=== PATIENT | male | born 1975 | race African-American/Black ===

== ENCOUNTER 2020-07-30 13:07 | Day surgery (SDC) | payer BC ==
--- NOTE | 2020-07-29 14:04 | RAD REPORT ---
EXAM DESCRIPTION: RAD - Chest Pa And Lat (2 Views) - 07/29/2020 1:58 pm CLINICAL HISTORY: pre op, pending prostate surgery COMPARISON: None TECHNIQUE: Frontal and lateral views of the chest were obtained. FINDINGS: The lungs are clear. Heart size is normal and central vasculature is within normal limit s. No pleural effusion or pneumothorax seen. No acute bony finding noted. No aortic abnormality. External cardiac monitoring device in place. IMPRESSION: No acute cardiopulmonary process.
[2020-07-29 14:34] LABS: Absolute Lymphocytes (CBC) 1.4 K/uL (0.7-4.9); Basophils % 0.5 % (0-1.3); Hematocrit 46.7 % (39.6-49.0); Lymphocytes % 17.6 % (15.3-44.8); RBC Red Blood Cell Count 5.68 M/uL (4.33-5.43)
[2020-07-29 14:42] LABS: Protime INR 0.9
[2020-07-29 15:36] LABS: BUN Blood Urea Nitrogen 23 mg/dL (7-18); Bicarbonate 30 mmol/L (21-32); Glucose Level 392 mg/dL (74-106); Potassium 4.6 mmol/L (3.5-5.1); Sodium Level 136 mmol/L (136-145)
--- NOTE | 2020-07-30 08:17 | EKG ---
Test Date: 2020-07-29 Test Time: 13:32:09 [employer]: TG MEASUREMENT RESULTS: Intervals: Rate: 86 RI: 124 QRSD: 84 QT: 346 QTc: 414 [place]: P: 34 RI: 124 QRS: -44 T: 137 INTERPRETIVE STATEMENTS: Normal sinus rhythm Possible Left atrial enlargement Left axis deviation Left ventricular hypertrophy Nonspecific T wave abnormality Abnormal ECG No previous ECG available for comparison Electronically Signed On 07-30-20 08:16:32 CDT by Parth Harvey
--- OUTSIDE RECORDS SUMMARY | 2020-07-30 13:12 | XMS REPORT | Continuity of Care Document ---
:1975 Author Organization [facility] t Address [address] [place] [address] Care Team Providers Name Role Phone Nadir Garcia MD Attending Clinician Payers Payer Name Policy Type Policy Number Effective Date Expiration Date S lj BCBS / HMO NA 2017 [facility] 00:00:00 [facility] Problems Condition Condition Condition Status Onset Resolution Last Treating Co mments Source Name Details Category Date Date Treatment Clinician Date Weakness Problem [facility] Hyp[facility] Problem [facility] Viral Problem [facility] Hy[facility]ens[facility] Type 2 Problem Active [facility] Allergies, Adverse Reactions, Alerts Allergy Allergy Status Severity Reaction(s) Onset Inactive Treating Comm ents Source Name Type Date Date Clinician No Known DA Active U 2018-11 [facility]13 [facility] 00:[facility]: [facility] 00 [facility] Social History Social Habit Start Date Stop Date Quantity Comments Source Sex Assigned At [birth year] [facility] Medications Ordered Filled Start Stop Current Ordering Indication Dosage Frequency Signature Comments Components Source Medication Medication Date Date Medication? Clinician (SIG) Name Name Amlodipine Amlodipine Yes 10 EVERY DAY Belle Besylate Besylate @ 0900 lle (NORVASC 10 (NORVASC 10 M emoria MG TAB) 10 MG TAB) 10 l MG TAB MG TAB Hospita l Insulin Insulin Yes 40 EVERY DAY [facility] Glargine Glargine @ 0900 lle (Toujeo ([facility] Solostar) Solostar) l 300 UNIT/ML 300 UNIT/ML H ospita INJ INJ l Insulin Insulin Yes 10 TWICE Belle Lispro Lispro DAILY, lle (HUMALOG (HUMALOG BEFORE Memor ia 100 UNIT/ML 100 UNIT/ML MEALS l INJ) 100 INJ) 100 Hospita UNITS/ML UNITS/ML l INJ INJ LISINOPRIL LISINOPRIL Yes 40 EVERY DAY Belle (LISINOPRIL (LISINOPRIL @ 0900 lle 40 MG TAB) 40 MG TAB) Mem oria 40 MG TAB 40 MG TAB l Hospita l METFORMIN METFORMIN Yes 1000 EVERY DAY Belle HYDROCHLORI HYDROCHLORI @ 0900 lle DE DE Memoria (METFORMIN (METFORMIN l 1,000 MG 1,000 MG Hospita TAB) 1,000 TAB) 1,000 l MG TAB MG TAB Vital Signs Vital Name Observation Time Observation Value Comments Source BP Systolic 2020-03-23 16:55:00 147 mm[Hg] [facility] BP Diastolic 2020-03-23 16:55:00 100 mm[facility]Hg[facility] Temperature 2020-03-23 16:55:00 97.7 [degF] [facility] Res[facility] rate 2020-03-23 16:55:00 16 /min [facility] Heart Rate 2020-03-23 16:55:00 89 /min [facility] Oxygen saturation by 2020-03-23 16:55:00 96 /min [place] Pulse oximetry [facility] Height 2020-03-18 05:16:00 66 [in_i] [facility] Weight 2020-03-18 05:16:00 79.917 kg [facility] BMI (Body Mass 2020-03-18 05:16:00 28.4 kg/m2 [facility] Index) [facility] BP Systolic 2019-09-08 20:13:00 114 mm[Hg] [facility]kianna jamil [facility] BP Diastolic 2019-09-08 20:13:00 78 mm[Hg] [facility] Body Temperature 2019-09-08 20:13:00 98.6 [degF] [facility] Respiratory rate 2019-09-08 20:13:00 16 /min [facility] Heart Rate 2019-09-08 20:13:00 74 /min [facility] Oxygen saturation by 2019-09-08 20:13:00 93 /min [place] Pulse oximetry [facility] Height 2019-09-08 06:00:00 68 [in_i] [facility]kianna [facility] Weight 2019-09-08 06:00:00 77.196 kg [facility] BMI (Body Mass 2019-09-08 06:00:00 25.9 kg/m2 [facility]tsv ille Index) [facility] Procedures Procedure Date / Time Performing Clinician Source Performed CBCP W/PLT-Without Diff 2020-03-21 00:00:00 [facility] CRP (C-Reactive Protein) 2020-03-21 00:00:00 [facility] FERRITIN 2020-03-21 00:00:00 [facility] FIBRINOGEN 2020-03-21 00:00:00 [facility] LDH 2020-03-21 00:00:00 [facility] CHEST 1 VIEW (AP) 2020-03-21 00:00:00 [facility] CHEST 1 VIEW (AP) 2020-03-19 00:00:00 [facility] BASIC METABOLIC PANEL 2020-03-18 00:00:00 [facility] CRP (C-Reactive Protein) 2020-03-17 00:00:00 [facility] FERRITIN 2020-03-17 00:00:00 [facility] LDH 2020-03-17 00:00:00 [facility] CBCA W/PLT & AUTO 2020-03-17 00:00:00 [facility] COMPREHENSIVE METABOLIC 2020-03-17 00:00:00 [facility] CHEST 1 VIEW (PA) 2020-03-17 00:00:00 [facility] BASIC METABOLIC PANEL 2020-03-16 00:00:00 [facility] CBCA W/PLT & AUTO 2020-03-16 00:00:00 [facility] MAGNESIUM 2020-03-16 00:00:00 [facility] FERRITIN 2020-03-16 00:00:00 [facility] LDH 2020-03-16 00:00:00 [facility] D- DIMER 2020-03-16 00:00:00 [facility] CHEST 1 VIEW (AP) 2020-03-16 00:00:00 [facility] BASIC METABOLIC PANEL 2020-03-15 00:00:00 [facility] CBCA W/PLT & AUTO 2020-03-15 00:00:00 [facility] ARTERIAL BLOOD GASES 2020-03-15 00:00:[address] [facility] CHEST 1 VIEW (AP) 2020-03-15 00:00:00 [facility] CBCA W/PLT & AUTO 2020-03-14 00:00:00 [facility] COMPREHENSIVE METABOLIC 2020-03-14 00:00:00 [facility] MAGNESIUM 2020-03-14 00:00:00 [facility] STREP PNEUMONIAE URINARY 2020-03-14 00:00:00 [facility] GROUP A STREP SCREEN 2020-03-14 00:00:00 [facility] ARTERIAL BLOOD GASES 2020-03-14 00:00:[address] [facility] CHEST 1 VIEW (AP) 2020-03-14 00:00:00 [facility] CRP (C-Reactive Protein) 2020-03-13 00:00:00 [facility] FERRITIN 2020-03-13 00:00:00 [facility] LDH 2020-03-13 00:00:00 [facility] PROCALCITONIN 2020-03-13 00:00:00 [facility] COVID-19 2020-03-13 00:00:00 [facility] BNP RAPID 2020-03-13 00:00:00 [facility] CBCD W/PLT& MANUAL DIFF 2020-03-13 00:00:00 [facility] ARTERIAL BLOOD GASES 2020-03-13 00:00:[address] [facility] INFLUENZA A & B 2020-03-13 00:00:00 [facility] BLOOD CULTURE 2020-03-13 00:00:00 [facility] COMPREHENSIVE METABOLIC 2020-03-13 00:00:00 [facility] A1C 2020-03-13 00:00:00 [facility] MAGNESIUM 2020-03-13 00:00:00 [facility] D- DIMER 2020-03-13 00:00:00 [facility] LEGIONELLA URINARY 2020-03-13 00:00:00 [facility] GROUP A STREP SCREEN 2020-03-13 00:00:[address] [facility] RESP VIRUS PANEL (RVP) 2020-03-13 00:00:00 [facility] CHEST 1 VIEW (AP) 2020-03-13 00:00:00 [facility] CBCA W/PLT & AUTO 2019-09-08 00:00:00 [facility] METABOLIC 2019-09-08 00:00:00 [facility] HEPATITIS PANEL 2019-09-08 00:00:00 [facility] A1C 2019-09-08 00:00:00 [facility] LIPID PANEL 2019-09-08 00:00:00 [facility] LACTIC ACID 2019-09-08 00:00:00 [facility] CBCA W/PLT & AUTO 2019-09-07 00:00:00 [facility] COMPREHENSIVE METABOLIC 2019-09-07 00:00:00 [facility] UA COMPLETE W/CULTURE 2019-09-07 00:00:[address] [facility] [place] PROTIME 2019-09-07 00:00:00 [facility] PTT 2019-09-07 00:00:00 [facility] CARDIAC MARKERS PANEL 2019-09-07 00:00:00 [facility] BLO[facility] 2019-09-07 00:00:00 [facility] INFLUENZA A & B 2019-09-07 00:00:00 [facility] AMMONIA 2019-09-07 00:00:00 [facility] MALARIA 2019-09-07 00:00:00 [facility] MAGNESIUM 2019-09-07 00:00:00 [facility] CHEST 1 VIEW (AP) 2019-09-07 00:00:00 [facility] COMPREHENSIVE METABOLIC 2018-12-08 00:00:00 [facility] CBCA W/PLT & AUTO 2018-12-08 00:00:00 [facility] US LEFT EXTR VENOUS 2018-12-08 00:00:00 [facility] Plan of Care Planned Activity Planned Date Details Comments Source Instructions DI for COVID-19 [facility] (Suspected or Confirmed Hosp ital ) Instructions Coronavirus Disease 2018 [facility] Encounters Start End Encounter Admission Attending Care Care Encounter Source Date/Time Date/Time Type Type Clinicians Facility Department ID 2020-03-13 2020-03-23 Discharged [facility] [id number] [facility] 09:36:00 19:30:00 Inpatient [facility] 76 [facility] 2019-09-07 2019-09-08 Discharged [facility] hospital [id number] [place] 21:42:00 22:00:00 Inpatient [facility] 42 [facility] 2018-12-08 2018-12-08 Departed Jose, [facility] [id number] [place] 19:05:00 21:54:00 Emergency [facility] Results Test Description Test Time Test Comments Results Result Comments Source Glucose (Fingerstick) 2020-03-23 17:26:00 Test Item Value Reference Range Interpretation Comme nts Glucose (Fingerstick) (test code = 19275-0) 275 65-99 [facility] Blood [id number] 04:45:00 Test Item Value Reference Range Interpretation Comments White Blood Count (test code = 6690-2) 10.8 3.9-11.8 [facility] HospitalRed Blood [id number] 04:45:00 Test Item Value Reference Range Interpretation Comments Red Blood Count (test code = 789-8) 4.51 4.18-5.86 [facility] HospitalHemoglobin2020-04-25 04:45:00 Test Item Value Reference Range Interpretation Comments Hemoglobin (test code = 718-7) 12.3 13.1-17.5 [facility] HospitalHematocrit2020-04-25 04:45:00 Test Item Value Reference Range Interpretation Comments Hematocrit (test code = 16440-7) 35.6 38.7-51.4 [facility] Corpuscular [id number] 04:45:00 Test Item Value Reference Range Interpretation Comments Mean Corpuscular Volume (test code = 78.8 79.8-99.1 52178-5) [facility] Corpuscular [id number] 04:45:00 Test Item Value Reference Range Interpretation Comments Mean Corpuscular Hemoglobin (test code 27.2 26.3-34.0 = 91282-8) [facility] Corpuscular Hgb Concent [id number] 04:45:00 Test Item Value Reference Range Interpretation Comments Mean Corpuscular Hgb Concent Diff (test 34.5 32.0-36.0 code = 38900-6) [facility] HospitalRed Cell Distribution [id number] 04:45:00 Test Item Value Reference Range Interpretation Comments Red Cell Distribution Width (test code 15.9 11.4-14.5 = 47931-5) [facility] HospitalPlatelet [id number] 04:45:00 Test Item Value Reference Range Interpretation Comments Platelet Count (test code = 777-3) 312 152-386 [facility] Platelet [id number] 04:45:00 Test Item Value Reference Range Interpretation Comments Mean Platelet Volume (test code = 8.1 6.8-10.1 88790-7) [facility] HospitalFibrinogen2020-04-25 04:45:00 Test Item Value Reference Range Interpretation Comments Fibrinogen (test code = 3255-7) 483 200-395 [facility] HospitalLactate [id number] 04:45:00 Test Item Value Reference Range Interpretation Comments Lactate Dehydrogenase (test code = 226 98-192 5153-7) [facility] HospitalC-Reactive [id number] 04:45:00 Test Item Value Reference Range Interpretation Comments C-Reactive Protein (test code = 1988-5) 5.4 0.0-1.0 [facility] HospitalFerritin2020-04-25 04:45:00 Test Item Value Reference Range Interpretation Comments Ferritin (test code = 2276-4) 511.9 11-306.8 [facility] Center[facility] [id number] 12:50:00 Test Item Value Reference Range Interpretation Comments Sodium Level (test code = 2951-2) 138 135-144 [facility] HospitalPotassium [id number] 12:50:00 Test Item Value Reference Range Interpretation Comments Potassium Level (test code = 2823-3) 2.6 3.5-5.1 Critical Result S_K:2.6 Called to and read back by: JENA GROVE RN at: 03/18/2020 15:21:35 by:ENRIQUETA CARRANZABellville Medical CenterChloride [id number] 12:50:00 Test Item Value Reference Range Interpretation Comments Chloride Level (test code = 2075-0) 96 101-111 [facility] HospitalCarbon Dioxide [id number] 12:50:00 Test Item Value Reference Range Interpretation Comments Carbon Dioxide Level (test code = 32 22-32 8-9) [facility] HospitalAnion [id number] 12:50:00 Test Item Value Reference Range Interpretation Comments Anion Gap (test code = 63445-3) 12.6 10-20 [facility] HospitalGlucose [id number] 12:50:00 Test Item Value Reference Range Interpretation Comments Glucose Level (test code = 2345-7) 160 65-99 Prediabetes 100 to 125 mg/dlDiabetes 126 mg/dl or higher Prediabetes refers to individuals with plasma glucose levelsintermediate between those considered normal and thoseconsidered diabetic and is also referred to as impairedglucose tolerance (IGT) or impaired fasting glucose (IFG). [facility] HospitalBlood Urea [id number] 12:50:00 Test Item Value Reference Range Interpretation Comments Blood Urea Nitrogen (test code = 15 07-22 3094-0) [facility] HospitalCreatinine2020-04-22 12:50:00 Test Item Value Reference Range Interpretation Comments Creatinine (test code = 2160-0) 0.7 0.61-1.24 [facility] HospitalEGFR [id number] 12:50:00 Test Item Value Reference Range Interpretation Comments EGFR Note (test code = 22618-2) 130.0 59.3-175.8 eGFR (Estimated Glomerular Filtration Rate) eGFR calculation value obtained using the [facility] Children'S HospitalQuadratic (Q) equation. The reportable reference range isrecommended to be greater than 60 ml/min/1.73m. This is anestimation of the patient's GFR and clinical correlation isrecommended. This eGFR calculation does not account for race. This resultmay differ from other equations available. [facility] HospitalCalcium [id number] 12:50:00 Test Item Value Reference Range Interpretation Comments Calcium Level (test code = 76433-6) 8.0 8.9-10.3 [facility] HospitalGranulocytes (%)2020-03-17 05:25:00 Test Item Value Reference Range Interpretation Comments Granulocytes (%) (test code = 02494-8) 83.4 37.8-74.6 [facility] HospitalLymphocytes %2020-03-17 05:25:00 Test Item Value Reference Range Interpretation Comments Lymphocytes % (test code = 736-9) 9.9 16.1-47.9 [facility] HospitalMonocytes %2020-03-17 05:25:00 Test Item Value Reference Range Interpretation Comments Monocytes % (test code = 5905-5) 6.4 4.4-13.5 [facility] HospitalEosinophils %2020-03-17 05:25:00 Test Item Value Reference Range Interpretation Comments Eosinophils % (test code = 713-8) 0.1 0.7-8.5 [facility] HospitalBasophils %2020-03-17 05:25:00 Test Item Value Reference Range Interpretation Comments Basophils % (test code = 40754-3) 0.2 0.0-2.0 [facility] HospitalGranulocytes #2020-03-17 05:25:00 Test Item Value Reference Range Interpretation Comments Granulocytes # (test code = 70868-8) 9.5 1.5-8.8 [facility] HospitalLymphocytes #2020-03-17 05:25:00 Test Item Value Reference Range Interpretation Comments Lymphocytes # (test code = 17665-1) 1.1 0.6-5.7 [facility] HospitalMonocytes #2020-03-17 05:25:00 Test Item Value Reference Range Interpretation Comments Monocytes # (test code = 742-7) 0.7 0.2-1.6 [facility] HospitalEosinophils #2020-03-17 05:25:00 Test Item Value Reference Range Interpretation Comments Eosinophils # (test code = 711-2) 0.0 0.0-1.0 [facility] HospitalBasophils #2020-03-17 05:25:00 Test Item Value Reference Range Interpretation Comments Basophils # (test code = 31551-4) 0.0 0.0-0.2 [facility] HospitalManual [id number] 05:25:00 Test Item Value Reference Range Interpretation Comments Manual Differential (test code = Manual NO Differential) [facility] HospitalAlbumin2020-04-21 05:25:00 Test Item Value Reference Range Interpretation Comments Albumin (test code = 1751-7) 2.6 3.5-5.0 [facility] HospitalTotal [id number] 05:25:00 Test Item Value Reference Range Interpretation Comments Total Bilirubin (test code = 1975-2) 0.6 0.2-1.2 [facility] HospitalAlkaline [id number] 05:25:00 Test Item Value Reference Range Interpretation Comments Alkaline Phosphatase (test code = 69 32-91 6768-6) [facility] HospitalTotal [id number] 05:25:00 Test Item Value Reference Range Interpretation Comments Total Protein (test code = 2885-2) 6.2 6.5-8.1 [facility] HospitalAlanine Aminotransferase (ALT/SGPT)2020-03-17 05:25:00 Test Item Value Reference Range Interpretation Comments Alanine Aminotransferase (ALT/SGPT) 14 7-55 (test code = 1742-6) [facility] HospitalAspartate Amino Transf (AST/SGOT)2020-03-17 05:25:00 Test Item Value Reference Range Interpretation Comments Aspartate Amino Transf (AST/SGOT) (test 16 15-41 code = 1920-8) [facility] HospitalGlobulin2020-04-21 05:25:00 Test Item Value Reference Range Interpretation Comments Globulin (test code = 76880-0) 3.6 2.3-3.5 [facility] HospitalAlbumin/Globulin [id number] 05:25:00 Test Item Value Reference Range Interpretation Comments Albumin/Globulin Ratio (test code = 0.7 1.2-2.2 1759-0) [facility] HospitalD-[id number] 12:14:00 Test Item Value Reference Range Interpretation Comments D-Dimer (test code = 71589-4) 388 0-499 The 100% NPV (Negative Predictive Value)for DVT/PEexclusion is <500 ng/mL FEU as suggested by the manufacturerand as approved by the FDA.Clinical correlation is needed. [facility] HospitalMagnesium [id number] 06:15:00 Test Item Value Reference Range Interpretation Comments Magnesium Level (test code = 79500-2) 2.1 1.8-2.5 [facility] HospitalArterial Blood [id number] 10:05:00 Test Item Value Reference Range Interpretation Comments Arterial Blood pH (test code = 2744-1) 7.470 7.350-7.450 [facility] HospitalArterial Blood pCO2 at Patient [id number] 10:05:00 Test Item Value Reference Range Interpretation Comments Arterial Blood pCO2 at Patient Temp 43.8 32.0-48.0 (test code = 2019-8) [facility] [id number] 10:05:00 Test Item Value Reference Range Interpretation Comments Blood Gas HCO3 (test code = 1960-4) 31.5 21.0-28.0 [facility] HospitalArterial Blood Total [id number] 10:05:00 Test Item Value Reference Range Interpretation Comments Arterial Blood Total CO2 (test code = 26.9 23.0-30.0 29116-8) [facility] Base [id number] 10:05:00 Test Item Value Reference Range Interpretation Comments Blood Gas Base Excess (test code = 7.5 -3.0-3.0 1924-7) [facility] Gas [id number] 10:05:00 Test Item Value Reference Range Interpretation Comments Blood Gas PO2 (test code = 2703-7) 55.0 83.0-108.0 [facility] Hospitalial Bld O2 Saturation (Measur)2020-03-15 10:05:00 Test Item Value Reference Range Interpretation Comments Arterial Bld O2 Saturation (Measur) 86.5 95.0-99.0 (test code = 2708-6) [facility] HospitalAllen [id number] 10:05:00 Test Item Value Reference Range Interpretation Comments Chintan Test (test code = Chintan Test) YES [facility] Gas Puncture [id number] 10:05:00 Test Item Value Reference Range Interpretation Comments Blood Gas Puncture Site (test RIGHT RADIAL code = Blood Gas Puncture Site) [facility] HospitalLegionella Antigen (LAB)2020-03-14 18:00:00 Test Item Value Reference Range Interpretation Comments Legionella Antigen (LAB) (test code NEGATIVE NEGATIVE = Legionella Antigen (LAB)) Presumptive negative for L. pneumophilia serogroup 1 antigenin urine, suggesting no recent infectionor currentinfection. However, infection due to Legionella cannot beruled out since other serogroups and species may causedisease, antigen may not be presnt in urine in earlyinfection, and the level of antigen present in the urine maybe below the detection limit of the test.[facility] Centertreptococcus pneumoniae [id number] 18:00:00 Test Item Value Reference Range Interpretation Comments Streptococcus pneumoniae Antigen NEGATIVE NEGATIVE (test code = Streptococcus pneumoniae Antigen) Presumptive negative for pneumococcal pneumonia, suggestingno current or recent pneumococcal infection. However,infection due to S. pneumoniae cannot be ruled out since theantigen presnt in the specimen may be below the detectionlimit of the test.[facility] HospitalGroup A Streptococcus [id number] 00:00:00 Test Item Value Reference Range Interpretation Comments Group A Streptococcus Screen (test NEGATIVE NEGATIVE code = 88181-5) Negative screens will be confirmed by culture. Please seeseparate microbiology report for these results.[facility] HospitalIS SPECIMEN BLOODY OR MUCOID?2020-03-14 00:00:00 Test Item Value Reference Range Interpretation Comments IS SPECIMEN BLOODY OR MUCOID? (test NO NO code = IS SPECIMEN BLOODY OR MUCOID?) *This test will only indicate the presence of Strep Aantigen in the throat swab specimen from both viable andnon-viable Group A Streptococcus bacteria. It does notdetermine the qualitative concentration of Strep A antigen. *Respiratory infections can be caused by Streptococci ofserogroups other than Aas well as other pathogens. Thistest does not differentiate betweeen carriers and infectedindividuals. *As with all diagnostic tests, all results must beinterpreted together with other clinical informationavailable to the physician.[facility] HospitalInfluenza Virus Type A (PCR)2020-03-14 00:00:00 Test Item Value Reference Range Interpretation Comments Influenza Virus Type A (PCR) (test Negative Negative code = Influenza Virus Type A (PCR)) [facility] HospitalInfluenza Virus Type B (PCR)2020-03-14 00:00:00 Test Item Value Reference Range Interpretation Comments Influenza Virus Type B (PCR) (test Negative Negative code = Influenza Virus Type B (PCR)) [facility] HospitalResp Syncytial Virus Type A (PCR)2020-03-14 00:00:00 Test Item Value Reference Range Interpretation Comments Resp Syncytial Virus Type A (PCR) Negative Negative (test code = Resp Syncytial Virus Type A (PCR)) [facility] HospitalResp Syncytial Virus Type B (PCR)2020-03-14 00:00:00 Test Item Value Reference Range Interpretation Comments Resp Syncytial Virus Type B (PCR) Negative Negative (test code = Resp Syncytial Virus Type B (PCR)) [facility] HospitalParainfluenza Type 1 (PCR)2020-03-14 00:00:00 Test Item Value Reference Range Interpretation Comments Parainfluenza Type 1 (PCR) (test Negative Negative code = Parainfluenza Type 1 (PCR)) [facility]2020-03-14 00:00:00 Test Item Value Reference Range Interpretation Comments Parainfluenza Type 2 (PCR) (test Negative Negative code = Parainfluenza Type 2 (PCR)) [facility] (PCR)2020-03-14 00:00:00 Test Item Value Reference Range Interpretation Comments Parainfluenza Type 3 (PCR) (test Negative Negative code = Parainfluenza Type 3 (PCR)) [facility]Rhinovirus (PCR)2020-03-14 00:00:00 Test Item Value Reference Range Interpretation Comments Rhinovirus (PCR) (test code = Negative Negative [facility]inovirus (PCR)) [facility] ([facility])2020-03-14 00:00:00 Test Item Value Reference Range Interpretation Comments Human Metapneumovirus (PCR) (test Negative Negative code = Human Metapneumovirus (PCR)) [facility]denovirus ([facility])2020-03-14 00:00:00 Test Item Value Reference Range Interpretation Comments Adenovirus (PCR) (test code = Negative Negative Adenovirus (PCR)) Performed at: [address] [id number] Director: Timothy SALDANA, Phone: [phone] [facility]ann [facility] HospitalBlood [id number] 14:23:00 Test Item Value Reference Range Interpretation Comments Blood Culture (test code NO GROWTH AT 5 DAYS. = Blood Culture) [facility] HospitalInfluenza Type A [id number] 10:15:00 Test Item Value Reference Range Interpretation Comments Influenza Type A Antigen (test code NEGATIVE NEGATIVE = 57254-7) [facility]Influenza Type B [id number] 10:15:00 Test Item Value Reference Range Interpretation Comments Influenza Type B Antigen (test code NEGATIVE NEGATIVE = 66003-3) *This test method is capable of detecting both viable andnon-viable influenza particles. Performancedepends on theantigen load and may not correlate with other diagnosticmethods performed on the same specimen. *Results of the FLUA+B test should be correlated with theclinical history, epidemiological data and other dataavailable to the clinician evaluating the patient.[facility] HospitalCoronavirus (PCR)2020-03-13 10:15:00 Test Item Value Reference Range Interpretation Comments Coronavirus (PCR) (test code = See Comment Coronavirus (PCR)) TEST RESULTS SARS-CoV-2 DETECTED SARS-CoV-2 RNA DETECTEDPositive results are indicative of the presence zaYZMJ-EeT-3 RNA; clinical correlation with patient historyand other diagnostic information is necessary to determinepatient infection status. Positive results do not rule outbacterial infections or co-infection with other viruses.Positive and negative predictive values of testing arehighly dependent onprevalence. False positive test resultsare more likley when prevalence is moderate to low. The expected result is Negative (Not Detected). The SARS-CoV-2 test is intended for the qualitativedetection of nucleic acid from SARS-CoV-2 in nasopharyngealand oropharyngeal swab samples from patients who meetCOVID-19 clinical and/or epidemiological criteria. For lowerrespiratory tract specimens, the assay is submitted forauthorization by FDA under an Emergency Use Authorization(EUA). Testing methodology selvin-time RT-PCR. If receivedas seperate collection devices, nasopharyngeal and batool-pharyngeal specimens are combined for analysis. Additionalspecimens may be split to a seperate accession for analysisand reporting as this test includes a single unit ofservice. Test results must be correlated with clinical presentationand evaluated in the context of other laboratory andepidemiological data. Test performance can be affectedbecause the epidemiology and clinical spectrum of infectioncaused by SARS-CoV-2 is not fully known. For example, theoptimum types of specimen to collect and when during thecourse of infection these specimens are most likely tocontain detectable viral RNA may not be known. This test has not been Food and Drug Administration (FDA)cleared or approved and has been authorized by FDA u nderEmergency Use Authorization (EUA). This test is onlyauthorized for the duration of the declaration thatcircumstances exist justifying the authorization ofemergency use of the vitro diagnostic test for detectionand/or diagnosis of SARS-CoV-2 under section 564(b)(1) ofthe Act, 21 U.S.C. section 360bbb-3(b)(1), unless theauthorization is terminated or revoked sooner. [facility] are certified under the ClinicalLaboratory Improvement Amendments of 1988 (CLIA), 42 U.S.C.section 263a, to perform high complexity test. Fact Sheet for HealthCare Providers:https://[employer]/h9mggcs(or :https://www.cdc.gov/coronavirus/2019-ncov/downloads/Vwtkscanh-usc-Czbsrwstcy-Pr xsavnfu-5246-vVoF.pdf) Fact Sheet for Patients:https://[employer]/tkws48q(or:https://www.cdc.gov/coronavirus/2019-nco v/downloads/Ddsqzkpaf-prk-Fjvikgsl-2019-nCoV.pdf) Performed at: MAINPerforming Lab: [facility] [place] [address]. [id number] Director: Dax Marquis M.D.[phone] [facility] #[id number] CLIA #[id number] CALLED TO VISHNU ON 03/16/20 AT 15:00 [facility] [id number] 10:02:00 Test Item Value Reference Range Interpretation Comments Segmented Neutrophils (test code = 81 42-75 19229-2) [facility] [id number] 10:02:00 Test Item Value Reference Range Interpretation Comments Band Neutrophils (test code = 32238-7) 6 2-10 [facility] Hospital[id number] 10:02:00 Test Item Value Reference Range Interpretation Comments Lymphocytes (test code = 53236-1) 8 20-51 [facility] HospitalMonocytes2020-04-17 10:02:00 Test Item Value Reference Range Interpretation Comments Monocytes (test code = 53973-3) 5 2-9 [facility] HospitalPlatelet [id number] 10:02:00 Test Item Value Reference Range Interpretation Comments Platelet Estimate (test code = ADEQUATE ADEQUATE 88464-7) [facility] HospitalPlatelet [id number] 10:02:00 Test Item Value Reference Range Interpretation Comments Platelet Morphology (test code = NORMAL NORMAL 78044-6) [facility] HospitalNormal RBC [id number] 10:02:00 Test Item Value Reference Range Interpretation Comments Normal RBC Morphology (test SEE MORPHOLOGY NORMAL code = 69484-7) [facility] HospitalPczuplkvOijihekeoeaaf5581-97-82 10:02:00 Test Item Value Reference Range Interpretation Comments Procalcitonin (test code = 42643-4) 0.15 0-0.49 PROCALCITONIN <0.50 ng/mL Systemic infection is not likely. Local bacterial infection is possible. PROCALCITONIN >0.50-2.00 ng/mL Systemic infection is possible. PROCALCITONIN >2.00 ng/mL Systemic infection is likely, unless other causes are known PROCALCITONIN >10.00 ng/mL Critical systemic inflammatory response, most likely due to bacterial sepsis.[facility] HospitalB-Type Natriuretic [id number] 10:02:00 Test Item Value Reference Range Interpretation Comments B-Type Natriuretic Peptide (test code = 68 0-100 72702-7) [facility] HospitalHemoglobin A1c [id number] 10:02:00 Test Item Value Reference Range Interpretation Comments Hemoglobin A1c Percent (test code = 10.20 4.0-5.6 4548-4) Prediabetes 5.7% to 6.4%Diabetes 6.5% or higher Elevated levels of HbA1c suggest the need for moreaggressive treatmentof glycemia. The [place] Diabetes[employer] recommends that a primary goal of therapy shouldbe a HbA1c of <7% and that physicians should reevaluate thetreatment regimen in patients with HbA1c values consistently>8%. [facility] HospitalN/[id number] 10:02:00 Test Item Value Reference Range Interpretation Comments N/A (test code = 29175-0) 245 A1C Result% Estimated Avg.Glucose (EAG) 6.0% 126 mg/dL 6.5% 140 mg/dL 7.0% 154 mg/dL 7.5% 169 mg/dL 8.0% 183 mg/dL 8.5% 197 mg/dL 9.0% 212 mg/dL 9.5% 226 mg/dL 10.0% 240 mg/dL Reference: kenneth Brown, Diabetes Care 31: 1437, 2008.[facility] HospitalRETICULOCYTE [id number] 07:14:00 Test Item Value Reference Range Interpretation Comments RED BLOOD CELL (test code = RBC) 2.80 M/mm3 3.8-5.5 L RETIC COUNT (AUTOMATED) (test 3.59 % auto 0.63-2.24 H code = RETICA) RETICULOCYTE NUMBER (test code = 0.101 M/mm3 0.0324-0.1072 N RETN) IMMATURE RETICULOCYTE FRACTION 40.0 % 2.3-13.4 H (test code = IRF) [id number] 07:14:00 Test Item Value Reference Range Interpretation Comments HAPTOGLOBIN (test code <10 mg/dL 34-200 A Perfo rmed At: BN = HAPT) [facility] [address] [place], [place] [id number] ra Renetta SALDANA Ph:[phone] GLUCOSE BEDSIDE [id number] 15:39:00 Test Item Value Reference Range Interpretation Comments GLUCOSE BEDSIDE TESTING (test code 345 MG/DL 70-119 H = GLUBED) G6PD [id number] 11:09:00 Test Item Value Reference Range Interpretation Comments RBC MASS 2.82 x10E6/uL 4.14-5.80 A (test code = RBCMASS) ARYGMGJ-7-ZAX 295 146-376 INFCE Result U nits: U/10E12 YDRO QN (test RBCWhen decrea sed, G-6-PD, code = Quant. values a re G6PDQN) associated with acute hemolytic anemi a when deficient indiv iduals areexposed to o xidative stress, such as with certainmedicati ons (e.g., primaquine), in fection, or ingestion offav a beans. Caution: In pat ients with acute hemolysis (e.g., abnormally low RBC values), testing for G-6 -PD maybe falsely normal because older erythrocy jaiden with a higherenzyme de ficiency have been hemol yzed. Young erythrocytesand reticulocytes h ave normal or near-normal enzymeactivity. Normal values of G-6-P D may be measured forsev eral weeks following a hem olytic event.Performed At: [facility] [address] [id number] Kyle L MD Ph:[phone] rformed At: [facility] [id number] ra Renetta SALDANA Ph:[phone] GLUCOSE BEDSIDE [id number] 10:53:00 Test Item Value Reference Range Interpretation Comments GLUCOSE BEDSIDE TESTING (test code 299 MG/DL 70-119 H = GLUBED) GLUCOSE BEDSIDE [id number] 10:49:00 Test Item Value Reference Range Interpretation Comments GLUCOSE BEDSIDE TESTING (test code 165 MG/DL 70-119 H = GLUBED) CBC W/MANUAL [id number] 06:15:00 Test Item Value Reference Range Interpretation Comments WHITE BLOOD CELL (test 9.5 K/mm3 4.1-12.1 N code = WBC) RED BLOOD CELL (test 2.79 M/mm3 3.8-5.5 L code = RBC) HEMOGLOBIN (test code = 7.5 G/DL 10.6-15.8 L HGB) HEMATOCRIT (test code = 24.4 % 31.8-47.4 L HCT) MEAN CELL VOLUME (test 87.5 fL 80.1-101.1 N code = MCV) MEAN CELL HGB (test code 26.9 pg 25.3-35.3 N = MCH) MEAN CELL HGB 30.7 G/DL 32.7-35.1 L CONCETRATION (test code = MCHC) RED CELL DISTRIBUTION 15.4 % 12.2-16.4 N WIDTH (test code = RDW) RED CELL DISTRIBUTION 48.2 fL 35.1-43.9 H WIDTH (test code = RDW-SD) PLATELET COUNT (test 154 K/mm3 155-337 L code = PLT) MEAN PLATELET VOLUME 11.7 fL 7.6-10.4 H (test code = MPV) GRANULOCYTE % (test code 63.3 % 37.8-82.6 N = GR%) IMMATURE GRANULOCYTE % 10.9 % 0.0-2.0 H (test code = IG%) LYMPHOCYTE % (test code 18.3 % 14.1-45.4 N = LY%) MONOCYTE % (test code = 7.2 % 2.5-11.7 N MO%) EOSINOPHIL % (test code 0.1 % 0.0-6.2 N = EO%) BASOPHIL % (test code = 0.2 % 0.0-2.6 N BA%) NUCLEATED RBC % (test 2.5 /100WBC% 0.0-1.0 H code = NRBC%) GRANULOCYTE # (test code 6.02 k/mm3 2.0-13.7 N = GR#) IMMATURE GRANULOCYTE # 1.04 K/mm3 0.00-0.03 H (test code = IG#) LYMPHOCYTE # (test code 1.74 K/mm3 0.6-3.8 N = LY#) MONOCYTE # (test code = 0.68 K/mm3 0.11-0.59 H MO#) EOSINOPHIL # (test code 0.01 K/mm3 0.0-0.4 N = EO#) BASOPHIL # (test code = 0.02 K/mm3 0.0-0.1 N BA#) NUCLEATED RBC # (test 0.24 K/mm3 0.00-0.05 H code = NRBC#) MANUAL DIFF REQUIRED MAN DIFF INDICATED CRITERIA (test code = MDIFF) DIFF/SCN WBC [id number] 06:15:00 Test Item Value Reference Range Interpretation Comments TOTAL CELLS COUNTED (test 100 #CELLS >100 code = TCC) SEGMENTED NEUTROPHILS 70 % 40-75 N (test code = SEG) LYMPHOCYTE (test code = 12 % 12.6-43.5 L LYMPH) ATYPICAL LYMPH (test code 1 % 0-0 H = ALYMPH) MONOCYTE (test code = MON) 11 % 4.2-12.7 N METAMYELOCYTE (test code = 1 % 0-2 N META) MYELOCYTE (test code = 5 % 0-1 H MYELO) NUCLEATED RED BLOOD CELL 5.00 #/100WBC 0-0.5 H (test code = NRBC) POLYCHROMASIA (test code = SLIGHT ON SCAN NONE POLC) HYPOCHROMIA (test code = SLIGHT ON SCAN NONE HYPO) BASOPHILIC STIPPLING (test FEW ON SCAN NONE code = STP) STOMATOCYTES (test code = MOD ON SCAN NONE A STO) PLATELET ESTIMATE (test ADEQ ON SCAN ADEQUATE code = PLTEST) PLATELET MORPHOLOGY (test LARGE FEW ON SCAN NORMAL PLTS code = PLTMORPH) PLATELET MORPHOLOGY (test GIANT RARE ON SCAN NORMAL PLTS code = [id number]) BASIC METABOLIC [id number] 04:23:00 Test Item Value Reference Range Interpretation Comments SODIUM (test code = 137.0 mmol/L 133-144 N NA) POTASSIUM (test code 3.4 mmol/L 3.5-5.1 L = K) CHLORIDE (test code 102 mmol/L 95-105 N = CL) CARBON DIOXIDE (test 32 mmol/L 21-32 N code = CO2) ANION GAP (test code 3.0 GAP calc 4.0-15.0 L = GAP) GLUCOSE (test code = 194 MG/DL 70-110 H GLU) BLOOD UREA NITROGEN 16 MG/DL 7-18 N (test code = BUN) CREATININE (test 0.91 MG/DL 0.55-1.30 N Results may be code = CREAT) depressed if patient is takingN-Acetylc yste ine (NAC) and Metamizole (Dipyrone). CALCIUM (test code = 7.2 MG/DL 8.5-10.1 L CA) INDEX HEMOLYSIS 1 NORMAL <10 MG 1 NORMAL (test code = Index/DL HEMINDEX) INDEX ICTERIC (test 1 NORMAL <2 MG 1 NORMAL code = ICTINDEX) Index/DL INDEX LIPEMIA (test 1 NORMAL <50 MG 1 NORMAL code = LIPINDEX) Index/DL [id number] 04:23:00 Test Item Value Reference Range Interpretation Comments PHOSPHOROUS (test code = PHOS) 2.6 MG/DL 2.5-4.9 [id number] 04:23:00 Test Item Value Reference Range Interpretation Comments MAGNESIUM (test code = MAG) 2.0 MG/DL 1.6-2.6 N BASIC METABOLIC [id number] 04:16:00 Test Item Value Reference Range Interpretation Comments SODIUM (test code = NA) 137.0 mmol/L 133-144 N POTASSIUM (test code = K) 3.4 mmol/L 3.5-5.1 L CHLORIDE (test code = CL) 102 mmol/L 95-105 N CARBON DIOXIDE (test code 32 mmol/L 21-32 N = CO2) ANION GAP (test code = 3.0 GAP calc 4.0-15.0 L GAP) GLUCOSE (test code = GLU) 194 MG/DL 70-110 H BLOOD UREA NITROGEN (test 16 MG/DL 7-18 N code = BUN) CREATININE (test code = MG/DL 0.55-1.30 CREAT) CALCIUM (test code = CA) 7.2 MG/DL 8.5-10.1 L INDEX HEMOLYSIS (test 1 NORMAL <10 MG 1 NORMAL code = HEMINDEX) Index/DL INDEX ICTERIC (test code 1 NORMAL <2 MG 1 NORMAL = ICTINDEX) Index/DL INDEX LIPEMIA (test code 1 NORMAL <50 MG 1 NORMAL = LIPINDEX) Index/DL [id number] 04:16:00 Test Item Value Reference Range Interpretation Comments PHOSPHOROUS (test code = PHOS) MG/DL 2.5-4.9 [id number] 04:16:00 Test Item Value Reference Range Interpretation Comments MAGNESIUM (test code = MAG) 2.0 MG/DL 1.6-2.6 N CBC W/MANUAL [id number] 03:57:00 Test Item Value Reference Range Interpretation Comments WHITE BLOOD CELL (test 9.5 K/mm3 4.1-12.1 N code = WBC) RED BLOOD CELL (test 2.79 M/mm3 3.8-5.5 L code = RBC) HEMOGLOBIN (test code = 7.5 G/DL 10.6-15.8 L HGB) HEMATOCRIT (test code = 24.4 % 31.8-47.4 L HCT) MEAN CELL VOLUME (test 87.5 fL 80.1-101.1 N code = MCV) MEAN CELL HGB (test code 26.9 pg 25.3-35.3 N = MCH) MEAN CELL HGB 30.7 G/DL 32.7-35.1 L CONCETRATION (test code = MCHC) RED CELL DISTRIBUTION 15.4 % 12.2-16.4 N WIDTH (test code = RDW) RED CELL DISTRIBUTION 48.2 fL 35.1-43.9 H WIDTH (test code = RDW-SD) PLATELET COUNT (test 154 K/mm3 155-337 L code = PLT) MEAN PLATELET VOLUME 11.7 fL 7.6-10.4 H (test code = MPV) GRANULOCYTE % (test code 63.3 % 37.8-82.6 N = GR%) IMMATURE GRANULOCYTE % 10.9 % 0.0-2.0 H (test code = IG%) LYMPHOCYTE % (test code 18.3 % 14.1-45.4 N = LY%) MONOCYTE % (test code = 7.2 % 2.5-11.7 N MO%) EOSINOPHIL % (test code 0.1 % 0.0-6.2 N = EO%) BASOPHIL % (test code = 0.2 % 0.0-2.6 N BA%) NUCLEATED RBC % (test 2.5 /100WBC% 0.0-1.0 H code = NRBC%) GRANULOCYTE # (test code 6.02 k/mm3 2.0-13.7 N = GR#) IMMATURE GRANULOCYTE # 1.04 K/mm3 0.00-0.03 H (test code = IG#) LYMPHOCYTE # (test code 1.74 K/mm3 0.6-3.8 N = LY#) MONOCYTE # (test code = 0.68 K/mm3 0.11-0.59 H MO#) EOSINOPHIL # (test code 0.01 K/mm3 0.0-0.4 N = EO#) BASOPHIL # (test code = 0.02 K/mm3 0.0-0.1 N BA#) NUCLEATED RBC # (test 0.24 K/mm3 0.00-0.05 H code = NRBC#) MANUAL DIFF REQUIRED MAN DIFF INDICATED CRITERIA (test code = MDIFF) DIFF/SCN WBC [id number] 03:57:00 Test Item Value Reference Range Interpretation Comments TOTAL CELLS COUNTED (test code = #CELLS >100 TCC) SEGMENTED NEUTROPHILS (test code = % 40-75 SEG) LYMPHOCYTE (test code = LYMPH) % 12.6-43.5 MORPHOLOGY COMMENT (test code = MOC) ON SCAN NORMAL RBCS PLATELET ESTIMATE (test code = ON SCAN ADEQUATE PLTEST) CBC W/MANUAL [id number] 03:57:00 Test Item Value Reference Range Interpretation Comments WHITE BLOOD CELL (test 9.5 K/mm3 4.1-12.1 N code = WBC) RED BLOOD CELL (test 2.79 M/mm3 3.8-5.5 L code = RBC) HEMOGLOBIN (test code = 7.5 G/DL 10.6-15.8 L HGB) HEMATOCRIT (test code = 24.4 % 31.8-47.4 L HCT) MEAN CELL VOLUME (test 87.5 fL 80.1-101.1 N code = MCV) MEAN CELL HGB (test code 26.9 pg 25.3-35.3 N = MCH) MEAN CELL HGB 30.7 G/DL 32.7-35.1 L CONCETRATION (test code = MCHC) RED CELL DISTRIBUTION 15.4 % 12.2-16.4 N WIDTH (test code = RDW) RED CELL DISTRIBUTION 48.2 fL 35.1-43.9 H WIDTH (test code = RDW-SD) PLATELET COUNT (test 154 K/mm3 155-337 L code = PLT) MEAN PLATELET VOLUME 11.7 fL 7.6-10.4 H (test code = MPV) GRANULOCYTE % (test code 63.3 % 37.8-82.6 N = GR%) IMMATURE GRANULOCYTE % 10.9 % 0.0-2.0 H (test code = IG%) LYMPHOCYTE % (test code 18.3 % 14.1-45.4 N = LY%) MONOCYTE % (test code = 7.2 % 2.5-11.7 N MO%) EOSINOPHIL % (test code 0.1 % 0.0-6.2 N = EO%) BASOPHIL % (test code = 0.2 % 0.0-2.6 N BA%) NUCLEATED RBC % (test 2.5 /100WBC% 0.0-1.0 H code = NRBC%) GRANULOCYTE # (test code 6.02 k/mm3 2.0-13.7 N = GR#) IMMATURE GRANULOCYTE # 1.04 K/mm3 0.00-0.03 H (test code = IG#) LYMPHOCYTE # (test code 1.74 K/mm3 0.6-3.8 N = LY#) MONOCYTE # (test code = 0.68 K/mm3 0.11-0.59 H MO#) EOSINOPHIL # (test code 0.01 K/mm3 0.0-0.4 N = EO#) BASOPHIL # (test code = 0.02 K/mm3 0.0-0.1 N BA#) NUCLEATED RBC # (test 0.24 K/mm3 0.00-0.05 H code = NRBC#) MANUAL DIFF REQUIRED MAN DIFF INDICATED CRITERIA (test code = MDIFF) DIFF/SCN WBC [id number] 03:57:00 Test Item Value Reference Range Interpretation Comments TOTAL CELLS COUNTED (test code = #CELLS >100 TCC) SEGMENTED NEUTROPHILS (test code = % 40-75 SEG) LYMPHOCYTE (test code = LYMPH) % 12.6-43.5 MORPHOLOGY COMMENT (test code = MOC) ON SCAN NORMAL RBCS PLATELET ESTIMATE (test code = ON SCAN ADEQUATE PLTEST) GLUCOSE BEDSIDE [id number] 20:19:00 Test Item Value Reference Range Interpretation Comments GLUCOSE BEDSIDE TESTING (test code 330 MG/DL 70-119 H = GLUBED) GLUCOSE BEDSIDE [id number] 16:30:00 Test Item Value Reference Range Interpretation Comments GLUCOSE BEDSIDE TESTING (test code 348 MG/DL 70-119 H = GLUBED) CBC W/MANUAL [id number] 16:19:00 Test Item Value Reference Range Interpretation Comments WHITE BLOOD CELL (test 9.5 K/mm3 4.1-12.1 N code = WBC) RED BLOOD CELL (test 3.03 M/mm3 3.8-5.5 L code = RBC) HEMOGLOBIN (test code = 8.2 G/DL 10.6-15.8 L HGB) HEMATOCRIT (test code = 26.4 % 31.8-47.4 L HCT) MEAN CELL VOLUME (test 87.1 fL 80.1-101.1 N code = MCV) MEAN CELL HGB (test code 27.1 pg 25.3-35.3 N = MCH) MEAN CELL HGB 31.1 G/DL 32.7-35.1 L CONCETRATION (test code = MCHC) RED CELL DISTRIBUTION 15.6 % 12.2-16.4 N WIDTH (test code = RDW) RED CELL DISTRIBUTION 49.1 fL 35.1-43.9 H WIDTH (test code = RDW-SD) PLATELET COUNT (test 148 K/mm3 155-337 L code = PLT) MEAN PLATELET VOLUME 11.4 fL 7.6-10.4 H (test code = MPV) GRANULOCYTE % (test code 66.1 % 37.8-82.6 N = GR%) IMMATURE GRANULOCYTE % 10.3 % 0.0-2.0 H (test code = IG%) LYMPHOCYTE % (test code 17.8 % 14.1-45.4 N = LY%) MONOCYTE % (test code = 5.4 % 2.5-11.7 N MO%) EOSINOPHIL % (test code 0.3 % 0.0-6.2 N = EO%) BASOPHIL % (test code = 0.1 % 0.0-2.6 N BA%) NUCLEATED RBC % (test 1.5 /100WBC% 0.0-1.0 H code = NRBC%) GRANULOCYTE # (test code 6.27 k/mm3 2.0-13.7 N = GR#) IMMATURE GRANULOCYTE # 0.98 K/mm3 0.00-0.03 H (test code = IG#) LYMPHOCYTE # (test code 1.69 K/mm3 0.6-3.8 N = LY#) MONOCYTE # (test code = 0.51 K/mm3 0.11-0.59 N MO#) EOSINOPHIL # (test code 0.03 K/mm3 0.0-0.4 N = EO#) BASOPHIL # (test code = 0.01 K/mm3 0.0-0.1 N BA#) NUCLEATED RBC # (test 0.14 K/mm3 0.00-0.05 H code = NRBC#) MANUAL DIFF REQUIRED MAN DIFF INDICATED CRITERIA (test code = MDIFF) DIFF/SCN PENDING RECEIPT OF SPECIMEN PER B.LAB.AK AT 09/10/19 1314WBC DIFFERENTIAL 2019-09-10 16:19:00 Test Item Value Reference Range Interpretation Comments TOTAL CELLS COUNTED (test 100 #CELLS >100 code = TCC) SEGMENTED NEUTROPHILS 80 % 40-75 H (test code = SEG) LYMPHOCYTE (test code = 9 % 12.6-43.5 L LYMPH) MONOCYTE (test code = MON) 4 % 4.2-12.7 L METAMYELOCYTE (test code = 1 % 0-2 N META) MYELOCYTE (test code = 6 % 0-1 H MYELO) POLYCHROMASIA (test code = SLIGHT ON SCAN NONE POLC) BASOPHILIC STIPPLING (test FEW ON SCAN NONE code = STP) STOMATOCYTES (test code = FEW ON SCAN NONE STO) TOXIC GRANULATION (test SLIGHT ON SCAN NONE code = TOX) PLATELET ESTIMATE (test SL DECR ON SCAN ADEQUATE code = PLTEST) PLATELET MORPHOLOGY (test AGG.RARE ON SCAN NORMAL PLTS code = PLTMORPH) PLATELET MORPHOLOGY (test GIANT RARE ON SCAN NORMAL PLTS code = [id number]) PENDING RECEIPT OF SPECIMEN PER [facility] AT 09/10/19 1314BASIC METABOLIC PANEL 2019-09-10 15:59:00 Test Item Value Reference Range Interpretation Comments SODIUM (test code = 133.0 mmol/L 133-144 N NA) POTASSIUM (test code 3.6 mmol/L 3.5-5.1 N = K) CHLORIDE (test code 99 mmol/L 95-105 N = CL) CARBON DIOXIDE (test 33 mmol/L 21-32 H code = CO2) ANION GAP (test code 1.0 GAP calc 4.0-15.0 L = GAP) GLUCOSE (test code = 324 MG/DL 70-110 H GLU) BLOOD UREA NITROGEN 16 MG/DL 7-18 N (test code = BUN) CREATININE (test 1.10 MG/DL 0.55-1.30 N Results may be code = CREAT) depressed if patient is takingN-Acetylc yste ine (NAC) and Metamizole (Dipyrone). CALCIUM (test code = 7.4 MG/DL 8.5-10.1 L CA) INDEX HEMOLYSIS 1 NORMAL <10 MG 1 NORMAL (test code = Index/DL HEMINDEX) INDEX ICTERIC (test 1 NORMAL <2 MG 1 NORMAL code = ICTINDEX) Index/DL INDEX LIPEMIA (test 2 TRACE 50-100 1 NORMAL code = LIPINDEX) MG Index/DL [id number] 15:59:00 Test Item Value Reference Range Interpretation Comments PHOSPHOROUS (test code = PHOS) 1.7 MG/DL 2.5-4.9 L [id number] 15:59:00 Test Item Value Reference Range Interpretation Comments MAGNESIUM (test code = MAG) 2.1 MG/DL 1.6-2.6 N CBC W/MANUAL [id number] 15:49:00 Test Item Value Reference Range Interpretation Comments WHITE BLOOD CELL (test 9.5 K/mm3 4.1-12.1 N code = WBC) RED BLOOD CELL (test 3.03 M/mm3 3.8-5.5 L code = RBC) HEMOGLOBIN (test code = 8.2 G/DL 10.6-15.8 L HGB) HEMATOCRIT (test code = 26.4 % 31.8-47.4 L HCT) MEAN CELL VOLUME (test 87.1 fL 80.1-101.1 N code = MCV) MEAN CELL HGB (test code 27.1 pg 25.3-35.3 N = MCH) MEAN CELL HGB 31.1 G/DL 32.7-35.1 L CONCETRATION (test code = MCHC) RED CELL DISTRIBUTION 15.6 % 12.2-16.4 N WIDTH (test code = RDW) RED CELL DISTRIBUTION 49.1 fL 35.1-43.9 H WIDTH (test code = RDW-SD) PLATELET COUNT (test 148 K/mm3 155-337 L code = PLT) MEAN PLATELET VOLUME 11.4 fL 7.6-10.4 H (test code = MPV) GRANULOCYTE % (test code 66.1 % 37.8-82.6 N = GR%) IMMATURE GRANULOCYTE % 10.3 % 0.0-2.0 H (test code = IG%) LYMPHOCYTE % (test code 17.8 % 14.1-45.4 N = LY%) MONOCYTE % (test code = 5.4 % 2.5-11.7 N MO%) EOSINOPHIL % (test code 0.3 % 0.0-6.2 N = EO%) BASOPHIL % (test code = 0.1 % 0.0-2.6 N BA%) NUCLEATED RBC % (test 1.5 /100WBC% 0.0-1.0 H code = NRBC%) GRANULOCYTE # (test code 6.27 k/mm3 2.0-13.7 N = GR#) IMMATURE GRANULOCYTE # 0.98 K/mm3 0.00-0.03 H (test code = IG#) LYMPHOCYTE # (test code 1.69 K/mm3 0.6-3.8 N = LY#) MONOCYTE # (test code = 0.51 K/mm3 0.11-0.59 N MO#) EOSINOPHIL # (test code 0.03 K/mm3 0.0-0.4 N = EO#) BASOPHIL # (test code = 0.01 K/mm3 0.0-0.1 N BA#) NUCLEATED RBC # (test 0.14 K/mm3 0.00-0.05 H code = NRBC#) MANUAL DIFF REQUIRED MAN DIFF INDICATED CRITERIA (test code = MDIFF) DIFF/SCN PENDING RECEIPT OF SPECIMEN PER B.LAB.AK AT 09/10/19 1314WBC DIFFERENTIAL 2019-09-10 15:49:00 Test Item Value Reference Range Interpretation Comments TOTAL CELLS COUNTED (test code = #CELLS >100 TCC) SEGMENTED NEUTROPHILS (test code = % 40-75 SEG) LYMPHOCYTE (test code = LYMPH) % 12.6-43.5 MORPHOLOGY COMMENT (test code = MOC) ON SCAN NORMAL RBCS PLATELET ESTIMATE (test code = ON SCAN ADEQUATE PLTEST) PENDING RECEIPT OF SPECIMEN PER B.LAB.AK AT 09/10/19 1314CBC W/MANUAL DIFF 2019-09-10 15:49:00 Test Item Value Reference Range Interpretation Comments WHITE BLOOD CELL (test 9.5 K/mm3 4.1-12.1 N code = WBC) RED BLOOD CELL (test 3.03 M/mm3 3.8-5.5 L code = RBC) HEMOGLOBIN (test code = 8.2 G/DL 10.6-15.8 L HGB) HEMATOCRIT (test code = 26.4 % 31.8-47.4 L HCT) MEAN CELL VOLUME (test 87.1 fL 80.1-101.1 N code = MCV) MEAN CELL HGB (test code 27.1 pg 25.3-35.3 N = MCH) MEAN CELL HGB 31.1 G/DL 32.7-35.1 L CONCETRATION (test code = MCHC) RED CELL DISTRIBUTION 15.6 % 12.2-16.4 N WIDTH (test code = RDW) RED CELL DISTRIBUTION 49.1 fL 35.1-43.9 H WIDTH (test code = RDW-SD) PLATELET COUNT (test 148 K/mm3 155-337 L code = PLT) MEAN PLATELET VOLUME 11.4 fL 7.6-10.4 H (test code = MPV) GRANULOCYTE % (test code 66.1 % 37.8-82.6 N = GR%) IMMATURE GRANULOCYTE % 10.3 % 0.0-2.0 H (test code = IG%) LYMPHOCYTE % (test code 17.8 % 14.1-45.4 N = LY%) MONOCYTE % (test code = 5.4 % 2.5-11.7 N MO%) EOSINOPHIL % (test code 0.3 % 0.0-6.2 N = EO%) BASOPHIL % (test code = 0.1 % 0.0-2.6 N BA%) NUCLEATED RBC % (test 1.5 /100WBC% 0.0-1.0 H code = NRBC%) GRANULOCYTE # (test code 6.27 k/mm3 2.0-13.7 N = GR#) IMMATURE GRANULOCYTE # 0.98 K/mm3 0.00-0.03 H (test code = IG#) LYMPHOCYTE # (test code 1.69 K/mm3 0.6-3.8 N = LY#) MONOCYTE # (test code = 0.51 K/mm3 0.11-0.59 N MO#) EOSINOPHIL # (test code 0.03 K/mm3 0.0-0.4 N = EO#) BASOPHIL # (test code = 0.01 K/mm3 0.0-0.1 N BA#) NUCLEATED RBC # (test 0.14 K/mm3 0.00-0.05 H code = NRBC#) MANUAL DIFF REQUIRED MAN DIFF INDICATED CRITERIA (test code = MDIFF) DIFF/SCN PENDING RECEIPT OF SPECIMEN PER B.LAB.AK AT 09/10/19 1314WBC DIFFERENTIAL 2019-09-10 15:49:00 Test Item Value Reference Range Interpretation Comments TOTAL CELLS COUNTED (test code = #CELLS >100 TCC) SEGMENTED NEUTROPHILS (test code = % 40-75 SEG) LYMPHOCYTE (test code = LYMPH) % 12.6-43.5 MORPHOLOGY COMMENT (test code = MOC) ON SCAN NORMAL RBCS PLATELET ESTIMATE (test code = ON SCAN ADEQUATE PLTEST) PENDING RECEIPT OF SPECIMEN PER B.LAB.AK AT 09/10/19 1314GLUCOSE BEDSIDE TESTING 2019-09-10 11:29:00 Test Item Value Reference Range Interpretation Comments GLUCOSE BEDSIDE 542 MG/DL 70-119 HH LOW/HIGH NATO RT VALUE - TESTING (test code ACTION RE QUIREDNotified = GLUBED) Nurse~ GLUCOSE BEDSIDE [id number] 07:28:00 Test Item Value Reference Range Interpretation Comments GLUCOSE BEDSIDE TESTING (test code 288 MG/DL 70-119 H = GLUBED) LACTIC DEHYDROGENASE(LDH)2019-09-10 05:20:00 Test Item Value Reference Range Interpretation Comments LACTIC DEHYDROGENASE(LDH) (test 454 Unit/L 84-246 H code = LDH) PT AND [id number] 04:53:00 Test Item Value Reference Interpretation Comments Range PT PATIENT (test 11.7 SECONDS 9.4-12.5 N code = PTP) INTERNATIONAL 1.02 INR 0.88-1.13 N NORMAL RATIO (test Unit --------- code = INR) ---------Therap eutic range for INR i s dependent upon the situation.2.0-3 .0 Prophylaxis / v enous thromboembolism , Treatment of DVT, Acute myocardia l infarction stro ke prevention, Systemic emboli sm prevention in fibrillation3.0 -4.5 AMI recurrence prev ention, Systemic emboli sm prevention in p rosthetic heart 3.0-5.4 A UT mortality reduc tion THROMBOPLASTIN TIME 28.6 SECONDS 24-37.7 N THERAPEU TIC RANGE FOR PARTIAL (test code UNFRACTIO NATED HEPARIN = = PTT) 50.5-83.6 SEC T his test is not recommen ded to monitor low molecularweight heparin or danaparoid. Order LMWH test COLLECTION THROUGH LINES THAT HAVE BEEN PREVIOUSLY FLUS HEDWITH HEPARIN SHOULD BE AVOIDED DUE TO POSSIBLE HEPARINCONTAMIN ATION Is this a LINE draw? NANTICOAGULANT THERAPY [Y,N]: [id number] 04:53:00 Test Item Value Reference Range Interpretation Comments FIBRINOGEN (test code = FIB) 153 mg/dL 192-485 L Is this a LINE draw? NANTICOAGULANT THERAPY [Y,N]: UNKRETICULOCYTE COUNT 2019-09-10 04:49:00 Test Item Value Reference Range Interpretation Comments RED BLOOD CELL (test code = RBC) 2.80 M/mm3 3.8-5.5 L RETIC COUNT (AUTOMATED) (test 3.59 % auto 0.63-2.24 H code = RETICA) RETICULOCYTE NUMBER (test code = 0.101 M/mm3 0.0324-0.1072 N RETN) IMMATURE RETICULOCYTE FRACTION 40.0 % 2.3-13.4 H (test code = IRF) [id number] 04:49:00 Test Item Value Reference Range Interpretation Comments HAPTOGLOBIN (test code = HAPT) GLUCOSE BEDSIDE [id number] 20:26:00 Test Item Value Reference Range Interpretation Comments GLUCOSE BEDSIDE 411 MG/DL 70-119 HH LOW/HIGH NATO RT VALUE - TESTING (test code ACTION RE QUIREDNotified = GLUBED) Nurse~ GLUCOSE BEDSIDE [id number] 16:06:00 Test Item Value Reference Range Interpretation Comments GLUCOSE BEDSIDE TESTING 253 MG/DL 70-119 H Noti fied Nurse~ (test code = GLUBED) ACUTE HEPATITIS [id number] 15:37:00 Test Item Value Reference Range Interpretation Comments AB HEPATITIS A IGM (test NonReactive SCREEN Nonreactive code = HAVMAB) AG HEPATITIS B SURFACE NEG-NONREAC SCREEN Nonreactive (test code = HBSAG) AB HEPATITIS B CORE IGM NonReactive SCREEN Nonreactive (test code = HBCMAB) AB HEPATITIS C (test code NR SCREEN Nonreactive = HCVAB) AB HIV 1 15:03:00 Test Item Value Reference Range Interpretation Comments AB HIV 1 2 NonReactive SREEN NR This i s a screening (test code = test only A [id number]) Non-Reactive te st result does not exclude the possibility of exposure to or infection with HIV. HIV antibodies and/orantigen m ay be undetectable in some stages of infection.Curre ntly available assay s for the detection o f p24 antigenand/or antibodies to H IV-1 and/or HIV-2 ma y not detect allinfec kailyn individuals. HIV-1/HIV-2 differentiation testing will be reflexedautomat ically per pathologist approved reflex protocols onall Reactive test r esults. VITAMIN [id number] 15:02:00 Test Item Value Reference Range Interpretation Comments VITAMIN B12 (test code = VITB12) 1999 PG/ML 183-986 H FOLIC [id number] 15:02:00 Test Item Value Reference Range Interpretation Comments FOLIC ACID (test code = FOL) 14.29 NG/ML 3.10-17.50 N SED [id number] 14:24:00 Test Item Value Reference Range Interpretation Comments SED RATE (test code = SEDW) 83 mm/hr 0-15 H FE W/TOTAL IRON BINDING CAP.2019-09-09 14:03:00 Test Item Value Reference Range Interpretation Comments SERUM IRON (test code = 72 mcG/DL 65-175 N IRON) TOTAL IRON BINDING 152 mcG/DL 250-450 L CAPACITY (test code = TIBC) IRON SATURATION (test 47 % calc 12-57 N code = FESAT) INDEX HEMOLYSIS (test 1 NORMAL <10 MG 1 NORMAL code = HEMINDEX) Index/DL INDEX ICTERIC (test code 1 NORMAL <2 MG 1 NORMAL = ICTINDEX) Index/DL INDEX LIPEMIA (test code 1 NORMAL <50 MG 1 NORMAL = LIPINDEX) Index/DL GLUCOSE BEDSIDE [id number] 11:34:00 Test Item Value Reference Range Interpretation Comments GLUCOSE BEDSIDE TESTING 164 MG/DL 70-119 H Noti fied Nurse~ (test code = GLUBED) GLUCOSE BEDSIDE [id number] 06:17:00 Test Item Value Reference Range Interpretation Comments GLUCOSE BEDSIDE TESTING (test code 144 MG/DL 70-119 H = GLUBED) CBC W/MANUAL [id number] 03:22:00 Test Item Value Reference Range Interpretation Comments WHITE BLOOD CELL (test 5.1 K/mm3 4.1-12.1 N code = WBC) RED BLOOD CELL (test 2.88 M/mm3 3.8-5.5 L code = RBC) HEMOGLOBIN (test code = 7.8 G/DL 10.6-15.8 L HGB) HEMATOCRIT (test code = 25.3 % 31.8-47.4 L HCT) MEAN CELL VOLUME (test 87.8 fL 80.1-101.1 N code = MCV) MEAN CELL HGB (test code 27.1 pg 25.3-35.3 N = MCH) MEAN CELL HGB 30.8 G/DL 32.7-35.1 L CONCETRATION (test code = MCHC) RED CELL DISTRIBUTION 15.5 % 12.2-16.4 N WIDTH (test code = RDW) RED CELL DISTRIBUTION 49.7 fL 35.1-43.9 H WIDTH (test code = RDW-SD) PLATELET COUNT (test 68 K/mm3 155-337 L code = PLT) MEAN PLATELET VOLUME 11.5 fL 7.6-10.4 H (test code = MPV) GRANULOCYTE % (test code 50.8 % 37.8-82.6 N = GR%) IMMATURE GRANULOCYTE % 9.8 % 0.0-2.0 H (test code = IG%) LYMPHOCYTE % (test code 32.3 % 14.1-45.4 N = LY%) MONOCYTE % (test code = 6.7 % 2.5-11.7 N MO%) EOSINOPHIL % (test code 0.2 % 0.0-6.2 N = EO%) BASOPHIL % (test code = 0.2 % 0.0-2.6 N BA%) NUCLEATED RBC % (test 1.4 /100WBC% 0.0-1.0 H code = NRBC%) GRANULOCYTE # (test code 2.60 k/mm3 2.0-13.7 N = GR#) IMMATURE GRANULOCYTE # 0.50 K/mm3 0.00-0.03 H (test code = IG#) LYMPHOCYTE # (test code 1.65 K/mm3 0.6-3.8 N = LY#) MONOCYTE # (test code = 0.34 K/mm3 0.11-0.59 N MO#) EOSINOPHIL # (test code 0.01 K/mm3 0.0-0.4 N = EO#) BASOPHIL # (test code = 0.01 K/mm3 0.0-0.1 N BA#) NUCLEATED RBC # (test 0.07 K/mm3 0.00-0.05 H code = NRBC#) MANUAL DIFF REQUIRED MAN DIFF INDICATED CRITERIA (test code = MDIFF) DIFF/SCN WBC [id number] 03:22:00 Test Item Value Reference Range Interpretation Comments TOTAL CELLS COUNTED (test 100 #CELLS >100 code = TCC) SEGMENTED NEUTROPHILS 88 % 40-75 H (test code = SEG) LYMPHOCYTE (test code = 8 % 12.6-43.5 L LYMPH) MONOCYTE (test code = MON) 1 % 4.2-12.7 L METAMYELOCYTE (test code = 1 % 0-2 N META) MYELOCYTE (test code = 2 % 0-1 H MYELO) NUCLEATED RED BLOOD CELL 3.00 #/100WBC 0-0.5 H (test code = NRBC) POLYCHROMASIA (test code = SLIGHT ON SCAN NONE POLC) HYPOCHROMIA (test code = MOD ON SCAN NONE A HYPO) BASOPHILIC STIPPLING (test RARE ON SCAN NONE code = STP) PLATELET ESTIMATE (test MOD DECR ON SCAN ADEQUATE A code = PLTEST) PLATELET MORPHOLOGY (test LARGE FEW ON SCAN NORMAL PLTS code = PLTMORPH) PLATELET MORPHOLOGY (test GIANT RARE ON SCAN NORMAL PLTS code = [id number]) CALCIUM [id number] 02:21:00 Test Item Value Reference Range Interpretation Comments CALCIUM IONIZED (test code = DEBBI) 1.05 mmol/L 1.13-1.32 L MALARIA ANTIGEN [id number] 02:11:00 Test Item Value Reference Range Interpretation Comments PATHOLOGIST'S REVIEW NOT COMMENTS FINDINGS (test INDICATED code = PATH) EXTERNAL MALARIAL SMEAR NOT 4 SMEARS THICK/THIN SMEAR INDICATED (test code = EXAMINED ANNA) AG FALCIPARUM POSITIVE SCREEN NEGATIVE A IFC NOTIFIE D :ON PLASMODIUM (test 09/09/19 AT 0211, code = PLAEMELYG) B.LAB.MEBPA [facility] NOTIFIED OF INFECTIOUS [id number] by: B.LAB.MEB NOTIFIED: [] AG VIVAX OVALE POSITIVE SCREEN NEGATIVE A IFC NOTIFI ED :ON MALARIA (test 09/09/19 AT 02 04, code = VIVAXMAL) B.LAB.MEBPA [facility] ST[facility] NOTIFIED OF INFECTIOUS [id number] by: STEVEN.ME NOTIFIED: DARNELL PEREZ.A PRESUMPTIVE NEG ATIVE result for an a ntigen test indicatest hat infection with that species cannot be ruled out.The m alaria antigen in the sample may be below th e detectionlimit of the test.A PRESUMPT DEISI NEGATIVE result on both tests shal l beconfirmed by thick/thin smea r microscopy. A POSITIVE result for both Falciparum antigen andVivax/Ovale antigen indicat es the presence of the P.falciparum an tigen or possibly a m ixed infection of Pfalciparum wit h P.vivax or P.ov nato protein antigen . This test is not int ended for use in scre ening asymptomaticpop ulatio ns. Samples wit h positive rheuma toid factor (Rf) tit ersmay produce false positive result s in this test.Rheum atoid factors are auto-antibodies , andpositive Rf titers are associated with acute autoimmunedisor ders, such as rheumat oid arthritis, as w ell as withchronic vir al infectious (suc h as hepatitis C) andparasitic infections. Specimen comments: XXURINALYSIS [id number] 01:44:00 Test Item Value Reference Range Interpretation Comments UA COLOR (test code = YELLOW DESCRIPT YELLOW COLU) UA APPEARANCE (test code CLEAR DESCRIPT CLEAR = APPU) UA GLUCOSE DIPSTICK (test 150 (2+) mg/dL (NEG) 0 A code = DGLUU) UA BILIRUBIN DIPSTICK NEGATIVE (0) mg/dL (NEG) 0 (test code = BILU) UA KETONE DIPSTICK (test 0 (NEG) mg/dL (NEG) 0 code = KETU) UA SPECIFIC GRAVITY (test 1.021 SG 1.001-1.035 code = SGU) UA BLOOD DIPSTICK (test NEGATIVE (0) mg/DL (NEG) 0 code = KACY) UA PH DIPSTICK (test code 6.0 pH UNITS 4.6-8.0 = SIS) UA PROTEIN DIPSTICK (test 30 (1+) mg/dL <30 (1+) A code = PROU) UA UROBILINIOGEN DIPSTICK 4 mg/dL <2.0 (1+) A (test code = URO) UA NITRITE DIPSTICK (test NEGATIVE (0) SCREEN NEG code = SHWETA) UA LEUKOCYTE ESTERASE NEGATIVE (0) (NEG) 0 DIPSTICK (test code = Leuk/mcL LEUU) UA WBC (test code = WBCU) 0-3 #WBC/HPF 0-3 UA RBC (test code = RBCU) 0-3 #RBC/HPF 0-3 COMPREHENSIVE METABOLIC [id number] 01:42:00 Test Item Value Reference Range Interpretation Comments SODIUM (test code = 137.0 mmol/L 133-144 N NA) POTASSIUM (test code 3.3 mmol/L 3.5-5.1 L = K) CHLORIDE (test code 104 mmol/L 95-105 N = CL) CARBON DIOXIDE (test 31 mmol/L 21-32 N code = CO2) ANION GAP (test code 2.0 GAP calc 4.0-15.0 L = GAP) GLUCOSE (test code = 121 MG/DL 70-110 H GLU) BLOOD UREA NITROGEN 24 MG/DL 7-18 H (test code = BUN) GLOMERULAR 132 estGFR >60 The estimated FILTRATION RATE glomerular (test code = GFR) filtration rate is computed usingpatient ra ce, age, sex, and s yoli creatinine. If any of theneeded da ta elements are mi ssing the Laboratory can notcompute an estimation of t he glomerular filtration rate .The GFR value units = ml/min/1.73 met er squared. EstimatedGFR va lues above 60 should be interpreted as >60, not anexact number.--- DRUG DOSAGE ALERT -- - Drug dosage adjustments uti lize different calculationpara meter s. CREATININE (test 0.78 MG/DL 0.55-1.30 N Results may be code = CREAT) depressed if p atient is takingN-Acetylc ystei ne (NAC) and Metamizole (Dipyrone). TOTAL PROTEIN (test 5.8 G/DL 6.4-8.2 L code = PROT) ALBUMIN (test code = 1.6 G/DL 3.4-5.0 L ALB) ALBUMIN/GLOBULIN 0.4 RATIO 1.2-2.2 L RATIO (test code = A/G) CALCIUM (test code = 6.6 MG/DL 8.5-10.1 LL ON 08/27 03/15 AT 0137, [place]) B.LAB.AR CALLED TO GRISELDA BARILLAS . The report was confirmed by re ad back protocols Y,N:Y . BILIRUBIN TOTAL 0.44 MG/DL 0.00-1.00 N (test code = BILT) BILIRUBIN DIRECT 0.19 MG/DL 0.00-0.30 N (test code = BILD) BILIRUBIN INDIRECT 0.25 MG/DL 0.2-1.3 N (test code = BILIND) SGOT/AST (test code 22 Unit/L 15-37 N = AST) SGPT/ALT (test code 24 Unit/L 12-78 N = ALT) ALKALINE PHOSPHATASE 54 Unit/L 45-117 N TOTAL (test code = ALKP) INDEX HEMOLYSIS 1 NORMAL <10 1 NORMAL (test code = MG Index/DL HEMINDEX) INDEX ICTERIC (test 1 NORMAL <2 MG 1 NORMAL code = ICTINDEX) Index/DL INDEX LIPEMIA (test 2 TRACE 1 NORMAL code = LIPINDEX) 50-100 MG Index/DL URINALYSIS [id number] 01:40:00 Test Item Value Reference Range Interpretation Comments UA COLOR (test code = YELLOW DESCRIPT YELLOW COLU) UA APPEARANCE (test code CLEAR DESCRIPT CLEAR = APPU) UA GLUCOSE DIPSTICK (test 150 (2+) mg/dL (NEG) 0 A code = DGLUU) UA BILIRUBIN DIPSTICK NEGATIVE (0) mg/dL (NEG) 0 (test code = BILU) UA KETONE DIPSTICK (test 0 (NEG) mg/dL (NEG) 0 code = KETU) UA SPECIFIC GRAVITY (test 1.021 SG 1.001-1.035 code = SGU) UA BLOOD DIPSTICK (test NEGATIVE (0) mg/DL (NEG) 0 code = KACY) UA PH DIPSTICK (test code 6.0 pH UNITS 4.6-8.0 = SIS) UA PROTEIN DIPSTICK (test 30 (1+) mg/dL <30 (1+) A code = PROU) UA UROBILINIOGEN DIPSTICK 4 mg/dL <2.0 (1+) A (test code = URO) UA NITRITE DIPSTICK (test NEGATIVE (0) SCREEN NEG code = SHWETA) UA LEUKOCYTE ESTERASE NEGATIVE (0) (NEG) 0 DIPSTICK (test code = Leuk/mcL LEUU) UA RBC (test code = RBCU) #RBC/HPF 0-3 PT AND [id number] 01:39:00 Test Item Value Reference Interpretation Comments Range PT PATIENT (test 11.9 SECONDS 9.4-12.5 N code = PTP) INTERNATIONAL 1.03 INR 0.88-1.13 N NORMAL RATIO (test Unit --------- code = INR) ---------Therap eutic range for INR i s dependent upon the situation.2.0-3 .0 Prophylaxis / v enous thromboembolism , Treatment of DVT, Acute myocardia l infarction stro ke prevention, Systemic emboli sm prevention in fibrillation3.0 -4.5 AMI recurrence prev ention, Systemic emboli sm prevention in p rosthetic heart 3.0-5.4 A UT mortality reduc tion THROMBOPLASTIN TIME 28.0 SECONDS 24-37.7 N THERAPEU TIC RANGE FOR PARTIAL (test code UNFRACTIO NATED HEPARIN = = PTT) 50.5-83.6 SEC T his test is not recommen ded to monitor low molecularweight heparin or danaparoid. Order LMWH test COLLECTION THROUGH LINES THAT HAVE BEEN PREVIOUSLY FLUS HEDWITH HEPARIN SHOULD BE AVOIDED DUE TO POSSIBLE HEPARINCONTAMIN ATION CBC W/MANUAL [id number] 01:20:00 Test Item Value Reference Range Interpretation Comments WHITE BLOOD CELL (test 5.1 K/mm3 4.1-12.1 N code = WBC) RED BLOOD CELL (test 2.88 M/mm3 3.8-5.5 L code = RBC) HEMOGLOBIN (test code = 7.8 G/DL 10.6-15.8 L HGB) HEMATOCRIT (test code = 25.3 % 31.8-47.4 L HCT) MEAN CELL VOLUME (test 87.8 fL 80.1-101.1 N code = MCV) MEAN CELL HGB (test code 27.1 pg 25.3-35.3 N = MCH) MEAN CELL HGB 30.8 G/DL 32.7-35.1 L CONCETRATION (test code = MCHC) RED CELL DISTRIBUTION 15.5 % 12.2-16.4 N WIDTH (test code = RDW) RED CELL DISTRIBUTION 49.7 fL 35.1-43.9 H WIDTH (test code = RDW-SD) PLATELET COUNT (test 68 K/mm3 155-337 L code = PLT) MEAN PLATELET VOLUME 11.5 fL 7.6-10.4 H (test code = MPV) GRANULOCYTE % (test code 50.8 % 37.8-82.6 N = GR%) IMMATURE GRANULOCYTE % 9.8 % 0.0-2.0 H (test code = IG%) LYMPHOCYTE % (test code 32.3 % 14.1-45.4 N = LY%) MONOCYTE % (test code = 6.7 % 2.5-11.7 N MO%) EOSINOPHIL % (test code 0.2 % 0.0-6.2 N = EO%) BASOPHIL % (test code = 0.2 % 0.0-2.6 N BA%) NUCLEATED RBC % (test 1.4 /100WBC% 0.0-1.0 H code = NRBC%) GRANULOCYTE # (test code 2.60 k/mm3 2.0-13.7 N = GR#) IMMATURE GRANULOCYTE # 0.50 K/mm3 0.00-0.03 H (test code = IG#) LYMPHOCYTE # (test code 1.65 K/mm3 0.6-3.8 N = LY#) MONOCYTE # (test code = 0.34 K/mm3 0.11-0.59 N MO#) EOSINOPHIL # (test code 0.01 K/mm3 0.0-0.4 N = EO#) BASOPHIL # (test code = 0.01 K/mm3 0.0-0.1 N BA#) NUCLEATED RBC # (test 0.07 K/mm3 0.00-0.05 H code = NRBC#) MANUAL DIFF REQUIRED MAN DIFF INDICATED CRITERIA (test code = MDIFF) DIFF/SCN WBC [id number] 01:20:00 Test Item Value Reference Range Interpretation Comments TOTAL CELLS COUNTED (test code = #CELLS >100 TCC) SEGMENTED NEUTROPHILS (test code = % 40-75 SEG) LYMPHOCYTE (test code = LYMPH) % 12.6-43.5 MORPHOLOGY COMMENT (test code = MOC) ON SCAN NORMAL RBCS PLATELET ESTIMATE (test code = ON SCAN ADEQUATE PLTEST) CBC W/MANUAL [id number] 01:20:00 Test Item Value Reference Range Interpretation Comments WHITE BLOOD CELL (test 5.1 K/mm3 4.1-12.1 N code = WBC) RED BLOOD CELL (test 2.88 M/mm3 3.8-5.5 L code = RBC) HEMOGLOBIN (test code = 7.8 G/DL 10.6-15.8 L HGB) HEMATOCRIT (test code = 25.3 % 31.8-47.4 L HCT) MEAN CELL VOLUME (test 87.8 fL 80.1-101.1 N code = MCV) MEAN CELL HGB (test code 27.1 pg 25.3-35.3 N = MCH) MEAN CELL HGB 30.8 G/DL 32.7-35.1 L CONCETRATION (test code = MCHC) RED CELL DISTRIBUTION 15.5 % 12.2-16.4 N WIDTH (test code = RDW) RED CELL DISTRIBUTION 49.7 fL 35.1-43.9 H WIDTH (test code = RDW-SD) PLATELET COUNT (test 68 K/mm3 155-337 L code = PLT) MEAN PLATELET VOLUME 11.5 fL 7.6-10.4 H (test code = MPV) GRANULOCYTE % (test code 50.8 % 37.8-82.6 N = GR%) IMMATURE GRANULOCYTE % 9.8 % 0.0-2.0 H (test code = IG%) LYMPHOCYTE % (test code 32.3 % 14.1-45.4 N = LY%) MONOCYTE % (test code = 6.7 % 2.5-11.7 N MO%) EOSINOPHIL % (test code 0.2 % 0.0-6.2 N = EO%) BASOPHIL % (test code = 0.2 % 0.0-2.6 N BA%) NUCLEATED RBC % (test 1.4 /100WBC% 0.0-1.0 H code = NRBC%) GRANULOCYTE # (test code 2.60 k/mm3 2.0-13.7 N = GR#) IMMATURE GRANULOCYTE # 0.50 K/mm3 0.00-0.03 H (test code = IG#) LYMPHOCYTE # (test code 1.65 K/mm3 0.6-3.8 N = LY#) MONOCYTE # (test code = 0.34 K/mm3 0.11-0.59 N MO#) EOSINOPHIL # (test code 0.01 K/mm3 0.0-0.4 N = EO#) BASOPHIL # (test code = 0.01 K/mm3 0.0-0.1 N BA#) NUCLEATED RBC # (test 0.07 K/mm3 0.00-0.05 H code = NRBC#) MANUAL DIFF REQUIRED MAN DIFF INDICATED CRITERIA (test code = MDIFF) DIFF/SCN WBC [id number] 01:20:00 Test Item Value Reference Range Interpretation Comments TOTAL CELLS COUNTED (test code = #CELLS >100 TCC) SEGMENTED NEUTROPHILS (test code = % 40-75 SEG) LYMPHOCYTE (test code = LYMPH) % 12.6-43.5 MORPHOLOGY COMMENT (test code = MOC) ON SCAN NORMAL RBCS PLATELET ESTIMATE (test code = ON SCAN ADEQUATE PLTEST) GLUCOSE BEDSIDE [id number] 23:33:00 Test Item Value Reference Range Interpretation Comments GLUCOSE BEDSIDE TESTING (test code 123 MG/DL 70-119 H = GLUBED) Glucose (Fingerstick)2019-09-08 19:42:00 Test Item Value Reference Range Interpretation Comments Glucose (Fingerstick) (test code = 332 65-99 86786-0) [facility] [id number] 17:15:00 Test Item Value Reference Range Interpretation Comments Lactic Acid Level (test code = 2524-7) 2.6 0.5-2.0 Critical Result S_LAC:2.6 Called to and read back by: SEVERIANO MUKHERJEE RN at: 09/08/2019 17:57:17 by:ENRIQUETA CARRANZABellville [facility] CenterWhite Blood [id number] 05:58:00 Test Item Value Reference Range Interpretation Comments White Blood Count (test code = 6690-2) 4.1 3.9-11.8 [facility] [id number] 05:58:00 Test Item Value Reference Range Interpretation Comments Red Blood Count (test code = 789-8) 3.44 4.18-5.86 [facility]Hemoglobin2019-10-13 05:58:00 Test Item Value Reference Range Interpretation Comments Hemoglobin (test code = 718-7) 9.6 13.1-17.5 [facility]Hematocrit2019-10-13 05:58:00 Test Item Value Reference Range Interpretation Comments Hematocrit (test code = 93171-5) 28.8 38.7-51.4 [facility] Corpuscular [id number] 05:58:00 Test Item Value Reference Range Interpretation Comments Mean Corpuscular Volume (test code = 83.7 79.8-99.1 79049-6) [facility] Corpuscular [id number] 05:58:00 Test Item Value Reference Range Interpretation Comments Mean Corpuscular Hemoglobin (test code 27.9 26.3-34.0 = 83716-0) [facility] Corpuscular Hgb Concent [id number] 05:58:00 Test Item Value Reference Range Interpretation Comments Mean Corpuscular Hgb Concent Diff (test 33.3 32.0-36.0 code = 84975-2) [facility]Red Cell Distribution [id number] 05:58:00 Test Item Value Reference Range Interpretation Comments Red Cell Distribution Width (test code 16.7 11.4-14.5 = 52252-9) [facility] HospitalPlatelet [id number] 05:58:00 Test Item Value Reference Range Interpretation Comments Platelet Count (test code = 777-3) 37 152-386 [facility] Platelet [id number] 05:58:00 Test Item Value Reference Range Interpretation Comments Mean Platelet Volume (test code = 10.2 6.8-10.1 85866-4) [facility] HospitalGranulocytes (%)2019-09-08 05:58:00 Test Item Value Reference Range Interpretation Comments Granulocytes (%) (test code = 02979-6) 71.5 37.8-74.6 [facility] HospitalLymphocytes %2019-09-08 05:58:00 Test Item Value Reference Range Interpretation Comments Lymphocytes % (test code = 736-9) 20.0 16.1-47.9 [facility] HospitalMonocytes %2019-09-08 05:58:00 Test Item Value Reference Range Interpretation Comments Monocytes % (test code = 5905-5) 8.1 4.4-13.5 [facility]2019-[facility]-08 05:58:00 Test Item Value Reference Range Interpretation Comments Eosinophils % (test code = 713-8) 0.0 0.7-8.5 [facility]Basophils %2019-09-08 05:58:00 Test Item Value Reference Range Interpretation Comments Basophils % (test code = 15855-0) 0.4 0.0-2.0 [facility] HospitalGranulocytes #2019-09-08 05:58:00 Test Item Value Reference Range Interpretation Comments Granulocytes # (test code = 07702-8) 3.0 1.5-8.8 [facility] HospitalLymphocytes #2019-09-08 05:58:00 Test Item Value Reference Range Interpretation Comments Lymphocytes # (test code = 40668-6) 0.8 0.6-5.7 [facility] HospitalMonocytes #2019-09-08 05:58:00 Test Item Value Reference Range Interpretation Comments Monocytes # (test code = 742-7) 0.3 0.2-1.6 [facility] HospitalEosinophils #2019-09-08 05:58:00 Test Item Value Reference Range Interpretation Comments Eosinophils # (test code = 711-2) 0.0 0.0-1.0 [facility] HospitalBasophils #2019-09-08 05:58:00 Test Item Value Reference Range Interpretation Comments Basophils # (test code = 95765-3) 0.0 0.0-0.2 [facility] HospitalManual Djgiqefwtzty4914-66-28 05:58:00 Test Item Value Reference Range Interpretation Comments Manual Differential (test code = Manual NO Differential) [facility] HospitalN/M1265-10-16 05:58:00 Test Item Value Reference Range Interpretation Comments N/A (test code = N/A) CALCULATE BELOW CORONARY HEART DISEASE (CHD) RISK FACTORS: +1, Age(y): Men, >45 Women, >55 or Premature Menopause Without Estrogen Therapy +1, Family History of Premature CHD +1, CurrentCigarette Smoking +1, Hypertension +1, Low HDL-C: <40 mg/dL -1, High HDL-C: 60 mg/dL or More Total RFs CHD Risk Equivalents (REq): Diabetes Other Forms of Atherosclerotic Disease Lipid testing of hospitalized patients may be inaccurate dueto fluctuations from the patients normal metabolic state. Accurate triglyceride and LDL testing requires a fastingspecimen. If non-fasting cholesterol > or = 200 mg/dL orHDL is < 40 mg/dL, fasting lipid panel is recommended.Repeat testing recommended prior to treatment. Desirable LevelsMemorial [facility]ann [facility] HospitalCholesterol Rsxpp4173-66-56 05:58:00 Test Item Value Reference Range Interpretation Comments Cholesterol Level (test code = 2093-3) 131 0-200 [facility] HospitalTriglycerides Unukx3460-79-35 05:58:00 Test Item Value Reference Range Interpretation Comments Triglycerides Level (test code = 895 10150 2571-8) Normal triglycerides: <150 mg/dLBorderline-high triglycerides: 150-199 mg/dLHigh triglycerides: 200-499 mg/dLVery high triglycerides: > or = 500 mg/dLMemorial Hermann Sugar [facility] HospitalHDL Kllzuxwrdjr5356-63-16 05:58:00 Test Item Value Reference Range Interpretation Comments HDL Cholesterol (test code = 2085-9) < 5.0 40-130 [facility] HospitalN/S7856-13-69 05:58:00 Test Item Value Reference Range Interpretation Comments N/A (test code = 81549-4) 26.0 0.0-5.0 [facility] HospitalLDL Cholesterol (Measured)2019-09-08 05:58:00 Test Item Value Reference Range Interpretation Comments LDL Cholesterol (Measured) (test code = 13 0-130 31068-8) *LDL Cholesterol <130 mg/dL, No CHD or CHD Risk Equivalent <100 mg/dL, With CHD or CHD Risk Equivalent LDL Cholesterol Therapeutic Goal:100 mg/dL or Less if CHD or CHD Risk Equivalent Present<130 mg/dL if No CHD or REq; 2 or more Risk Factors<160 mg/dL if No CHD or REq; 0-1 Risk Factors Reference: ATP III, ROYER, 285:19, 5666-48, 2000.[facility] Centerodium Nsacw3131-97-37 05:58:00 Test Item Value Reference Range Interpretation Comments Sodium Level (test code = 2951-2) 130 135-144 [facility] HospitalPotassium Piiug9556-65-55 05:58:00 Test Item Value Reference Range Interpretation Comments Potassium Level (test code = 2823-3) 4.3 3.5-5.1 [facility] HospitalChloride Umynr2564-94-04 05:58:00 Test Item Value Reference Range Interpretation Comments Chloride Level (test code = 2075-0) 95 101-111 [facility] HospitalCarbon Dioxide Xfkus4536-68-44 05:58:00 Test Item Value Reference Range Interpretation Comments Carbon Dioxide Level (test code = 29 22-32 8-9) [facility] HospitalAnion Adz8619-80-67 05:58:00 Test Item Value Reference Range Interpretation Comments Anion Gap (test code = 45228-2) 10.3 10-20 [facility] HospitalGlucose Zurek0396-13-34 05:58:00 Test Item Value Reference Range Interpretation Comments Glucose Level (test code = 2345-7) 558 65-99 Critical Result [id number] Called to and read back by: LENIN WARD at: 09/08/2019 07:41:44 by:SHARI GREENE Prediabetes 100 to 125 mg/dlDiabetes 126 mg/dl or higher Prediabetes refers to individuals with plasmaglucose levelsintermediate between those considered normal and thoseconsidered diabetic and is also referred to as impairedglucose tolerance (IGT) or impaired fasting glucose (IFG). [facility] HospitalBlood Urea Azsqssrl5518-14-48 05:58:00 Test Item Value Reference Range Interpretation Comments Blood Urea Nitrogen (test code = 46 8-26 3094-0) [facility] HospitalCreatinine2019-10-13 05:58:00 Test Item Value Reference Range Interpretation Comments Creatinine (test code = 2160-0) 1.1 0.61-1.24 [facility] HospitalEGFR Dpwg4099-13-31 05:58:00 Test Item Value Reference Range Interpretation Comments EGFR Note (test code = 67861-0) 103.3 59.3-175.8 eGFR (Estimated Glomerular Filtration Rate) eGFR calculation value obtained using the [facility] Children'S HospitalQuadratic (Q) equation. The reportable reference range isrecommended to be greater than 60 ml/min/1.73m. This is anestimation of the patient's GFR and clinical correlation isrecommended. This eGFR calculation does not account for race. This resultmay differ from other equations available. [facility] HospitalCalcium Ncolj9534-63-59 05:58:00 Test Item Value Reference Range Interpretation Comments Calcium Level (test code = 03880-9) 7.4 8.9-10.3 [facility] HospitalAlbumin2019-10-13 05:58:00 Test Item Value Reference Range Interpretation Comments Albumin (test code = 1751-7) 2.1 3.5-5.0 [facility] HospitalTotal Otdzfghzg4886-63-81 05:58:00 Test Item Value Reference Range Interpretation Comments Total Bilirubin (test code = 1975-2) 1.2 0.2-1.2 [facility] HospitalAlkaline Kmmnvvpdxpt3613-99-15 05:58:00 Test Item Value Reference Range Interpretation Comments Alkaline Phosphatase (test code = 53 32-91 6768-6) [facility] Wdpelxd3602-83-72 05:58:00 Test Item Value Reference Range Interpretation Comments Total Protein (test code = 2885-2) 5.3 6.5-8.1 [facility] HospitalAlanine Aminotransferase (ALT/SGPT)2019-09-08 05:58:00 Test Item Value Reference Range Interpretation Comments Alanine Aminotransferase (ALT/SGPT) 23 7-55 (test code = 1742-6) [facility] HospitalAspartate Amino Transf (AST/SGOT)2019-09-08 05:58:00 Test Item Value Reference Range Interpretation Comments Aspartate Amino Transf (AST/SGOT) (test 18 15-41 code = 1920-8) [facility] HospitalGlobulin2019-10-13 05:58:00 Test Item Value Reference Range Interpretation Comments Globulin (test code = 04223-1) 3.2 2.3-3.5 [facility] HospitalAlbumin/Globulin Yvhtr1261-59-48 05:58:00 Test Item Value Reference Range Interpretation Comments Albumin/Globulin Ratio (test code = 0.7 1.2-2.2 1759-0) [facility] A IgM Tibhmbof5489-85-66 05:58:00 Test Item Value Reference Range Interpretation Comments Hepatitis A IgM Antibody (test NONREACTIVE NONREACTIVE code = 41185-3) [facility] B Surface Boyxjdf1549-62-70 05:58:00 Test Item Value Reference Range Interpretation Comments Hepatitis B Surface Antigen (test NONREACTIVE NONREACTIVE code = 5196-1) [facility] B Core IgM Rhmmizmm7879-81-30 05:58:00 Test Item Value Reference Range Interpretation Comments Hepatitis B Core IgM Antibody NONREACTIVE NONREACTIVE (test code = 5185-4) [facility] C Zvymlsar4105-63-52 05:58:00 Test Item Value Reference Range Interpretation Comments Hepatitis C Antibody (test code = NONREACTIVE NONREACTIVE 60744-9) [facility] HospitalHemoglobin A1c Ffbddsi0789-18-31 00:00:00 Test Item Value Reference Range Interpretation Comments Hemoglobin A1c Percent (test code = 12.30 4.0-5.6 4548-4) Prediabetes 5.7% to 6.4%Diabetes 6.5% or higher Elevated levels of HbA1c suggest the need for moreaggressive treatmentof glycemia. The [place] DiabetesAssociation recommends that a primary goal of therapy shouldbe a HbA1c of <7% and that physicians should reevaluate thetreatment regimen in patients with HbA1c values consistently>8%. [facility]/[id number] 00:00:00 Test Item Value Reference Range Interpretation Comments N/A (test code = 18253-1) 307 A1C Result% Estimated Avg.Glucose (EAG) 6.0% 126 mg/dL 6.5% 140 mg/dL 7.0% 154 mg/dL 7.5% 169 mg/dL 8.0% 183 mg/dL 8.5% 197 mg/dL 9.0% 212 mg/dL 9.5% 226 mg/dL 10.0% 240 mg/dL Reference: kenneth Brown, Diabetes Care 31: 1437, 2008.[facility] Srqly1574-01-91 23:50:00 Test Item Value Reference Range Interpretation Comments Urine Color (test code = 85980-2) Yellow YELLOW [facility] Wiephcf1812-72-66 23:50:00 Test Item Value Reference Range Interpretation Comments Urine Clarity (test code = 39083-7) Clear CLEAR [facility] Piqyswq3202-00-51 23:50:00 Test Item Value Reference Range Interpretation Comments Urine Glucose (test code = 5792-7) >=500 NEGATIVE [facility] Abisdohlt9230-57-53 23:50:00 Test Item Value Reference Range Interpretation Comments Urine Bilirubin (test code = 5770-3) NEGATIVE NEGATIVE [facility] Tovdlnq0037-94-10 23:50:00 Test Item Value Reference Range Interpretation Comments Urine Ketones (test code = 5797-6) 5 NEGATIVE [facility] Specific Pnjksuf3927-96-67 23:50:00 Test Item Value Reference Range Interpretation Comments Urine Specific [place] (test code = 1.017 1.002-1.030 5811-5) [facility] Lzany8644-13-94 23:50:00 Test Item Value Reference Range Interpretation Comments Urine Blood (test code = 02469-6) SMALL NEGATIVE [facility] wL4505-53-69 23:50:00 Test Item Value Reference Range Interpretation Comments Urine pH (test code = 5803-2) 6 5.0-8.0 [facility] Mwnynbo0818-67-36 23:50:00 Test Item Value Reference Range Interpretation Comments Urine Protein (test code = 5804-0) NEGATIVE NEGATIVE [facility] Xwsxhjsuwwbq2445-22-88 23:50:00 Test Item Value Reference Range Interpretation Comments Urine Urobilinogen (test code = 4.0 NEGATIVE 73924-7) [facility] Ubytztf2623-19-93 23:50:00 Test Item Value Reference Range Interpretation Comments Urine Nitrite (test code = 5802-4) NEGATIVE NEGATIVE [facility] Leukocyte Lgjubeap8638-13-49 23:50:00 Test Item Value Reference Range Interpretation Comments Urine Leukocyte Esterase (test code NEGATIVE NEGATIVE = 36832-8) [facility] [id number] 23:50:00 Test Item Value Reference Range Interpretation Comments Urine RBC (test code = 79349-7) 0-2 0-2 [facility] MOS3766-17-09 23:50:00 Test Item Value Reference Range Interpretation Comments Urine WBC (test code = 78682-6) 0-2 0-5 [facility] Vaahysdm0781-98-64 23:50:00 Test Item Value Reference Range Interpretation Comments Urine Bacteria (test code = 42497-8) RARE NEGATIVE [facility] HospitalBlood Fxxkilj2983-81-10 23:50:00 Test Item Value Reference Range Interpretation Comments Blood Culture (test code NO GROWTH AT 5 DAYS. = Blood Culture) [facility] Centeregmented Ooatpwxyqiy7218-21-17 22:20:00 Test Item Value Reference Range Interpretation Comments Segmented Neutrophils (test code = 84 42-75 60546-7) [facility] HospitalImrfoqzwCeehksdrxse5791-80-02 22:20:00 Test Item Value Reference Range Interpretation Comments Lymphocytes (test code = 42713-0) 10 20-51 [facility] HospitalMonocytes2019-10-12 22:20:00 Test Item Value Reference Range Interpretation Comments Monocytes (test code = 64196-5) 6 2-9 [facility] HospitalPlatelet Bsaqoayb1247-97-98 22:20:00 Test Item Value Reference Range Interpretation Comments Platelet Estimate (test code = DECREASED ADEQUATE 41294-8) [facility] HospitalPlatelet Kiqmkbasjm8281-79-55 22:20:00 Test Item Value Reference Range Interpretation Comments Platelet Morphology LARGE PLATELETS SEEN NORMAL (test code = 94535-4) [facility] HospitalNormal RBC Xwjganczpb7342-73-33 22:20:00 Test Item Value Reference Range Interpretation Comments Normal RBC Morphology (test code = NORMAL NORMAL 05082-8) [facility] HospitalBlood Smear Pathologist Qvcvjc4302-80-33 22:20:00 Test Item Value Reference Range Interpretation Comments Blood Smear Pathologist Review (test POSITIVE code = 16284-3) [facility] HospitalMalaria Senty0916-84-65 22:20:00 Test Item Value Reference Range Interpretation Comments Malaria Smear (test code = 6670-4) POSITIVE NEGATIVE ALERT (CRITICAL) VALUE -CALLED RESULTS TO AND VERBAL READ BACK FROMKITA TABOR RN @ [id number] 09/08/19 LAB.Inna to reference lab for confirmation. [facility] HospitalProthrombin Fyej0762-49-33 22:20:00 Test Item Value Reference Range Interpretation Comments Prothrombin Time (test code = 5964-2) 12.2 10.0-12.9 [facility] HospitalINR International Normalized Kpsux5745-97-40 22:20:00 Test Item Value Reference Range Interpretation Comments INR International Normalized Ratio 1.1 0.91-1.15 (test code = 6301-6) THE INR IS TO BE USED ONLY FOR MONITORING ORAL ANTICOAGULANTTHERAPY. INDICATION INR VALUE 1. Prophylaxis of venous thrombosis 2.0-3.0 (high-risk surgery) Treatment of venous thrombosis Treatment of PE Prevention of systemic embolism Tissue heart valves AMI (to prevent systemic embolism) Valvular heart disease Atrial fibrillation Bileaflet mechanical valve in aortic position 2. Mechanical prosthetic heart valves (high risk) 2.5-3.5 Thrombosis and Antiphospholipid syndrome Prevention of recurrent [place] Sixth ACCP Consensus Conference on Antithrombotic Therapy,Chest 2001; 119:Supplement 8-21.[facility] HospitalActivated Partial Thromboplast Kuyr8358-53-13 22:20:00 Test Item Value Reference Range Interpretation Comments Activated Partial Thromboplast Time 26.2 25.1-36.5 (test code = 3173-2) [facility] HospitalMagnesium Pykxy5432-06-17 22:20:00 Test Item Value Reference Range Interpretation Comments Magnesium Level (test code = 38355-9) 2.6 1.8-2.5 [facility] HospitalCreatine Tvclro9525-67-92 22:20:00 Test Item Value Reference Range Interpretation Comments Creatine Kinase (test code = 2157-6) 130 49-397 [facility] HospitalCreatine Kinase PZ1279-39-63 22:20:00 Test Item Value Reference Range Interpretation Comments Creatine Kinase MB (test code = 0.76 0.6-6.3 86573-8) [facility] HospitalTroponin [id number] 22:20:00 Test Item Value Reference Range Interpretation Comments Troponin I (test code = 37088-5) 0.02 0.00-0.03 Troponin I-Interpretation Reference : <0.03 ng/mL NEGATIVE 0.04 - 0.49 ng/mL EQUIVOCAL =OR > 0.5 ng/mL CONSISTENT WITH ACUTE MYOCARDIAL INJURY 98% of confirmed AMI patients will have at least one valuein a set or serial specimens >0.50 ng/ml. 99% of normals are between 0.0 - 0.10 ng/ml. Serial samples on a patient that are all <0.10 ng/mleffectively rules out AMI. Persistentlyincreased troponin I values that are above theupper limit of normal but below the threshold for AMIindicate mycardial injury but not necessarily an ischemicmechanism of injury. Troponin Important Points 1. Troponin is specific for myocardial injury but not forAMI. Elevated troponin levels above the upper limit ofnormal but below the AMI cutoff may be present in cardiacinjury other then AMI and represent some degree of risk. 2. Elevated troponin levels inconsistent with patienthistory or clinical condition should be considered a sign toinvestigate for other cardiac conditions.3. Serial sampling is critical for accurate diagnosis.[facility] HospitalMyoglobin2019-10-12 22:20:00 Test Item Value Reference Range Interpretation Comments Myoglobin (test code = 2639-3) 69 17.4-106.0 [facility] HospitalAmmonia2019-10-12 22:20:00 Test Item Value Reference Range Interpretation Comments Ammonia (test code = 61605-6) 20 11-35 [facility] HospitalInfluenza Type A Qzspglv6741-30-34 22:20:00 Test Item Value Reference Range Interpretation Comments Influenza Type A Antigen (test code NEGATIVE NEGATIVE = 33352-1) [facility] HospitalInfluenza Type B Duemuan4997-21-01 22:20:00 Test Item Value Reference Range Interpretation Comments Influenza Type B Antigen (test code NEGATIVE NEGATIVE = 31872-5) *This test method is capable of detecting both viable andnon-viable influenza particles. Performancedepends on theantigen load and may not correlate with other diagnosticmethods performed on the same specimen. *Results of the FLUA+B test should be correlated with theclinical history, epidemiological data and other dataavailable to the clinician evaluating the patient.[facility] HospitalPlasmodium species DNA (PCR)2019-09-07 22:20:00 Test Item Value Reference Range Interpretation Comments Plasmodium species DNA (PCR) (test Positive Negative code = Plasmodium species DNA (PCR)) This test was developed and its performance characteristicsdetermined by [employer] It has not been cleared or approvedby the Food and Drug Administration. The FDA hasdetermined that such clearance or approval is notnecessary.[facility] HospitalPlasmodium falciparum (PCR)2019-09-07 22:20:00 Test Item Value Reference Range Interpretation Comments Plasmodium falciparum (PCR) (test Positive . code = Plasmodium falciparum (PCR)) [facility] HospitalPlasmodium knowlesi (PCR)2019-09-07 22:20:00 Test Item Value Reference Range Interpretation Comments Plasmodium knowlesi (PCR) (test code Negative . = Plasmodium knowlesi (PCR)) [facility] HospitalPlasmodium malariae (PCR)2019-09-07 22:20:00 Test Item Value Reference Range Interpretation Comments Plasmodium malariae (PCR) (test code Negative . = Plasmodium malariae (PCR)) [facility] HospitalPlasmodium ovale (PCR)2019-09-07 22:20:00 Test Item Value Reference Range Interpretation Comments Plasmodium ovale (PCR) (test code = Negative . Plasmodium ovale (PCR)) [facility] HospitalPlasmodium vivax (PCR)2019-09-07 22:20:00 Test Item Value Reference Range Interpretation Comments Plasmodium vivax (PCR) (test code = Negative . Plasmodium vivax (PCR)) Performed at: [address] [id number] Director: Timothy SALDANA, Phone: [phone] Center Hospital Nebukbr0584-11-53 22:20:00 Test Item Value Reference Range Interpretation Comments Blood Culture (test code NO GROWTH AT 5 DAYS. = Blood Culture) [facility] U[facility] Rqhvajxh0748-20-11 20:29:00 Test Item Value Reference Range Interpretation Comments Blood Urea Nitrogen (test code = 23 8-26 3094-0) [facility] HospitalCreatinine2019-01-12 20:29:00 Test Item Value Reference Range Interpretation Comments Creatinine (test code = 2160-0) 1.1 0.61-1.24 [facility] HospitalEGFR Epzq2231-10-88 20:29:00 Test Item Value Reference Range Interpretation Comments EGFR Note (test code = 68473-4) 103.9 59.3-175.8 eGFR (Estimated Glomerular Filtration Rate) eGFR calculation value obtained using the [facility] Children'S HospitalQuadratic (MCQ) equation. The reportable reference range isrecommended to be greater than 60 ml/min/1.73m. This is anestimation of the patient's GFR and clinical correlation isrecommended. This eGFR calculation does not account for race. This resultmay differ from other equations available. [facility] TwyuwuzaQsvyniw9690-16-47 20:29:00 Test Item Value Reference Range Interpretation Comments Albumin (test code = 1751-7) 4.2 3.5-5.0 [facility] HospitalTotal Dokjuxdrv3931-10-52 20:29:00 Test Item Value Reference Range Interpretation Comments Total Bilirubin (test code = 1975-2) 0.4 0.2-1.2 [facility] HospitalAlkaline Yxrigoxlmtg7809-83-32 20:29:00 Test Item Value Reference Range Interpretation Comments Alkaline Phosphatase (test code = 74 32-91 6768-6) [facility] HospitalTotal Itffpwd1479-49-62 20:29:00 Test Item Value Reference Range Interpretation Comments Total Protein (test code = 2885-2) 7.0 6.5-8.1 [facility] HospitalAlanine Aminotransferase (ALT/SGPT)2018-12-08 20:29:00 Test Item Value Reference Range Interpretation Comments Alanine Aminotransferase (ALT/SGPT) 24 7-55 (test code = 1742-6) [facility] HospitalAspartate Amino Transf (AST/SGOT)2018-12-08 20:29:00 Test Item Value Reference Range Interpretation Comments Aspartate Amino Transf (AST/SGOT) (test 24 15-41 code = 1920-8) [facility] HospitalGlobulin2019-01-12 20:29:00 Test Item Value Reference Range Interpretation Comments Globulin (test code = 03465-5) 2.8 2.3-3.5 [facility] HospitalAlbumin/Globulin Vijqo1432-26-30 20:29:00 Test Item Value Reference Range Interpretation Comments Albumin/Globulin Ratio (test code = 1.5 1.2-2.2 1759-0) [facility] Centerodium Lswqn9452-48-53 20:22:00 Test Item Value Reference Range Interpretation Comments Sodium Level (test code = 2951-2) 134 135-144 L [facility] HospitalPotassium Tolat9327-83-80 20:22:00 Test Item Value Reference Range Interpretation Comments Potassium Level (test code = 2823-3) 4.0 3.5-5.1 [facility] HospitalChloride Wjxpb4134-64-56 20:22:00 Test Item Value Reference Range Interpretation Comments Chloride Level (test code = 2075-0) 99 101-111 L [facility] HospitalCarbon Dioxide Jktll1740-53-33 20:22:00 Test Item Value Reference Range Interpretation Comments Carbon Dioxide Level (test code = 27 22-32 8-9) [facility] HospitalAnion Rwy1448-03-30 20:22:00 Test Item Value Reference Range Interpretation Comments Anion Gap (test code = 78532-1) 12.0 10-20 [facility] HospitalGlucose Dssgu8919-47-82 20:22:00 Test Item Value Reference Range Interpretation Comments Glucose Level (test code = 2345-7) 259 65-99 H Prediabetes 100 to 125 mg/dlDiabetes 126 mg/dl or higher Prediabetes refers to individuals with plasma glucose levelsintermediate between those considered normal and thoseconsidered diabetic and is also referred to as impairedglucose tolerance (IGT) or impaired fasting glucose (IFG). [facility] HospitalCalcium Xgrch7390-40-74 20:22:00 Test Item Value Reference Range Interpretation Comments Calcium Level (test code = 73367-6) 8.9 8.9-10.3 [facility] HospitalWhite Blood Bnbur5773-78-36 20:21:00 Test Item Value Reference Range Interpretation Comments White Blood Count (test code = 6690-2) 9.3 4.8-10.8 [facility] HospitalRed Blood Uzors9026-97-71 20:21:00 Test Item Value Reference Range Interpretation Comments Red Blood Count (test code = 789-8) 5.09 4.70-6.00 [facility] HospitalHemoglobin2019-01-12 20:21:00 Test Item Value Reference Range Interpretation Comments Hemoglobin (test code = 718-7) 14.1 13.5-17.5 [facility] HospitalHematocrit2019-01-12 20:21:00 Test Item Value Reference Range Interpretation Comments Hematocrit (test code = 86411-4) 41.9 42.0-52.0 L [facility] HospitalMean Corpuscular Zcjqgo8943-50-89 20:21:00 Test Item Value Reference Range Interpretation Comments Mean Corpuscular Volume (test code = 82.2 80.0-100.0 64199-8) [facility] Corpuscular Lrewdoasfn0048-44-98 20:21:00 Test Item Value Reference Range Interpretation Comments Mean Corpuscular Hemoglobin (test code 27.8 27.0-31.0 = 785-6) [facility] Corpuscular Hgb Concent Axgc1771-69-28 20:21:00 Test Item Value Reference Range Interpretation Comments Mean Corpuscular Hgb Concent Diff (test 33.8 32.0-36.0 code = 786-4) [facility] HospitalRed Cell Distribution Unmxt9216-83-13 20:21:00 Test Item Value Reference Range Interpretation Comments Red Cell Distribution Width (test code 14.8 11.5-14.5 H = 788-0) [facility] HospitalPlatelet Dnqfz6029-24-04 20:21:00 Test Item Value Reference Range Interpretation Comments Platelet Count (test code = 777-3) 181 130-400 [facility] [facility] [id number] 20:21:00 Test Item Value Reference Range Interpretation Comments Mean Platelet Volume (test code = 8.3 7.4-10.4 57157-7) [facility] (%)2018-12-08 20:21:00 Test Item Value Reference Range Interpretation Comments Granulocytes (%) (test code = 93098-5) 71.4 50.0-75.0 [facility] %2018-12-08 20:21:00 Test Item Value Reference Range Interpretation Comments Lymphocytes % (test code = 736-9) 17.5 20.0-40.0 L [facility]Mon[facility] %2018-12-08 20:21:00 Test Item Value Reference Range Interpretation Comments Monocytes % (test code = 5905-5) 9.7 0.0-15.0 [facility] %2018-12-08 20:21:00 Test Item Value Reference Range Interpretation Comments Eosinophils % (test code = 713-8) 0.5 0.0-10.0 [facility] %2018-12-08 20:21:00 Test Item Value Reference Range Interpretation Comments Basophils % (test code = 67940-1) 0.9 0.0-2.0 [facility]Granul[facility] #2018-12-08 20:21:00 Test Item Value Reference Range Interpretation Comments Granulocytes # (test code = 61541-2) 6.7 1.8-6.4 H [facility]Lymph[facility] #2018-12-08 20:21:00 Test Item Value Reference Range Interpretation Comments Lymphocytes # (test code = 28932-6) 1.6 1.2-3.6 [facility]Mon[facility] #2018-12-08 20:21:00 Test Item Value Reference Range Interpretation Comments Monocytes # (test code = 742-7) 0.9 0.3-0.9 [facility] #2018-12-08 20:21:00 Test Item Value Reference Range Interpretation Comments Eosinophils # (test code = 711-2) 0.0 0.0-0.5 [facility] #2018-12-08 20:21:00 Test Item Value Reference Range Interpretation Comments Basophils # (test code = 58541-9) 0.1 0.0-0.2 [facility] HospitalManual [id number] 20:21:00 Test Item Value Reference Range Interpretation Comments Manual Differential (test code = Manual NO Differential) [facility] HospitalGlucose (Fingerstick)2018-12-08 19:30:00 Test Item Value Reference Range Interpretation Comments Glucose (Fingerstick) (test code = 269 65-99 H 92626-0) [facility]
[2020-07-30] MEDS ORDERED: NA CHLORIDE 0.9% 500 ML ONE ×2 (13:29→15:12)
[2020-07-30 14:37] VITALS: TEMP 96.8
[2020-07-30] MEDS ORDERED: HEPA 1000U/500MLS 2,000 UNIT/1,000 ML BAG IV ONE (15:17)
[2020-07-30] MEDS ORDERED: HEPARIN 5000 UNIT/ML 1 ML VIAL ONE (15:17)
[2020-07-30] MEDS ORDERED: MIDAZOLAM HCL 2 MG/2 ML INJ ONE (15:18)
[2020-07-30] MEDS ORDERED: NITROGLYCERIN 100 MCG/ML SYR (for cath lab use only) IV ONE (15:18)
[2020-07-30] MEDS ORDERED: NICARDIPINE HCL 25 MG/10 ML IV ONE (15:18)
[2020-07-30] MEDS ORDERED: FENTANYL CITR 100 MCG/2 ML ONE (15:18)
[2020-07-30] MEDS ORDERED: HEPARIN 10,000 UNIT/10 ML VIAL IV ONE (15:18)
[2020-07-30] MEDS ORDERED: ATROPINE SULF 1 MG/10 ML SYR IV ONE (15:18)
[2020-07-30 18:03] VITALS: BP 134/95; O2SAT 97
== END 2020-07-30 18:15 | disposition home or self-care (01) ==
LOC: CCL 13:07
DX: I25.10 Atherosclerotic heart disease of native coronary artery without angina pectoris (principal); I42.8 Other cardiomyopathies; I10 Essential (primary) hypertension; Z20.828 Contact with and (suspected) exposure to other viral communicable diseases; E78.5 Hyperlipidemia, unspecified; E11.9 Type 2 diabetes mellitus without complications; Z79.4 Long term (current) use of insulin; Z79.82 Long term (current) use of aspirin
CPT/HCPCS: 93005; 85025; 80048; 36415; 85610; 82947 ×2; 85730; 71046; 93460; U0002; C1893; J1644 ×2; J2250; J3010; J7040 ×2

== ENCOUNTER 2020-08-20 18:58 | Emergency (ER) | payer BC ==
--- OUTSIDE RECORDS SUMMARY | 2020-08-20 19:03 | XMS REPORT | Continuity of Care Document ---
:1975 Author Organization [facility] t Address [address] [place] [address] Care Team Providers Name Role Phone Nadir Garcia MD Attending Clinician Payers Payer Name Policy Type Policy Number Effective Date Expiration Date S lj BCBS / HMO NA 2017 [facility] 00:00:00 [facility] Problems Condition Condition Condition Status Onset [...] DA Active U 2018-11 [facility]13 [place] 00:[facility]: [facility] 00 [facility] Social History Social Habit Start Date Stop Date Quantity Comments Source Sex Assigned At [birth year] [facility] Medications Ordered Filled Start Stop Current Ordering Indication Dosage Frequency Signature Comments Components Source Medication Medication Date Date Medication? Clinician (SIG) Name Name Amlodipine Amlodipine Yes 10 EVERY DAY Jessicashirley Besylate Besylate @ 0900 lle (NORVASC 10 (NORVASC 10 M emoria MG TAB) 10 MG TAB) 10 l MG TAB MG TAB Hospita l Insulin Insulin Yes 40 EVERY DAY Pickard svi Glargine Glargine @ 0900 lle (Toujeo (Toujeo Memoria Solostar) Solostar) l 300 UNIT/ML 300 UNIT/ML H ospita INJ INJ l Insulin Insulin Yes 10 TWICE Emmaerik Lispro Lispro DAILY, lle (HUMALOG (HUMALOG BEFORE [...] BP Systolic 2020-03-23 16:55:00 147 mm[Hg] [facility] BP Diastolic 2020-03-23 16:55:00 100 mm[Hg] [facility] Body Temperature 2020-03-23 16:55:00 97.7 [degF] Neeraj [facility] Respiratory rate 2020-03-23 16:55:00 16 /[facility] Heart Rate 2020-03-23 16:55:00 89 /min [facility] Oxygen saturation by 2020-03-23 16:55:00 96 /min [place] Pulse oximetry [facility] Height 2020-03-18 05:16:00 66 [in_i] [facility] Weight 2020-03-18 05:16:00 79.917 kg [facility] BMI (Body Mass 2020-03-18 05:16:00 28.4 kg/m2 [place] Index) [facility] BP Systolic 2019-09-08 20:13:00 114 mm[Hg] [facility] BP Diastolic 2019-09-08 20:13:00 78 mm[Hg] [facility] Body Temperature 2019-09-08 20:13:00 98.6 [degF] [facility] Respiratory rate 2019-09-08 20:13:00 16 /min [facility] Heart Rate 2019-09-08 20:13:00 74 /min [facility] Oxygen saturation by 2019-09-08 20:13:00 93 /min [place] Pulse oximetry [facility] Height 2019-09-08 06:00:00 68 [in_i] [facility] Weight 2019-09-08 06:00:00 77.196 kg [facility] BMI (Body Mass 2019-09-08 06:00:00 25.9 kg/m2 [facility] Procedures Procedure Date / Time Performing Clinician Source Performed CBCP W/PLT-Without Diff 2020-03-21 00:00:00 [facility] CRP (C-Reactive Protein) 2020-03-21 00:00:00 [facility] FERRITIN 2020-03-21 00:00:00 [facility] FIBRINOGEN 2020-03-21 00:00:00 [facility] LDH 2020-03-21 00:00:00 [facility] CHEST 1 VIEW (AP) 2020-03-21 00:00:00 [facility] CHEST 1 VIEW (AP) 2020-03-19 00:00:00 [facility] BASIC METABOLIC PANEL 2020-03-18 00:00:00 [facility] CRP (C-Reactive Protein) 2020-03-17 00:00:00 [facility] FERRITIN 2020-03-17 00:00:00 [facility] LDH 2020-03-17 00:00:00 [facility] CBCA W/PLT & AUTO 2020-03-17 00:00:00 [facility] COMPREHENSIVE METABOLIC 2020-03-17 00:00:00 [facility] CHEST 1 VIEW (PA) 2020-03-17 00:00:00 [facility] BASIC METABOLIC PANEL 2020-03-16 00:00:00 [facility] CBCA W/PLT & AUTO 2020-03-16 00:00:00 [facility] MAGNESIUM 2020-03-16 00:00:00 [facility] FERRITIN 2020-03-16 00:00:00 [facility] LDH 2020-03-16 00:00:00 [facility] D- DIMER 2020-03-16 00:00:00 [facility] CHEST 1 VIEW (AP) 2020-03-16 00:00:00 [facility] BASIC METABOLIC PANEL 2020-03-15 00:00:00 [facility] CBCA W/PLT & AUTO 2020-03-15 00:00:00 [facility] ARTERIAL BLOOD GASES 2020-03-15 00:00:00 [facility] CHEST 1 VIEW (AP) 2020-03-15 00:00:00 [facility] CBCA W/PLT & AUTO 2020-03-14 00:00:00 [facility] COMPREHENSIVE METABOLIC 2020-03-14 00:00:00 [facility] MAGNESIUM 2020-03-14 00:00:00 [facility] STREP PNEUMONIAE URINARY 2020-03-14 00:00:00 [facility] GROUP A STREP SCREEN 2020-03-14 00:00:00 [facility] ARTERIAL BLOOD GASES 2020-03-14 00:00:00 [facility] CHEST 1 VIEW (AP) 2020-03-14 00:00:00 [facility] CRP (C-Reactive Protein) 2020-03-13 00:00:00 [facility] FERRITIN 2020-03-13 00:00:00 [facility] LDH 2020-03-13 00:00:00 [facility] PROCALCITONIN 2020-03-13 00:00:00 [facility] COVID-19 2020-03-13 00:00:00 [facility] BNP RAPID 2020-03-13 00:00:00 [facility] CBCD W/PLT& MANUAL DIFF 2020-03-13 00:00:00 [facility] ARTERIAL BLOOD GASES 2020-03-13 00:00:00 [facility] INFLUENZA A & B 2020-03-13 00:00:00 [facility] BLOOD CULTURE 2020-03-13 00:00:00 [facility] COMPREHENSIVE METABOLIC 2020-03-13 00:00:00 [facility] A1C 2020-03-13 00:00:00 [facility] MAGNESIUM 2020-03-13 00:00:00 [facility] D- DIMER 2020-03-13 00:00:00 [facility] LEGIONELLA URINARY 2020-03-13 00:00:00 [facility] GROUP A STREP SCREEN 2020-03-13 00:00:00 [facility] RESP VIRUS PANEL (RVP) 2020-03-13 00:00:00 [facility] CHEST 1 VIEW (AP) 2020-03-13 00:00:00 [facility] CBCA W/PLT & AUTO 2019-09-08 00:00:00 [facility] METABOLIC 2019-09-08 00:00:00 [facility] HEPATITIS PANEL 2019-09-08 00:00:00 [facility] A1C 2019-09-08 00:00:00 [facility] LIPID PANEL 2019-09-08 00:00:00 [facility] LACTIC ACID 2019-09-08 00:00:00 [facility] CBCA W/PLT & AUTO 2019-09-07 00:00:00 [facility] COMPREHENSIVE METABOLIC 2019-09-07 00:00:00 [facility] UA COMPLETE W/CULTURE 2019-09-07 00:00:00 [facility] PROTIME 2019-09-07 00:00:00 [facility] PTT 2019-09-07 00:00:00 [facility] CARDIAC MARKERS PANEL 2019-09-07 00:00:00 [facility] BLOOD CULTURE 2019-09-07 00:00:00 [facility] INFLUENZA A & B 2019-09-07 00:00:00 [facility] AMMONIA 2019-09-07 00:00:00 [facility] MALARIA 2019-09-07 00:00:00 [facility] MAGNESIUM 2019-09-07 00:00:00 [facility] CHEST 1 VIEW (AP) 2019-09-07 00:00:00 [facility] COMPREHENSIVE METABOLIC 2018-12-08 00:00:00 [facility] CBCA W/PLT & AUTO 2018-12-08 00:00:00 [facility] US LEFT EXTR VENOUS 2018-12-08 00:00:00 [facility] Plan of Care Planned Activity Planned Date Details Comments Source Instructions DI for COVID-19 [facility] (Suspected or Confirmed Hosp ital ) Instructions Coronavirus Disease 2018 [facility] Encounters Start End Encounter Admission Attending Care Care Encounter Source Date/Time Date/Time Type Type Clinicians Facility Department ID 2020-03-13 2020-03-23 Discharged [facility] [id number] tsvi 09:36:00 19:30:00 Inpatient [facility] 76 [facility] Hosp[facility] l 2019-09-07 2019-09-08 Discharged [facility] [id number] tsvi 21:42:00 22:00:[address] Hospita l 2018-12-08 2018-12-08 Depart[address] Jose, [facility] [id number] tsvi 19:05:00 21:54:00 Emergency Lakhwinder Ya l le [facility] l Results Test Description Test Time Test Comments Results Result Comments Source Glucose (Fingerstick) 2020-03-23 17:26:00 Test Item Value Reference Range Interpretation Comme nts Glucose (Fingerstick) (test code = 08238-6) 275 65-99 [facility] [id number] 04:45:00 Test Item Value Reference Range Interpretation Comments White Blood Count (test code = 6690-2) 10.8 3.9-11.8 [facility] Center[facility] Blood [id number] 04:45:00 Test Item Value Reference Range Interpretation Comments Red Blood Count (test code = 789-8) 4.51 4.18-5.86 [facility] CenterHemoglobin2020-04-25 04:45:00 Test Item Value Reference Range Interpretation Comments Hemoglobin (test code = 718-7) 12.3 13.1-17.5 [facility] CenterHematocrit2020-04-25 04:45:00 Test Item Value Reference Range Interpretation Comments Hematocrit (test code = 05551-3) 35.6 38.7-51.4 [facility] Corpuscular [id number] 04:45:00 Test Item Value Reference Range Interpretation Comments Mean Corpuscular Volume (test code = 78.8 79.8-99.1 82087-7) [facility] Corpuscular [id number] 04:45:00 Test Item Value Reference Range Interpretation Comments Mean Corpuscular Hemoglobin (test code 27.2 26.3-34.0 = 83044-4) [facility] Corpuscular Hgb Concent [id number] 04:45:00 Test Item Value Reference Range Interpretation Comments Mean Corpuscular Hgb Concent Diff (test 34.5 32.0-36.0 code = 44296-3) [facility] Center[facility] Cell Distribution [id number] 04:45:00 Test Item Value Reference Range Interpretation Comments Red Cell Distribution Width (test code 15.9 11.4-14.5 = 59128-2) [facility] CenterPlatelet [id number] 04:45:00 Test Item Value Reference Range Interpretation Comments Platelet Count (test code = 777-3) 312 152-386 [facility] Platelet [id number] 04:45:00 Test Item Value Reference Range Interpretation Comments Mean Platelet Volume (test code = 8.1 6.8-10.1 66263-6) [facility] CenterFibrinogen2020-04-25 04:45:00 Test Item Value Reference Range Interpretation Comments Fibrinogen (test code = 3255-7) 483 200-395 [facility] CenterLactate Womubgbpkthku9620-33-67 04:45:00 Test Item Value Reference Range Interpretation Comments Lactate Dehydrogenase (test code = 226 98-192 2543-7) [facility] CenterC-Reactive [id number] 04:45:00 Test Item Value Reference Range Interpretation Comments C-Reactive Protein (test code = 1988-5) 5.4 0.0-1.0 [facility] CenterFerritin2020-04-25 04:45:00 Test Item Value Reference Range Interpretation Comments Ferritin (test code = 2276-4) 511.9 11-306.8 [facility] Fallsodium [id number] 12:50:00 Test Item Value Reference Range Interpretation Comments Sodium Level (test code = 2951-2) 138 135-144 [facility] CenterPotassium [id number] 12:50:00 Test Item Value Reference Range Interpretation Comments Potassium Level (test code = 2823-3) 2.6 3.5-5.1 Critical Result S_K:2.6 Called to and read back by: JENA GROVE RN at: 03/18/2020 15:21:35 by:ENRIQUETA CARRANZACitizens Medical CenterChloride [id number] 12:50:00 Test Item Value Reference Range Interpretation Comments Chloride Level (test code = 2075-0) 96 101-111 [facility] CenterCarbon Dioxide [id number] 12:50:00 Test Item Value Reference Range Interpretation Comments Carbon Dioxide Level (test code = 32 22-32 8-9) [facility] CenterAnion [id number] 12:50:00 Test Item Value Reference Range Interpretation Comments Anion Gap (test code = 79595-8) 12.6 10-20 [facility] CenterGlucose [id number] 12:50:00 Test Item Value Reference Range Interpretation Comments Glucose Level (test code = 2345-7) 160 65-99 Prediabetes 100 to 125 mg/dlDiabetes 126 mg/dl or higher Prediabetes refers to individuals with plasma glucose levelsintermediate between those considered normal and thoseconsidered diabetic and is also referred to as impairedglucose tolerance (IGT) or impaired fasting glucose (IFG). [facility] CenterBlood Urea [id number] 12:50:00 Test Item Value Reference Range Interpretation Comments Blood Urea Nitrogen (test code = 15 07-22 3094-0) [facility] CenterCreatinine2020-04-22 12:50:00 Test Item Value Reference Range Interpretation Comments Creatinine (test code = 2160-0) 0.7 0.61-1.24 [facility] CenterEGFR [id number] 12:50:00 Test Item Value Reference Range Interpretation Comments EGFR Note (test code = 48458-1) 130.0 59.3-175.8 eGFR (Estimated Glomerular Filtration Rate) eGFR calculation value obtained using the Viera HospitalQuadratic (Q) equation. The reportable reference range isrecommended to be greater than 60 ml/min/1.73m. This is anestimation of the patient's GFR and clinical correlation isrecommended. This eGFR calculation does not account for race. This resultmay differ from other equations available. [facility] CenterCalcium [id number] 12:50:00 Test Item Value Reference Range Interpretation Comments Calcium Level (test code = 69899-5) 8.0 8.9-10.3 [facility] CenterGranulocytes (%)2020-03-17 05:25:00 Test Item Value Reference Range Interpretation Comments Granulocytes (%) (test code = 73293-1) 83.4 37.8-74.6 [facility] CenterLymphocytes %2020-03-17 05:25:00 Test Item Value Reference Range Interpretation Comments Lymphocytes % (test code = 736-9) 9.9 16.1-47.9 [facility] %2020-03-17 05:25:00 Test Item Value Reference Range Interpretation Comments Monocytes % (test code = 5905-5) 6.4 4.4-13.5 [facility] HospitalEosinophils %2020-03-17 05:25:00 Test Item Value Reference Range Interpretation Comments Eosinophils % (test code = 713-8) 0.1 0.7-8.5 [facility] CenterBasophils %2020-03-17 05:25:00 Test Item Value Reference Range Interpretation Comments Basophils % (test code = 30991-5) 0.2 0.0-2.0 [facility] CenterGranulocytes #2020-03-17 05:25:00 Test Item Value Reference Range Interpretation Comments Granulocytes # (test code = 55219-9) 9.5 1.5-8.8 [facility] CenterLymphocytes #2020-03-17 05:25:00 Test Item Value Reference Range Interpretation Comments Lymphocytes # (test code = 85583-7) 1.1 0.6-5.7 [facility] CenterMonocytes #2020-03-17 05:25:00 Test Item Value Reference Range Interpretation Comments Monocytes # (test code = 742-7) 0.7 0.2-1.6 [facility] HospitalEosinophils #2020-03-17 05:25:00 Test Item Value Reference Range Interpretation Comments Eosinophils # (test code = 711-2) 0.0 0.0-1.0 [facility] CenterBasophils #2020-03-17 05:25:00 Test Item Value Reference Range Interpretation Comments Basophils # (test code = 00011-4) 0.0 0.0-0.2 [facility] CenterManual Gpffkvcngvke7112-23-20 05:25:00 Test Item Value Reference Range Interpretation Comments Manual Differential (test code = Manual NO Differential) [facility] CenterAlbumin2020-04-21 05:25:00 Test Item Value Reference Range Interpretation Comments Albumin (test code = 1751-7) 2.6 3.5-5.0 [facility] CenterTotal [id number] 05:25:00 Test Item Value Reference Range Interpretation Comments Total Bilirubin (test code = 1975-2) 0.6 0.2-1.2 [facility] CenterAlkaline Fdkcvxubjkk4437-66-98 05:25:00 Test Item Value Reference Range Interpretation Comments Alkaline Phosphatase (test code = 69 32-91 6768-6) [facility] CenterTotal Bazdgoi2065-48-70 05:25:00 Test Item Value Reference Range Interpretation Comments Total Protein (test code = 2885-2) 6.2 6.5-8.1 [facility] CenterAlanine Aminotransferase (ALT/SGPT)2020-03-17 05:25:00 Test Item Value Reference Range Interpretation Comments Alanine Aminotransferase (ALT/SGPT) 14 7-55 (test code = 1742-6) [facility] CenterAspartate Amino Transf (AST/SGOT)2020-03-17 05:25:00 Test Item Value Reference Range Interpretation Comments Aspartate Amino Transf (AST/SGOT) (test 16 15-41 code = 1920-8) [facility] CenterGlobulin2020-04-21 05:25:00 Test Item Value Reference Range Interpretation Comments Globulin (test code = 29973-3) 3.6 2.3-3.5 [facility] CenterAlbumin/Globulin [id number] 05:25:00 Test Item Value Reference Range Interpretation Comments Albumin/Globulin Ratio (test code = 0.7 1.2-2.2 1759-0) [facility] CenterD-[id number] 12:14:00 Test Item Value Reference Range Interpretation Comments D-Dimer (test code = 03423-7) 388 0-499 The 100% NPV (Negative Predictive Value)for DVT/PEexclusion is <500 ng/mL FEU as suggested by the manufacturerand as approved by the FDA.Clinical correlation is needed. [facility] CenterMagnesium [id number] 06:15:00 Test Item Value Reference Range Interpretation Comments Magnesium Level (test code = 42118-8) 2.1 1.8-2.5 [facility] CenterArterial Blood [id number] 10:05:00 Test Item Value Reference Range Interpretation Comments Arterial Blood pH (test code = 2744-1) 7.470 7.350-7.450 [facility] CenterArterial Blood pCO2 at Patient [id number] 10:05:00 Test Item Value Reference Range Interpretation Comments Arterial Blood pCO2 at Patient Temp 43.8 32.0-48.0 (test code = 2019-8) [facility]uda[facility] Gas [id number] 10:05:00 Test Item Value Reference Range Interpretation Comments Blood Gas HCO3 (test code = 1960-4) 31.5 21.0-28.0 [facility] CenterArterial Blood Total [id number] 10:05:00 Test Item Value Reference Range Interpretation Comments Arterial Blood Total CO2 (test code = 26.9 23.0-30.0 29870-1) [facility] [place] [place] Gas Base [id number] 10:05:00 Test Item Value Reference Range Interpretation Comments Blood Gas Base Excess (test code = 7.5 -3.0-3.0 1924-7) [facility] [place] [place] Gas [id number] 10:05:00 Test Item Value Reference Range Interpretation Comments Blood Gas PO2 (test code = 2703-7) 55.0 83.0-108.0 [facility] Bld O2 Saturation (Measur)2020-03-15 10:05:00 Test Item Value Reference Range Interpretation Comments Arterial Bld O2 Saturation (Measur) 86.5 95.0-99.0 (test code = 2708-6) [facility] CenterAllen [id number] 10:05:00 Test Item Value Reference Range Interpretation Comments Chintan Test (test code = Chintan Test) YES [facility] [place] [place] Gas Puncture [id number] 10:05:00 Test Item Value Reference Range Interpretation Comments Blood Gas Puncture Site (test RIGHT RADIAL code = Blood Gas Puncture Site) [facility] CenterLegionella Antigen (LAB)2020-03-14 18:00:00 Test Item Value Reference [...] maybe below the detection limit of the test.[facility] Fallstreptococcus pneumoniae [id number] 18:00:00 Test Item Value Reference Range Interpretation Comments Streptococcus pneumoniae Antigen NEGATIVE NEGATIVE (test code = Streptococcus pneumoniae Antigen) Presumptive negative for pneumococcal pneumonia, suggestingno current or recent pneumococcal infection. However,infection due to S. pneumoniae cannot be ruled out since theantigen presnt in the specimen may be below the detectionlimit of the test.[facility] CenterGroup A Streptococcus [id number] 00:00:00 Test Item Value Reference Range Interpretation Comments Group A Streptococcus Screen (test NEGATIVE NEGATIVE code = 58795-3) Negative screens will be confirmed by culture. Please seeseparate microbiology report for these results.[facility] CenterIS SPECIMEN BLOODY OR MUCOID?2020-03-14 00:00:00 Test Item [...] together with other clinical informationavailable to the physician.[facility] CenterInfluenza Virus Type A (PCR)2020-03-14 00:00:00 Test Item Value Reference Range Interpretation Comments Influenza Virus Type A (PCR) (test Negative Negative code = Influenza Virus Type A (PCR)) [facility] CenterInfluenza Virus Type B (PCR)2020-03-14 00:00:00 Test Item Value Reference Range Interpretation Comments Influenza Virus Type B (PCR) (test Negative Negative code = Influenza Virus Type B (PCR)) [facility] CenterResp Syncytial Virus Type A (PCR)2020-03-14 00:00:00 Test Item Value Reference Range Interpretation Comments Resp Syncytial Virus Type A (PCR) Negative Negative (test code = Resp Syncytial Virus Type A (PCR)) [facility] CenterResp Syncytial Virus Type B (PCR)2020-03-14 00:00:00 Test Item Value Reference Range Interpretation Comments Resp Syncytial Virus Type B (PCR) Negative Negative (test code = Resp Syncytial Virus Type B (PCR)) [facility] CenterParainfluenza Type 1 (PCR)2020-03-14 00:00:00 Test Item Value Reference Range Interpretation Comments Parainfluenza Type 1 (PCR) (test Negative Negative code = Parainfluenza Type 1 (PCR)) [facility] CenterParainfluenza Type 2 (PCR)2020-03-14 00:00:00 Test Item Value Reference Range Interpretation Comments Parainfluenza Type 2 (PCR) (test Negative Negative code = Parainfluenza Type 2 (PCR)) [facility] CenterParainfluenza Type 3 (PCR)2020-03-14 00:00:00 Test Item Value Reference Range Interpretation Comments Parainfluenza Type 3 (PCR) (test Negative Negative code = Parainfluenza Type 3 (PCR)) [facility] CenterRhinovirus (PCR)2020-03-14 00:00:00 Test Item Value Reference Range Interpretation Comments Rhinovirus (PCR) (test code = Negative Negative Rhinovirus (PCR)) [facility] CenterHuman Metapneumovirus (PCR)2020-03-14 00:00:00 Test Item Value Reference Range Interpretation Comments Human Metapneumovirus (PCR) (test Negative Negative code = Human Metapneumovirus (PCR)) [facility] CenterAdenovirus (PCR)2020-03-14 00:00:00 Test Item Value Reference Range Interpretation Comments Adenovirus (PCR) (test code = Negative Negative Adenovirus (PCR)) Performed at: [address] [id number] Director: Timothy SALDANA, Phone: [phone] Regional Medical CenterBlood [id number] 14:23:00 Test Item Value Reference Range Interpretation Comments Blood Culture (test code NO GROWTH AT 5 DAYS. = Blood Culture) [facility] CenterInfluenza Type A [id number] 10:15:00 Test Item Value Reference Range Interpretation Comments Influenza Type A Antigen (test code NEGATIVE NEGATIVE = 78454-4) [facility] CenterInfluenza Type B [id number] 10:15:00 Test Item Value Reference Range Interpretation Comments Influenza Type B Antigen (test code NEGATIVE NEGATIVE = 46708-0) *This test method is capable of detecting both viable andnon-viable influenza particles. Performancedepends on theantigen load and may not correlate with other diagnosticmethods performed on the same specimen. *Results of the FLUA+B test should be correlated with theclinical history, epidemiological data and other dataavailable to the clinician evaluating the patient.[facility] CenterCoronavirus (PCR)2020-03-13 10:15:00 Test Item Value Reference Range Interpretation Comments Coronavirus (PCR) (test code = See Comment Coronavirus (PCR)) TEST RESULTS SARS-CoV-2 DETECTED SARS-CoV-2 RNA DETECTEDPositive results are indicative of the presence ecPJVF-NxB-7 RNA; clinical correlation with patient historyand other [...] high complexity test. Fact Sheet for HealthCare Providers:https://Digital Theatre/m7mlrrz(or :https://www.cdc.gov/coronavirus/2019-ncov/downloads/Wgehcvaym-bfa-Akkkgbmyfl-Pr cbwiuoz-9890-yTyD.pdf) Fact Sheet for Patients:https://Digital Theatre/zble58o(or:https://www.cdc.gov/coronavirus/2019-nco v/downloads/Muhifaplt-qzd-Bwewhxuw-2019-nCoV.pdf) Performed at: MAINPerforming Lab: [facility] [place] [address]. [id number] Director: Dax Marquis M.D.[phone] [facility] #[id number] [place] #[id number] CALLED TO VISHNU ON 03/16/20 AT 15:00 [facility] Cseftftsdxc2939-52-68 10:02:00 Test Item Value Reference Range Interpretation Comments Segmented Neutrophils (test code = 81 42-75 45976-3) [facility] Ojvknmoeytl9449-50-04 10:02:00 Test Item Value Reference Range Interpretation Comments Band Neutrophils (test code = 75111-7) 6 2-10 [facility] CenterQnqcciesYcocrhjccgz2654-98-83 10:02:00 Test Item Value Reference Range Interpretation Comments Lymphocytes (test code = 24097-5) 8 20-51 [facility] CenterMonocytes2020-04-17 10:02:00 Test Item Value Reference Range Interpretation Comments Monocytes (test code = 65291-7) 5 2-9 [facility] CenterPlatelet Tgffkgig8033-97-28 10:02:00 Test Item Value Reference Range Interpretation Comments Platelet Estimate (test code = ADEQUATE ADEQUATE 48462-3) [facility] CenterPlatelet Dtsloznkka8212-68-15 10:02:00 Test Item Value Reference Range Interpretation Comments Platelet Morphology (test code = NORMAL NORMAL 17100-0) [facility] CenterNormal RBC Ogisaernmz6795-97-79 10:02:00 Test Item Value Reference Range Interpretation Comments Normal RBC Morphology (test SEE MORPHOLOGY NORMAL code = 81464-6) [facility] CenterVrlhgqgxPjapbwmoqdlmb4171-40-83 10:02:00 Test Item Value Reference Range Interpretation Comments Procalcitonin (test code = 20225-8) 0.15 0-0.49 PROCALCITONIN <0.50 ng/mL Systemic infection is not likely. Local bacterial infection is possible. PROCALCITONIN >0.50-2.00 ng/mL Systemic infection is possible. PROCALCITONIN >2.00 ng/mL Systemic infection is likely, unless other causes are known PROCALCITONIN >10.00 ng/mL Critical systemic inflammatory response, most likely due to bacterial sepsis.[facility] CenterB-Type Natriuretic Berrmsu7662-63-22 10:02:00 Test Item Value Reference Range Interpretation Comments B-Type Natriuretic Peptide (test code = 68 0-100 49546-0) [facility] CenterHemoglobin A1c Qnlejfb3914-21-76 10:02:00 Test Item Value Reference Range Interpretation Comments Hemoglobin A1c Percent (test code = 10.20 4.0-5.6 4548-4) Prediabetes 5.7% to 6.4%Diabetes 6.5% or higher Elevated levels of HbA1c suggest the need for moreaggressive treatmentof glycemia. The [place] DiabetesAssociation recommends that a primary goal of therapy shouldbe a HbA1c of <7% and that physicians should reevaluate thetreatment regimen in patients with HbA1c values consistently>8%. [facility] CenterN/[id number] 10:02:00 Test Item Value Reference Range Interpretation Comments N/A (test code = 03560-6) 245 A1C Result% Estimated Avg.Glucose (EAG) 6.0% 126 mg/dL 6.5% 140 mg/dL 7.0% 154 mg/dL 7.5% 169 mg/dL 8.0% 183 mg/dL 8.5% 197 mg/dL 9.0% 212 mg/dL 9.5% 226 mg/dL 10.0% 240 mg/dL Reference: kenneth Brown, Diabetes Care 31: 1437, 2008.[facility] CenterRETICULOCYTE [id number] 07:14:00 Test Item Value Reference Range Interpretation Comments RED BLOOD CELL (test code = RBC) 2.80 M/mm3 3.8-5.5 L RETIC COUNT (AUTOMATED) (test 3.59 % auto 0.63-2.24 H code = RETICA) RETICULOCYTE NUMBER (test code = 0.101 M/mm3 0.0324-0.1072 N RETN) IMMATURE RETICULOCYTE FRACTION 40.0 % 2.3-13.4 H (test code = IRF) [id number] 07:14:00 Test Item Value Reference Range Interpretation Comments HAPTOGLOBIN (test code <10 mg/dL 34-200 A Perfo rmed At: BN = HAPT) [facility] [address] [place], [place] [id number] ra Renetta SALDANA Ph:[phone] GLUCOSE BEDSIDE [id number] 15:39:00 Test Item Value Reference Range Interpretation Comments GLUCOSE BEDSIDE TESTING (test code 345 MG/DL 70-119 H = GLUBED) G6PD [id number] 11:09:00 Test Item Value Reference Range Interpretation Comments RBC MASS 2.82 x10E6/uL 4.14-5.80 A (test code = RBCMASS) XTYOBFQ-8-NYD 295 146-376 INFCE Result U nits: U/10E12 [...] weeks following a hem olytic event.Performed At: HD [facility] [address] [id number] Kyle L MD Ph:[phone] rformed At: [facility] [id number] ra Renetta SALDANA Ph:[phone] GLUCOSE BEDSIDE [id number] 10:53:00 Test Item Value Reference Range Interpretation Comments GLUCOSE BEDSIDE TESTING (test code 299 MG/DL 70-119 H = GLUBED) GLUCOSE BEDSIDE [id number] 10:49:00 Test Item Value Reference Range Interpretation Comments GLUCOSE BEDSIDE TESTING (test code 165 MG/DL 70-119 H = GLUBED) CBC W/MANUAL [id number] 06:15:00 Test Item Value Reference Range Interpretation [...] CRITERIA (test code = MDIFF) DIFF/SCN WBC [id number] 06:15:00 Test Item Value Reference Range Interpretation [...] RARE ON SCAN NORMAL PLTS code = [id number]) BASIC METABOLIC [id number] 04:23:00 Test Item Value Reference Range Interpretation [...] MG 1 NORMAL code = LIPINDEX) Index/DL [id number] 04:23:00 Test Item Value Reference Range Interpretation Comments PHOSPHOROUS (test code = PHOS) 2.6 MG/DL 2.5-4.9 [id number] 04:23:00 Test Item Value Reference Range Interpretation Comments MAGNESIUM (test code = MAG) 2.0 MG/DL 1.6-2.6 N BASIC METABOLIC [id number] 04:16:00 Test Item Value Reference Range Interpretation [...] <50 MG 1 NORMAL = LIPINDEX) Index/DL [id number] 04:16:00 Test Item Value Reference Range Interpretation Comments PHOSPHOROUS (test code = PHOS) MG/DL 2.5-4.9 [id number] 04:16:00 Test Item Value Reference Range Interpretation Comments MAGNESIUM (test code = MAG) 2.0 MG/DL 1.6-2.6 N CBC W/MANUAL [id number] 03:57:00 Test Item Value Reference Range Interpretation [...] CRITERIA (test code = MDIFF) DIFF/SCN WBC [id number] 03:57:00 Test Item Value Reference Range Interpretation Comments TOTAL CELLS COUNTED (test code = #CELLS >100 TCC) SEGMENTED NEUTROPHILS (test code = % 40-75 SEG) LYMPHOCYTE (test code = LYMPH) % 12.6-43.5 MORPHOLOGY COMMENT (test code = MOC) ON SCAN NORMAL RBCS PLATELET ESTIMATE (test code = ON SCAN ADEQUATE PLTEST) CBC W/MANUAL [id number] 03:57:00 Test Item Value Reference Range Interpretation [...] CRITERIA (test code = MDIFF) DIFF/SCN WBC [id number] 03:57:00 Test Item Value Reference Range Interpretation Comments TOTAL CELLS COUNTED (test code = #CELLS >100 TCC) SEGMENTED NEUTROPHILS (test code = % 40-75 SEG) LYMPHOCYTE (test code = LYMPH) % 12.6-43.5 MORPHOLOGY COMMENT (test code = MOC) ON SCAN NORMAL RBCS PLATELET ESTIMATE (test code = ON SCAN ADEQUATE PLTEST) GLUCOSE BEDSIDE [id number] 20:19:00 Test Item Value Reference Range Interpretation Comments GLUCOSE BEDSIDE TESTING (test code 330 MG/DL 70-119 H = GLUBED) GLUCOSE BEDSIDE [id number] 16:30:00 Test Item Value Reference Range Interpretation Comments GLUCOSE BEDSIDE TESTING (test code 348 MG/DL 70-119 H = GLUBED) CBC W/MANUAL [id number] 16:19:00 Test Item Value Reference Range Interpretation [...] RARE ON SCAN NORMAL PLTS code = AMWPBOFN32) PENDING RECEIPT OF SPECIMEN PER B.LAB.CA AT 09/10/19 1314BASIC METABOLIC PANEL 2019-09-10 15:59:00 [...] 1 NORMAL code = LIPINDEX) MG Index/DL [id number] 15:59:00 Test Item Value Reference Range Interpretation Comments PHOSPHOROUS (test code = PHOS) 1.7 MG/DL 2.5-4.9 L [id number] 15:59:00 Test Item Value Reference Range Interpretation Comments MAGNESIUM (test code = MAG) 2.1 MG/DL 1.6-2.6 N CBC W/MANUAL [id number] 15:49:00 Test Item Value Reference Range Interpretation [...] MDIFF) DIFF/SCN PENDING RECEIPT OF SPECIMEN PER B.LAB.CA AT 09/10/19 1314WBC DIFFERENTIAL 2019-09-10 15:49:00 Test Item Value Reference Range Interpretation Comments TOTAL CELLS COUNTED (test code = #CELLS >100 TCC) SEGMENTED NEUTROPHILS (test code = % 40-75 SEG) LYMPHOCYTE (test code = LYMPH) % 12.6-43.5 MORPHOLOGY COMMENT (test code = MOC) ON SCAN NORMAL RBCS PLATELET ESTIMATE (test code = ON SCAN ADEQUATE PLTEST) PENDING RECEIPT OF SPECIMEN PER B.LAB.CA AT 09/10/19 1314CBC W/MANUAL DIFF 2019-09-10 15:49:00 [...] RE QUIREDNotified = GLUBED) Nurse~ GLUCOSE BEDSIDE [id number] 07:28:00 Test Item Value Reference Range Interpretation Comments GLUCOSE BEDSIDE TESTING (test code 288 MG/DL 70-119 H = GLUBED) LACTIC DEHYDROGENASE(LDH)2019-09-10 05:20:00 Test Item Value Reference Range Interpretation Comments LACTIC DEHYDROGENASE(LDH) (test 454 Unit/L 84-246 H code = LDH) PT AND [id number] 04:53:00 Test Item Value Reference Interpretation Comments [...] prevention in p rosthetic heart 3.0-5.4 A [place] mortality reduc tion THROMBOPLASTIN TIME 28.6 SECONDS [...] this a LINE draw? NANTICOAGULANT THERAPY [Y,N]: [id number] 04:53:00 Test Item Value Reference Range Interpretation [...] % 2.3-13.4 H (test code = IRF) [id number] 04:49:00 Test Item Value Reference Range Interpretation Comments HAPTOGLOBIN (test code = HAPT) GLUCOSE BEDSIDE [id number] 20:26:00 Test Item Value Reference Range Interpretation Comments GLUCOSE BEDSIDE 411 MG/DL 70-119 HH LOW/HIGH NATO RT VALUE - TESTING (test code ACTION RE QUIREDNotified = GLUBED) Nurse~ GLUCOSE BEDSIDE [id number] 16:06:00 Test Item Value Reference Range Interpretation Comments GLUCOSE BEDSIDE TESTING 253 MG/DL 70-119 H Noti fied Nurse~ (test code = GLUBED) ACUTE HEPATITIS [id number] 15:37:00 Test Item Value Reference Range Interpretation [...] screening (test code = test only A GBT03CB) Non-Reactive te st result does not exclude [...] protocols onall Reactive test r esults. VITAMIN [id number] 15:02:00 Test Item Value Reference Range Interpretation Comments VITAMIN B12 (test code = VITB12) 1999 PG/ML 183-986 H FOLIC [id number] 15:02:00 Test Item Value Reference Range Interpretation Comments FOLIC ACID (test code = FOL) 14.29 NG/ML 3.10-17.50 N SED [id number] 14:24:00 Test Item Value Reference Range Interpretation [...] 1 NORMAL = LIPINDEX) Index/DL GLUCOSE BEDSIDE [id number] 11:34:00 Test Item Value Reference Range Interpretation Comments GLUCOSE BEDSIDE TESTING 164 MG/DL 70-119 H Noti fied Nurse~ (test code = GLUBED) GLUCOSE BEDSIDE [id number] 06:17:00 Test Item Value Reference Range Interpretation Comments GLUCOSE BEDSIDE TESTING (test code 144 MG/DL 70-119 H = GLUBED) CBC W/MANUAL [id number] 03:22:00 Test Item Value Reference Range Interpretation [...] CRITERIA (test code = MDIFF) DIFF/SCN WBC [id number] 03:22:00 Test Item Value Reference Range Interpretation [...] RARE ON SCAN NORMAL PLTS code = [id number]) CALCIUM [id number] 02:21:00 Test Item Value Reference Range Interpretation Comments CALCIUM IONIZED (test code = DEBBI) 1.05 mmol/L 1.13-1.32 L MALARIA ANTIGEN [id number] 02:11:00 Test Item Value Reference Range Interpretation Comments PATHOLOGIST'S REVIEW NOT COMMENTS FINDINGS (test INDICATED code = PATH) EXTERNAL MALARIAL SMEAR NOT 4 SMEARS THICK/THIN SMEAR INDICATED (test code = EXAMINED ANNA) AG FALCIPARUM POSITIVE SCREEN NEGATIVE A IFC NOTIFIE D :ON PLASMODIUM (test 09/09/19 AT 0211, code = PLAFALAG) [facility] NOTIF[facility] OF INFECTIOUS YGLDGRL93/14/19 021 by: B.LAB.NUBIA NOTIFIED: [] AG VIVAX OVALE POSITIVE SCREEN NEGATIVE A IFC NOTIFI ED :ON MALARIA (test 09/09/19 AT 02 04, code = VIVAXMAL) Destiny.DAY.[facility] NOTIFIED OF INFECTIOUS NFTMWBQ68/14/19 0204 by: ARMANDME NOTIFIED: DARNELL PEREZ.A PRESUMPTIVE NEG ATIVE result [...] hepatitis C) andparasitic infections. Specimen comments: XXURINALYSIS [id number] 01:44:00 Test Item Value Reference Range Interpretation [...] = RBCU) 0-3 #RBC/HPF 0-3 COMPREHENSIVE METABOLIC [id number] 01:42:00 Test Item Value Reference Range Interpretation [...] code = LIPINDEX) 50-100 MG Index/DL URINALYSIS [id number] 01:40:00 Test Item Value Reference Range Interpretation [...] code = RBCU) #RBC/HPF 0-3 PT AND [id number] 01:39:00 Test Item Value Reference Interpretation Comments [...] prevention in p rosthetic heart 3.0-5.4 A [place] mortality reduc tion THROMBOPLASTIN TIME 28.0 SECONDS 24-37.7 N THERAPEU TIC RANGE FOR PARTIAL (test code UNFRACTIO NATED HEPARIN = = PTT) 50.5-83.6 SEC T his test is not recommen ded to monitor low molecularweight heparin or danaparoid. Order LMWH test COLLECTION THROUGH LINES THAT HAVE BEEN PREVIOUSLY FLUS HEDWITH HEPARIN SHOULD BE AVOIDED DUE TO POSSIBLE HEPARINCONTAMIN ATION CBC W/MANUAL [id number] 01:20:00 Test Item Value Reference Range Interpretation [...] CRITERIA (test code = MDIFF) DIFF/SCN WBC [id number] 01:20:00 Test Item Value Reference Range Interpretation Comments TOTAL CELLS COUNTED (test code = #CELLS >100 TCC) SEGMENTED NEUTROPHILS (test code = % 40-75 SEG) LYMPHOCYTE (test code = LYMPH) % 12.6-43.5 MORPHOLOGY COMMENT (test code = MOC) ON SCAN NORMAL RBCS PLATELET ESTIMATE (test code = ON SCAN ADEQUATE PLTEST) CBC W/MANUAL [id number] 01:20:00 Test Item Value Reference Range Interpretation [...] CRITERIA (test code = MDIFF) DIFF/SCN WBC [id number] 01:20:00 Test Item Value Reference Range Interpretation Comments TOTAL CELLS COUNTED (test code = #CELLS >100 TCC) SEGMENTED NEUTROPHILS (test code = % 40-75 SEG) LYMPHOCYTE (test code = LYMPH) % 12.6-43.5 MORPHOLOGY COMMENT (test code = MOC) ON SCAN NORMAL RBCS PLATELET ESTIMATE (test code = ON SCAN ADEQUATE PLTEST) GLUCOSE BEDSIDE [id number] 23:33:00 Test Item Value Reference Range Interpretation Comments GLUCOSE BEDSIDE TESTING (test code 123 MG/DL 70-119 H = GLUBED) Glucose (Fingerstick)2019-09-08 19:42:00 Test Item Value Reference Range Interpretation Comments Glucose (Fingerstick) (test code = 332 65-99 69018-1) [facility] CenterLactic Acid [id number] 17:15:00 Test Item Value Reference Range Interpretation Comments Lactic Acid Level (test code = 2524-7) 2.6 0.5-2.0 Critical Result S_LAC:2.6 Called to and read back by: SEVERIANO MUKHERJEE RN at: 09/08/2019 17:57:17 by:ENRIQUETA CARRANZACitizens Medical CenterWhite Blood [id number] 05:58:00 Test Item Value Reference Range Interpretation Comments White Blood Count (test code = 6690-2) 4.1 3.9-11.8 [facility] CenterRed Blood [id number] 05:58:00 Test Item Value Reference Range Interpretation Comments Red Blood Count (test code = 789-8) 3.44 4.18-5.86 [facility] CenterHemoglobin2019-10-13 05:58:00 Test Item Value Reference Range Interpretation Comments Hemoglobin (test code = 718-7) 9.6 13.1-17.5 [facility] CenterHematocrit2019-10-13 05:58:00 Test Item Value Reference Range Interpretation Comments Hematocrit (test code = 81223-6) 28.8 38.7-51.4 [facility] Corpuscular [id number] 05:58:00 Test Item Value Reference Range Interpretation Comments Mean Corpuscular Volume (test code = 83.7 79.8-99.1 62011-2) [facility] Corpuscular [id number] 05:58:00 Test Item Value Reference Range Interpretation Comments Mean Corpuscular Hemoglobin (test code 27.9 26.3-34.0 = 78038-0) [facility] Corpuscular Hgb Concent [id number] 05:58:00 Test Item Value Reference Range Interpretation Comments Mean Corpuscular Hgb Concent Diff (test 33.3 32.0-36.0 code = 64008-3) [facility] CenterRed Cell Distribution [id number] 05:58:00 Test Item Value Reference Range Interpretation Comments Red Cell Distribution Width (test code 16.7 11.4-14.5 = 95106-3) [facility] CenterPlatelet [id number] 05:58:00 Test Item Value Reference Range Interpretation Comments Platelet Count (test code = 777-3) 37 152-386 [facility] Platelet [id number] 05:58:00 Test Item Value Reference Range Interpretation Comments Mean Platelet Volume (test code = 10.2 6.8-10.1 68053-3) [facility] CenterGranulocytes (%)2019-09-08 05:58:00 Test Item Value Reference Range Interpretation Comments Granulocytes (%) (test code = 29227-1) 71.5 37.8-74.6 [facility] CenterLymphocytes %2019-09-08 05:58:00 Test Item Value Reference Range Interpretation Comments Lymphocytes % (test code = 736-9) 20.0 16.1-47.9 [facility] CenterMonocytes %2019-09-08 05:58:00 Test Item Value Reference Range Interpretation Comments Monocytes % (test code = 5905-5) 8.1 4.4-13.5 [facility] %2019-09-08 05:58:00 Test Item Value Reference Range Interpretation Comments Eosinophils % (test code = 713-8) 0.0 0.7-8.5 [facility] CenterBasophils %2019-09-08 05:58:00 Test Item Value Reference Range Interpretation Comments Basophils % (test code = 36100-7) 0.4 0.0-2.0 [facility] CenterGranulocytes #2019-09-08 05:58:00 Test Item Value Reference Range Interpretation Comments Granulocytes # (test code = 39532-0) 3.0 1.5-8.8 [facility] CenterLymphocytes #2019-09-08 05:58:00 Test Item Value Reference Range Interpretation Comments Lymphocytes # (test code = 98245-1) 0.8 0.6-5.7 [facility] CenterMonocytes #2019-09-08 05:58:00 Test Item Value Reference Range Interpretation Comments Monocytes # (test code = 742-7) 0.3 0.2-1.6 [facility] CenterEosinophils #2019-09-08 05:58:00 Test Item Value Reference Range Interpretation Comments Eosinophils # (test code = 711-2) 0.0 0.0-1.0 [facility] CenterBasophils #2019-09-08 05:58:00 Test Item Value Reference Range Interpretation Comments Basophils # (test code = 16025-1) 0.0 0.0-0.2 [facility] CenterManual Llnkvxbemgyz7327-89-91 05:58:00 Test Item Value Reference Range Interpretation Comments Manual Differential (test code = Manual NO Differential) [facility] CenterN/[id number] 05:58:00 Test Item Value Reference Range Interpretation [...] recommended.Repeat testing recommended prior to treatment. Desirable LevelsPermian Regional Medical CenterCholesterol Crkli0445-60-89 05:58:00 Test Item Value Reference Range Interpretation Comments Cholesterol Level (test code = 2093-3) 131 0-200 [facility] CenterTriglycerides Kyysh1293-84-54 05:58:00 Test Item Value Reference Range Interpretation Comments Triglycerides Level (test code = 895 10-150 2571-8) Normal triglycerides: <150 mg/dLBorderline-high triglycerides: 150-199 mg/dLHigh triglycerides: 200-499 mg/dLVery high triglycerides: > or = 500 mg/dLPermian Regional Medical CenterHDL Srqjownglhe3938-06-76 05:58:00 Test Item Value Reference Range Interpretation Comments HDL Cholesterol (test code = 2085-9) < 5.0 40-130 [facility] CenterN/Y1756-83-05 05:58:00 Test Item Value Reference Range Interpretation Comments N/A (test code = 57823-7) 26.0 0.0-5.0 [facility] CenterLDL Cholesterol (Measured)2019-09-08 05:58:00 Test Item Value Reference Range Interpretation Comments LDL Cholesterol (Measured) (test code = 13 0-130 20094-8) *LDL Cholesterol <130 mg/dL, No CHD or CHD Risk Equivalent <100 mg/dL, With CHD or CHD Risk Equivalent LDL Cholesterol Therapeutic Goal:100 mg/dL or Less if CHD or CHD Risk Equivalent Present<130 mg/dL if No CHD or REq; 2 or more Risk Factors<160 mg/dL if No CHD or REq; 0-1 Risk Factors Reference: ATP III, ROYER, 285:19, 0346-97, 2001.[facility] Fallsodium Kbhct3650-65-65 05:58:00 Test Item Value Reference Range Interpretation Comments Sodium Level (test code = 2951-2) 130 135-144 [facility] CenterPotassium Expxp0588-32-90 05:58:00 Test Item Value Reference Range Interpretation Comments Potassium Level (test code = 2823-3) 4.3 3.5-5.1 [facility] CenterChloride Vipqa8993-96-57 05:58:00 Test Item Value Reference Range Interpretation Comments Chloride Level (test code = 2075-0) 95 101-111 [facility] CenterCarbon Dioxide Rnmew7519-45-98 05:58:00 Test Item Value Reference Range Interpretation Comments Carbon Dioxide Level (test code = 29 22-32 8-9) [facility] CenterAnion Gzx9884-97-81 05:58:00 Test Item Value Reference Range Interpretation Comments Anion Gap (test code = 12017-6) 10.3 10-20 [facility] CenterGlucose Rdqpv1586-07-34 05:58:00 Test Item Value Reference Range Interpretation [...] tolerance (IGT) or impaired fasting glucose (IFG). [facility] CenterBlood Urea Hhbzdnmf5873-45-51 05:58:00 Test Item Value Reference Range Interpretation Comments Blood Urea Nitrogen (test code = 46 8-26 3094-0) [facility] CenterCreatinine2019-10-13 05:58:00 Test Item Value Reference Range Interpretation Comments Creatinine (test code = 2160-0) 1.1 0.61-1.24 [facility] CenterEGFR Dhmp1646-16-58 05:58:00 Test Item Value Reference Range Interpretation Comments EGFR Note (test code = 68964-7) 103.3 59.3-175.8 eGFR (Estimated Glomerular Filtration Rate) eGFR calculation value obtained using the Viera HospitalQuadratic (Q) equation. The reportable reference range isrecommended to be greater than 60 ml/min/1.73m. This is anestimation of the patient's GFR and clinical correlation isrecommended. This eGFR calculation does not account for race. This resultmay differ from other equations available. [facility] CenterCalcium Yrosm0072-48-43 05:58:00 Test Item Value Reference Range Interpretation Comments Calcium Level (test code = 60271-9) 7.4 8.9-10.3 [facility] CenterAlbumin2019-10-13 05:58:00 Test Item Value Reference Range Interpretation Comments Albumin (test code = 1751-7) 2.1 3.5-5.0 [facility] CenterTotal Gpggropja8788-82-27 05:58:00 Test Item Value Reference Range Interpretation Comments Total Bilirubin (test code = 1975-2) 1.2 0.2-1.2 [facility] CenterAlkaline Xktzaedhxnz7186-08-47 05:58:00 Test Item Value Reference Range Interpretation Comments Alkaline Phosphatase (test code = 53 32-91 6768-6) [facility]tal Cesfiin5390-67-35 05:58:00 Test Item Value Reference Range Interpretation Comments Total Protein (test code = 2885-2) 5.3 6.5-8.1 [facility] CenterAlanine Aminotransferase (ALT/SGPT)2019-09-08 05:58:00 Test Item Value Reference Range Interpretation Comments Alanine Aminotransferase (ALT/SGPT) 23 7-55 (test code = 1742-6) [facility] CenterAspartate Amino Transf (AST/SGOT)2019-09-08 05:58:00 Test Item Value Reference Range Interpretation Comments Aspartate Amino Transf (AST/SGOT) (test 18 15-41 code = 1920-8) [facility] CenterGlobulin2019-10-13 05:58:00 Test Item Value Reference Range Interpretation Comments Globulin (test code = 23230-1) 3.2 2.3-3.5 [facility] CenterAlbumin/Globulin Oohbi0078-88-16 05:58:00 Test Item Value Reference Range Interpretation Comments Albumin/Globulin Ratio (test code = 0.7 1.2-2.2 1759-0) [facility] A IgM Lntmrdsp3802-81-54 05:58:00 Test Item Value Reference Range Interpretation Comments Hepatitis A IgM Antibody (test NONREACTIVE NONREACTIVE code = 46405-7) [facility] B Surface Txriuft7007-89-16 05:58:00 Test Item Value Reference Range Interpretation Comments Hepatitis B Surface Antigen (test NONREACTIVE NONREACTIVE code = 5196-1) [facility] B Core IgM Twffdkkq7343-01-30 05:58:00 Test Item Value Reference Range Interpretation Comments Hepatitis B Core IgM Antibody NONREACTIVE NONREACTIVE (test code = 5185-4) [facility] C [id number] 05:58:00 Test Item Value Reference Range Interpretation Comments Hepatitis C Antibody (test code = NONREACTIVE NONREACTIVE 27534-6) [facility] CenterHemoglobin A1c [id number] 00:00:00 Test Item Value Reference Range Interpretation Comments Hemoglobin A1c Percent (test code = 12.30 4.0-5.6 4548-4) Prediabetes 5.7% to 6.4%Diabetes 6.5% or higher Elevated levels of HbA1c suggest the need for moreaggressive treatmentof glycemia. The [place] Diabetes[employer] recommends that a primary goal of therapy shouldbe a HbA1c of <7% and that physicians should reevaluate thetreatment regimen in patients with HbA1c values consistently>8%. [facility]/[id number] 00:00:00 Test Item Value Reference Range Interpretation Comments N/A (test code = 32823-4) 307 A1C Result% Estimated Avg.Glucose (EAG) 6.0% 126 mg/dL 6.5% 140 mg/dL 7.0% 154 mg/dL 7.5% 169 mg/dL 8.0% 183 mg/dL 8.5% 197 mg/dL 9.0% 212 mg/dL 9.5% 226 mg/dL 10.0% 240 mg/dL Reference: kenneth Brown, Diabetes Care 31: 1437, 2008.[facility] [id number] 23:50:00 Test Item Value Reference Range Interpretation Comments Urine Color (test code = 05483-0) Yellow YELLOW [facility] Yilohad4101-03-91 23:50:00 Test Item Value Reference Range Interpretation Comments Urine Clarity (test code = 06403-2) Clear CLEAR [facility] Auwfela2311-34-24 23:50:00 Test Item Value Reference Range Interpretation Comments Urine Glucose (test code = 5792-7) >=500 NEGATIVE [facility] Ktnfpsowo5612-77-99 23:50:00 Test Item Value Reference Range Interpretation Comments Urine Bilirubin (test code = 5770-3) NEGATIVE NEGATIVE [facility] Xlbzwpp0110-04-55 23:50:00 Test Item Value Reference Range Interpretation Comments Urine Ketones (test code = 5797-6) 5 NEGATIVE [facility] Specific [id number] 23:50:00 Test Item Value Reference Range Interpretation Comments Urine Specific [place] (test code = 1.017 1.002-1.030 5811-5) [facility] [id number] 23:50:00 Test Item Value Reference Range Interpretation Comments Urine Blood (test code = 90399-9) SMALL NEGATIVE [facility] [id number] 23:50:00 Test Item Value Reference Range Interpretation Comments Urine pH (test code = 5803-2) 6 5.0-8.0 [facility] Zcxdktw0409-20-87 23:50:00 Test Item Value Reference Range Interpretation Comments Urine Protein (test code = 5804-0) NEGATIVE NEGATIVE [facility] Opfrnahzxtal0405-52-40 23:50:00 Test Item Value Reference Range Interpretation Comments Urine Urobilinogen (test code = 4.0 NEGATIVE 40269-4) [facility] Eoublns0006-94-74 23:50:00 Test Item Value Reference Range Interpretation Comments Urine Nitrite (test code = 5802-4) NEGATIVE NEGATIVE [facility] Leukocyte [id number] 23:50:00 Test Item Value Reference Range Interpretation Comments Urine Leukocyte Esterase (test code NEGATIVE NEGATIVE = 25415-7) [facility] [id number] 23:50:00 Test Item Value Reference Range Interpretation Comments Urine RBC (test code = 88502-9) 0-2 0-2 [facility] [id number] 23:50:00 Test Item Value Reference Range Interpretation Comments Urine WBC (test code = 51828-4) 0-2 0-5 [facility] Uupioejd5082-32-31 23:50:00 Test Item Value Reference Range Interpretation Comments Urine Bacteria (test code = 54445-2) RARE NEGATIVE [facility] CenterBlood [id number] 23:50:00 Test Item Value Reference Range Interpretation Comments Blood Culture (test code NO GROWTH AT 5 DAYS. = Blood Culture) [facility] Fallsegmented [id number] 22:20:00 Test Item Value Reference Range Interpretation Comments Segmented Neutrophils (test code = 84 42-75 76019-2) [facility] CenterLspckscxVwzfwbdfqrk6313-22-69 22:20:00 Test Item Value Reference Range Interpretation Comments Lymphocytes (test code = 62060-8) 10 20-51 [facility] CenterMonocytes2019-10-12 22:20:00 Test Item Value Reference Range Interpretation Comments Monocytes (test code = 85765-1) 6 2-9 [facility] CenterPlatelet Mbnawvkz5045-02-04 22:20:00 Test Item Value Reference Range Interpretation Comments Platelet Estimate (test code = DECREASED ADEQUATE 96856-6) [facility] CenterPlatelet Mtzhqmakaz8588-41-46 22:20:00 Test Item Value Reference Range Interpretation Comments Platelet Morphology LARGE PLATELETS SEEN NORMAL (test code = 52471-0) [facility] CenterNormal RBC Wzkozvrfqg1369-27-73 22:20:00 Test Item Value Reference Range Interpretation Comments Normal RBC Morphology (test code = NORMAL NORMAL 86816-0) [facility] CenterBlood Smear Pathologist [id number] 22:20:00 Test Item Value Reference Range Interpretation Comments Blood Smear Pathologist Review (test POSITIVE code = 53394-2) [facility] CenterMalaria [id number] 22:20:00 Test Item Value Reference Range Interpretation Comments Malaria Smear (test code = 6670-4) POSITIVE NEGATIVE ALERT (CRITICAL) VALUE -CALLED RESULTS TO AND VERBAL READ BACK FROMKITA TABOR RN @ [id number] 09/08/19 LAB.Inna to reference lab for confirmation. [facility] CenterProthrombin [id number] 22:20:00 Test Item Value Reference Range Interpretation Comments Prothrombin Time (test code = 5964-2) 12.2 10.0-12.9 [facility] CenterINR International Normalized Aufna1249-17-29 22:20:00 Test Item Value Reference Range Interpretation [...] Thrombosis and Antiphospholipid syndrome Prevention of recurrent [place] Sixth ACCP Consensus Conference on Antithrombotic Therapy,Chest 2001; 119:Supplement 8-21.[facility] CenterActivated Partial Thromboplast [id number] 22:20:00 Test Item Value Reference Range Interpretation Comments Activated Partial Thromboplast Time 26.2 25.1-36.5 (test code = 3173-2) [facility] CenterMagnesium Kvfxq2994-08-83 22:20:00 Test Item Value Reference Range Interpretation Comments Magnesium Level (test code = 35082-4) 2.6 1.8-2.5 [facility] CenterCreatine Awkktp4921-66-90 22:20:00 Test Item Value Reference Range Interpretation Comments Creatine Kinase (test code = 2157-6) 130 49-397 [facility] CenterCreatine Kinase [id number] 22:20:00 Test Item Value Reference Range Interpretation Comments Creatine Kinase MB (test code = 0.76 0.6-6.3 58824-8) [facility] CenterTroponin [id number] 22:20:00 Test Item Value Reference Range Interpretation Comments Troponin I (test code = 52459-4) 0.02 0.00-0.03 Troponin I-Interpretation Reference : <0.03 [...] conditions.3. Serial sampling is critical for accurate diagnosis.[facility] CenterMyoglobin2019-10-12 22:20:00 Test Item Value Reference Range Interpretation Comments Myoglobin (test code = 2639-3) 69 17.4-106.0 [facility] CenterAmmonia2019-10-12 22:20:00 Test Item Value Reference Range Interpretation Comments Ammonia (test code = 34565-8) 20 11-35 [facility] CenterInfluenza Type A [id number] 22:20:00 Test Item Value Reference Range Interpretation Comments Influenza Type A Antigen (test code NEGATIVE NEGATIVE = 82744-7) [facility] CenterInfluenza Type B Pjqrkbb9266-19-95 22:20:00 Test Item Value Reference Range Interpretation Comments Influenza Type B Antigen (test code NEGATIVE NEGATIVE = 37211-6) *This test method is capable of detecting both viable andnon-viable influenza particles. Performancedepends on theantigen load and may not correlate with other diagnosticmethods performed on the same specimen. *Results of the FLUA+B test should be correlated with theclinical history, epidemiological data and other dataavailable to the clinician evaluating the patient.[facility] CenterPlasmodium species DNA (PCR)2019-09-07 22:20:00 Test Item Value Reference Range Interpretation Comments Plasmodium species DNA (PCR) (test Positive Negative code = Plasmodium species DNA (PCR)) This test was developed and its performance characteristicsdetermined by [employer]. It has not been cleared or approvedby the Food and Drug Administration. The FDA hasdetermined that such clearance or approval is notnecessary.[facility] HospitalPlasmodium falciparum (PCR)2019-09-07 22:20:00 Test Item Value Reference Range Interpretation Comments Plasmodium falciparum (PCR) (test Positive . code = Plasmodium falciparum (PCR)) [facility] CenterPlasmodium knowlesi (PCR)2019-09-07 22:20:00 Test Item Value Reference Range Interpretation Comments Plasmodium knowlesi (PCR) (test code Negative . = Plasmodium knowlesi (PCR)) [facility] CenterPlasmodium malariae (PCR)2019-09-07 22:20:00 Test Item Value Reference Range Interpretation Comments Plasmodium malariae (PCR) (test code Negative . = Plasmodium malariae (PCR)) [facility] CenterPlasmodium ovale (PCR)2019-09-07 22:20:00 Test Item Value Reference Range Interpretation Comments Plasmodium ovale (PCR) (test code = Negative . Plasmodium ovale (PCR)) [facility] CenterPlasmodium vivax (PCR)2019-09-07 22:20:00 Test Item Value Reference Range Interpretation Comments Plasmodium vivax (PCR) (test code = Negative . Plasmodium vivax (PCR)) Performed at: [address] [id number] Director: Timothy SALDANA, Phone: [phone] St[facility] [place] [place] [id number] 22:20:00 Test Item Value Reference Range Interpretation Comments Blood Culture (test code NO GROWTH AT 5 DAYS. = Blood Culture) [facility] [place] [place] Urea [id number] 20:29:00 Test Item Value Reference Range Interpretation Comments Blood Urea Nitrogen (test code = 23 8-26 3094-0) [facility] CenterCreatinine2019-01-12 20:29:00 Test Item Value Reference Range Interpretation Comments Creatinine (test code = 2160-0) 1.1 0.61-1.24 [facility] CenterEGFR Wrxt4317-07-30 20:29:00 Test Item Value Reference Range Interpretation Comments EGFR Note (test code = 10427-0) 103.9 59.3-175.8 eGFR (Estimated Glomerular Filtration Rate) eGFR calculation value obtained using the Lewis Run ClinicQuadratic (MCQ) equation. The reportable reference range isrecommended to be greater than 60 ml/min/1.73m. This is anestimation of the patient's GFR and clinical correlation isrecommended. This eGFR calculation does not account for race. This resultmay differ from other equations available. [facility] BaumvenjDjdbvra4254-74-13 20:29:00 Test Item Value Reference Range Interpretation Comments Albumin (test code = 1751-7) 4.2 3.5-5.0 [facility] CenterTotal Vorgraxvl2711-96-71 20:29:00 Test Item Value Reference Range Interpretation Comments Total Bilirubin (test code = 1975-2) 0.4 0.2-1.2 [facility] CenterAlkaline Eukxhqfctjr4790-06-48 20:29:00 Test Item Value Reference Range Interpretation Comments Alkaline Phosphatase (test code = 74 32-91 6768-6) [facility] CenterTotal Qvkzrzk0408-31-56 20:29:00 Test Item Value Reference Range Interpretation Comments Total Protein (test code = 2885-2) 7.0 6.5-8.1 [facility] CenterAlanine Aminotransferase (ALT/SGPT)2018-12-08 20:29:00 Test Item Value Reference Range Interpretation Comments Alanine Aminotransferase (ALT/SGPT) 24 7-55 (test code = 1742-6) [facility] CenterAspartate Amino Transf (AST/SGOT)2018-12-08 20:29:00 Test Item Value Reference Range Interpretation Comments Aspartate Amino Transf (AST/SGOT) (test 24 15-41 code = 1920-8) [facility] CenterGlobulin2019-01-12 20:29:00 Test Item Value Reference Range Interpretation Comments Globulin (test code = 87135-0) 2.8 2.3-3.5 [facility] CenterAlbumin/Globulin Viaji6732-91-27 20:29:00 Test Item Value Reference Range Interpretation Comments Albumin/Globulin Ratio (test code = 1.5 1.2-2.2 1759-0) [facility] Fallsodium Pftgm9865-29-06 20:22:00 Test Item Value Reference Range Interpretation Comments Sodium Level (test code = 2951-2) 134 135-144 L [facility] CenterPotassium [id number] 20:22:00 Test Item Value Reference Range Interpretation Comments Potassium Level (test code = 2823-3) 4.0 3.5-5.1 [facility] CenterChloride Ufmls6441-15-90 20:22:00 Test Item Value Reference Range Interpretation Comments Chloride Level (test code = 2075-0) 99 101-111 L [facility] CenterCarbon Dioxide Ckrea8499-58-31 20:22:00 Test Item Value Reference Range Interpretation Comments Carbon Dioxide Level (test code = 27 22-32 8-9) [facility] CenterAnion [id number] 20:22:00 Test Item Value Reference Range Interpretation Comments Anion Gap (test code = 83773-7) 12.0 10-20 [facility] CenterGlucose [id number] 20:22:00 Test Item Value Reference Range Interpretation Comments Glucose Level (test code = 2345-7) 259 65-99 H Prediabetes 100 to 125 mg/dlDiabetes 126 mg/dl or higher Prediabetes refers to individuals with plasma glucose levelsintermediate between those considered normal and thoseconsidered diabetic and is also referred to as impairedglucose tolerance (IGT) or impaired fasting glucose (IFG). [facility] CenterCalcium [id number] 20:22:00 Test Item Value Reference Range Interpretation Comments Calcium Level (test code = 19799-9) 8.9 8.9-10.3 [facility] CenterWhite Blood Vkcud8314-48-20 20:21:00 Test Item Value Reference Range Interpretation Comments White Blood Count (test code = 6690-2) 9.3 4.8-10.8 [facility] CenterRed Blood [id number] 20:21:00 Test Item Value Reference Range Interpretation Comments Red Blood Count (test code = 789-8) 5.09 4.70-6.00 [facility] CenterHemoglobin2019-01-12 20:21:00 Test Item Value Reference Range Interpretation Comments Hemoglobin (test code = 718-7) 14.1 13.5-17.5 [facility] CenterHematocrit2019-01-12 20:21:00 Test Item Value Reference Range Interpretation Comments Hematocrit (test code = 47656-8) 41.9 42.0-52.0 L [facility] CenterMean Corpuscular Xbgjwi9531-70-51 20:21:00 Test Item Value Reference Range Interpretation Comments Mean Corpuscular Volume (test code = 82.2 80.0-100.0 51441-0) [facility] Corpuscular Pbnvnxuace6476-09-72 20:21:00 Test Item Value Reference Range Interpretation Comments Mean Corpuscular Hemoglobin (test code 27.8 27.0-31.0 = 785-6) [facility] Corpuscular Hgb Concent Bmni8074-40-10 20:21:00 Test Item Value Reference Range Interpretation Comments Mean Corpuscular Hgb Concent Diff (test 33.8 32.0-36.0 code = 786-4) [facility] CenterRed Cell Distribution [id number] 20:21:00 Test Item Value Reference Range Interpretation Comments Red Cell Distribution Width (test code 14.8 11.5-14.5 H = 788-0) [facility] CenterPlatelet Yryal3565-36-26 20:21:00 Test Item Value Reference Range Interpretation Comments Platelet Count (test code = 777-3) 181 130-400 [facility] Platelet Wynfxn3213-88-26 20:21:00 Test Item Value Reference Range Interpretation Comments Mean Platelet Volume (test code = 8.3 7.4-10.4 06773-3) [facility] CenterGranulocytes (%)2018-12-08 20:21:00 Test Item Value Reference Range Interpretation Comments Granulocytes (%) (test code = 40736-9) 71.4 50.0-75.0 [facility] CenterLymphocytes %2018-12-08 20:21:00 Test Item Value Reference Range Interpretation Comments Lymphocytes % (test code = 736-9) 17.5 20.0-40.0 L [facility] CenterMonocytes %2018-12-08 20:21:00 Test Item Value Reference Range Interpretation Comments Monocytes % (test code = 5905-5) 9.7 0.0-15.0 [facility] CenterEosinophils %2018-12-08 20:21:00 Test Item Value Reference Range Interpretation Comments Eosinophils % (test code = 713-8) 0.5 0.0-10.0 [facility] CenterBasophils %2018-12-08 20:21:00 Test Item Value Reference Range Interpretation Comments Basophils % (test code = 20964-4) 0.9 0.0-2.0 [facility] CenterGranulocytes #2018-12-08 20:21:00 Test Item Value Reference Range Interpretation Comments Granulocytes # (test code = 24630-2) 6.7 1.8-6.4 H [facility] CenterLymphocytes #2018-12-08 20:21:00 Test Item Value Reference Range Interpretation Comments Lymphocytes # (test code = 15630-5) 1.6 1.2-3.6 [facility] CenterMonocytes #2018-12-08 20:21:00 Test Item Value Reference Range Interpretation Comments Monocytes # (test code = 742-7) 0.9 0.3-0.9 [facility] CenterEosinophils #2018-12-08 20:21:00 Test Item Value Reference Range Interpretation Comments Eosinophils # (test code = 711-2) 0.0 0.0-0.5 [facility] CenterBasophils #2018-12-08 20:21:00 Test Item Value Reference Range Interpretation Comments Basophils # (test code = 75838-5) 0.1 0.0-0.2 [facility] CenterManual Ayxlsnytyyaj3913-32-66 20:21:00 Test Item Value Reference Range Interpretation Comments Manual Differential (test code = Manual NO Differential) [facility] CenterGlucose (Fingerstick)2018-12-08 19:30:00 Test Item Value Reference Range Interpretation Comments Glucose (Fingerstick) (test code = 269 65-99 H 99927-3) [facility]
[2020-08-20 20:36] LABS: Absolute Lymphocytes (CBC) 1.3 K/uL (0.7-4.9); Basophils % 0.4 % (0-1.3); Hematocrit 45.4 % (39.6-49.0); Lymphocytes % 15.7 % (15.3-44.8); MPV 9.2 fL (7.6-11.3); RBC Red Blood Cell Count 5.42 M/uL (4.33-5.43)
[2020-08-20 20:46] LABS: BUN Blood Urea Nitrogen 26 mg/dL (7-18); Bicarbonate 26 mmol/L (21-32); Sodium Level 133 mmol/L (136-145)
[2020-08-20 20:50] LABS: Glucose Level 512 mg/dL (74-106)
[2020-08-20] MEDS ORDERED: NA CHLORIDE 0.9% 1,000 ML ONE (21:11)
[2020-08-20] MEDS ORDERED: INSULIN -REGULAR HUMAN 50 UNIT/0.5 ML ML ONE ×2 (21:11→22:21)
--- NOTE | 2020-08-20 22:57 | ER ---
Nurse's Notes [facility] Name: Steph Corey Age: 45 yrs Sex: Male : 1975 Arrival Date: 08/20/2020 Time: 18:59 Bed 4 Private MD: Diagnosis: Hyperglycemia, unspecified;Strain of muscle and tendon of back wall of thorax Presentation: 08/20 19:03 Chief complaint: Patient states: i have high blood sugar in the morning , i had my mg2 insulin in the morning. i also have right upper back pain after lifting heavy jug of water 2 days ago. Coronavirus screen: Client denies travel out of the [place] in the last 14 days. At this time, the client does not indicate any symptoms associated with coronavirus-19. Ebola Screen: No symptoms or risks identified at this time. Initial Sepsis Screen: Does the patient meet any 2 criteria? No. Patient's initial sepsis screen is negative. Does the patient have a suspected source of infection? No. Patient's initial sepsis screen is negative. Risk Assessment: Do you want to hurt yourself or someone else? Patient reports no desire to harm self or others. Onset of symptoms was August 19, 2020. 19:03 Method Of Arrival: Ambulatory mg2 19:03 Acuity: HEBER 3 mg2 Historical: - Allergies: 19:07 No Known Allergies; mg2 - Home Meds: 19:07 Metformin Oral [Active]; insulin [Active]; bp medicine [Active]; aspirin [Active]; mg2 Metoprolol Tartrate Oral [Active]; - PMHx: 19:07 Diabetes - IDDM; Hypertension; mg2 - PSHx: 19:07 heart failure; mg2 - Immunization history:: Flu vaccine is not up to date. - Social history:: Smoking status: Patient denies any tobacco usage or history of. Patient/guardian denies using alcohol, street drugs, IV drugs. Screenin:29 Abuse screen: Denies threats or abuse. Denies injuries from another. Nutritional rr5 screening: No deficits noted. Tuberculosis screening: No symptoms or risk factors identified. Fall Risk IV access (20 points). Total Juarez Fall Scale indicates No Risk (0-24 pts). Assessment: 19:25 General: Appears in no apparent distress. uncomfortable, Behavior is calm, cooperative, rr5 appropriate for age. Pain: Complains of pain in back Pain currently is 10 out of 10 on a pain scale. Quality of pain is described as aching, Pain began 2-3 days ago. Is intermittent. Neuro: Level of Consciousness is awake, alert, obeys commands, Oriented to person, place, time, situation. Cardiovascular: Capillary refill < 3 seconds Patient's skin is warm and dry. Respiratory: Airway is patent Respiratory effort is even, unlabored, Respiratory pattern is regular, symmetrical. GI: Reports high sugar. : No signs and/or symptoms were reported regarding the genitourinary system. EENT: No signs and/or symptoms were reported regarding the EENT system. Derm: Skin is intact, is healthy with good turgor, Skin temperature is warm. Musculoskeletal: Circulation, motion, and sensation intact. Capillary refill < 3 seconds, Reports pain in back. 20:52 Reassessment: Patient appears in no apparent distress at this time. Patient is alert, rr5 oriented x 3, equal unlabored respirations, skin warm/dry/pink. awaiting for results. sugar 512 mg/Dl ED provider aware. 22:15 Reassessment: Patient appears in no apparent distress at this time. Patient is alert, rr5 oriented x 3, equal unlabored respirations, skin warm/dry/pink. repeat glucose done. ED provider aware with order made and carried out. 23:12 Reassessment: Patient appears in no apparent distress at this time. Patient is alert, rr5 oriented x 3, equal unlabored respirations, skin warm/dry/pink. discharge instruction given and explained without complaints made. Vital Signs: 19:03 BP 152 / 107; Pulse 95; Resp 18; Temp 98.1; Pulse Ox 100% on R/A; Weight 82.55 kg; mg2 Height 5 ft. 8 in. (172.72 cm); Pain 10/10; 20:30 BP 136 / 96; Pulse 93; Resp 15; Pulse Ox 98% ; rr5 21:30 BP 146 / 89; Pulse 96; Resp 19; Pulse Ox 100% ; rr5 22:49 BP 141 / 89; Pulse 90; Resp 16; Pulse Ox 99% ; rr5 23:13 BP 135 / 75; Pulse 85; Resp 16; Pulse Ox 99% ; rr5 19:03 Body Mass Index 27.67 (82.55 kg, 172.72 cm) mg2 ED Course: 18:59 Patient arrived in ED. as 19:05 Triage completed. mg2 19:05 Arm band placed on. mg2 19:08 Prisca Gore F[facility]-C [facility]. kb 19:08 Jeff Brandt MD is Attending Physician. kb 19:13 Ravinder Edwards, RN is Primary Nurse. rr5 19:25 Inserted saline lock: 20 gauge in right forearm, using aseptic technique. Blood rr5 collected. 19:29 Patient has correct armband on for positive identification. Bed in low position. Call rr5 light in reach. Side rails up X2. pvc monitor on. Pulse ox on. NIBP on. 22:09 Chest Single View XRAY In Process Unspecified. EDMS 23:13 No provider procedures requiring assistance completed. IV discontinued, intact, rr5 bleeding controlled, No redness/swelling at site. Pressure dressing applied. Administered Medications: 21:10 Drug: Insulin Regular Human 10 units {Co-Signature: leta (Socrates Collazo RN).} Route: IVP; rr5 Site: right forearm; 22:00 Follow up: Response: No adverse reaction; Blood sugar is lowered rr5 21:10 Drug: NS 0.9% 1000 ml Route: IV; Rate: 1000 ml; Site: right forearm; rr5 22:00 Follow up: Response: No adverse reaction; IV Status: Completed infusion; IV Intake: rr5 1000ml 22:15 Drug: Insulin Regular Human 5 units {Co-Signature: leta (Socrates Collazo RN).} Route: IVP; rr5 Site: right forearm; 23:14 Follow up: Response: No adverse reaction rr5 Point of Care Testing: Blood Glucose: 19:10 Blood Glucose: 493 mg/dL; mg2 Ranges: Intake: 22:00 IV: 1000ml; Total: 1000ml. rr5 Outcome: 22:56 Discharge ordered by . kb 23:13 Discharged to home ambulatory. rr5 23:13 Condition: stable 23:13 Discharge instructions given to patient, Instructed on discharge instructions, follow up and referral plans. medication usage, Demonstrated understanding of instructions, follow-up care, medications, Prescriptions given X 1. 23:42 Patient left the ED. rr5 Signatures: Dispatcher [employer] EDMS Prisca Gore FNP-C FNP-Ckb Martinez, Amelia as Gardose Louis, RN RN mg2 Ravinder Edwards RN RN rr5 Socrates Collazo RN [id number]
--- NOTE | 2020-08-20 22:57 | EDPHYS ---
Physician Documentation [facility] Name: Steph Corey Age: 45 yrs Sex: Male : 1975 Arrival Date: 08/20/2020 Time: 18:59 Bed 4 Private MD: ZHANG Physician Jeff Brandt HPI: 08/20 22:14 This 45 yrs old Black Male presents to ER via Ambulatory with complaints of Back Pain, kb High Blood Sugar. 22:14 The patient presents with pain that is acute. The symptoms are located in the right kb subscapular area. Onset: The symptoms/episode began/occurred 4 day(s) ago. The pain does not radiate. Associated signs and symptoms: The patient has no apparent associated signs or symptoms. The problem was sustained when lifting water. Modifying factors: The patient symptoms are alleviated by nothing, the patient symptoms are aggravated by any movement. Severity of symptoms: At their worst the symptoms were mild, moderate, in the emergency department the symptoms are unchanged. The patient has not experienced similar symptoms in the past. The patient has not recently seen a physician. Pt reports right scapular pain after lifting water 4 days ago. States he has also had high blood sugar all day today. Historical: - Allergies: 19:07 No Known Allergies; mg2 - Home Meds: 19:07 Metformin Oral [Active]; insulin [Active]; bp medicine [Active]; aspirin [Active]; mg2 Metoprolol Tartrate Oral [Active]; - PMHx: 19:07 Diabetes - IDDM; Hypertension; mg2 - PSHx: 19:07 heart failure; mg2 - Immunization history:: Flu vaccine is not up to date. - Social history:: Smoking status: Patient denies any tobacco usage or history of. Patient/guardian denies using alcohol, street drugs, IV drugs. ROS: 22:13 Constitutional: Negative for fever, chills, and weight loss, Cardiovascular: Negative kb for chest pain, palpitations, and edema, Respiratory: Negative for shortness of breath, cough, wheezing, and pleuritic chest pain, Abdomen/GI: Negative for abdominal pain, nausea, vomiting, diarrhea, and constipation, : Negative for injury, bleeding, discharge, and swelling, MS/Extremity: Negative for injury and deformity, Skin: Negative for injury, rash, and discoloration, Neuro: Negative for headache, weakness, numbness, tingling, and seizure. 22:13 Back: Positive for pain at rest, pain with movement, of the right subscapular area. Exam: 22:13 Constitutional: This is a well developed, well nourished patient who is awake, alert, kb and in no acute distress. Head/Face: Normocephalic, atraumatic. Chest/axilla: Normal chest wall appearance and motion. Nontender with no deformity. No lesions are appreciated. Cardiovascular: Regular rate and rhythm with a normal S1 and S2. No gallops, murmurs, or rubs. Normal PMI, no JVD. No pulse deficits. Respiratory: Lungs have equal breath sounds bilaterally, clear to auscultation and percussion. No rales, rhonchi or wheezes noted. No increased work of breathing, no retractions or nasal flaring. Abdomen/GI: Soft, non-tender, with normal bowel sounds. No distension or tympany. No guarding or rebound. No evidence of tenderness throughout. Back: No spinal tenderness. No costovertebral tenderness. Full range of motion. Skin: Warm, dry with normal turgor. Normal color with no rashes, no lesions, and no evidence of cellulitis. MS/ Extremity: Pulses equal, no cyanosis. Neurovascular intact. Full, normal range of motion. Neuro: Awake and alert, GCS 15, oriented to person, place, time, and situation. Cranial nerves II-XII grossly intact. Motor strength 5/5 in all extremities. Sensory grossly intact. Cerebellar exam normal. Normal gait. Vital Signs: 19:03 BP 152 / 107; Pulse 95; Resp 18; Temp 98.1; Pulse Ox 100% on R/A; Weight 82.55 kg; mg2 Height 5 ft. 8 in. (172.72 cm); Pain 10/10; 20:30 BP 136 / 96; Pulse 93; Resp 15; Pulse Ox 98% ; rr5 21:30 BP 146 / 89; Pulse 96; Resp 19; Pulse Ox 100% ; rr5 22:49 BP 141 / 89; Pulse 90; Resp 16; Pulse Ox 99% ; rr5 23:13 BP 135 / 75; Pulse 85; Resp 16; Pulse Ox 99% ; rr5 19:03 Body Mass Index 27.67 (82.55 kg, 172.72 cm) mg2 MDM: 19:11 Patient medically screened. kb 22:03 Data reviewed: vital signs, nurses notes. Data interpreted: Pulse oximetry: on room air kb is 100 %. Interpretation: normal. 22:14 Counseling: I had a detailed discussion with the patient and/or guardian regarding: the kb historical points, exam findings, and any diagnostic results supporting the discharge/admit diagnosis, lab results, radiology results, the need for outpatient follow up, a family practitioner, to return to the emergency department if symptoms worsen or persist or if there are any questions or concerns that arise at home. 08/20 19:22 Order name: Glucose, Ancillary Testing; Complete Time: 19:25 EDMS 08/20 19:46 Order name: CBC with Diff; Complete Time: 20:40 kb 08/20 19:46 Order name: Basic Metabolic Panel; Complete Time: 20:55 kb 08/20 19:46 Order name: Acetone, Serum; Complete Time: 20:55 kb 08/20 22:10 Order name: Glucose, Ancillary Testing; Complete Time: 22:11 EDMS 08/20 23:05 Order name: Glucose, Ancillary Testing; Complete Time: 23:08 EDMS 08/20 19:19 Order name: Blood Glucose Level; Complete Time: 19:23 kb 08/20 19:46 Order name: IV Start; Complete Time: 20:21 kb 08/20 21:36 Order name: Chest Single View XRAY rr5 08/20 22:49 Order name: Blood Glucose Level; Complete Time: 22:54 kb Administered Medications: 21:10 Drug: Insulin Regular Human 10 units {Co-Signature: leta (Socrates Collazo RN).} Route: IVP; rr5 Site: right forearm; 22:00 Follow up: Response: No adverse reaction; Blood sugar is lowered rr5 21:10 Drug: NS 0.9% 1000 ml Route: IV; Rate: 1000 ml; Site: right forearm; rr5 22:00 Follow up: Response: No adverse reaction; IV Status: Completed infusion; IV Intake: rr5 1000ml 22:15 Drug: Insulin Regular Human 5 units {Co-Signature: leta (Socrates Collazo RN).} Route: IVP; rr5 Site: right forearm; 23:14 Follow up: Response: No adverse reaction rr5 Point of Care Testing: Blood Glucose: 19:10 Blood Glucose: 493 mg/dL; mg2 Ranges: Critical Glucose Levels:Adult <50 mg/dl or >400 mg/dl <40 mg/dl or >180 mg/dl Disposition: 08/21 11:12 Co-signature as Attending Physician, Jeff Brandt MD I agree with the assessment and kirill plan of care. Disposition: 08/20/20 22:56 Discharged to Home. Impression: Hyperglycemia, unspecified, Strain of muscle and tendon of back wall of thorax. - Condition is Stable. - Discharge Instructions: Muscle Strain, [id number], Hyperglycemia, [id number]. - Prescriptions for Cyclobenzaprine 10 mg Oral Tablet - take 1 tablet by ORAL route every 8 hours As needed; 21 tablet. - Medication Reconciliation Form, Thank You Letter, Antibiotic Education, Prescription Opioid Use form. - Follow up: Emergency Department; When: As needed; Reason: Worsening of condition. Follow up: Private Physician; When: 2 - 3 days; Reason: Recheck today's complaints, Continuance of care, Re-evaluation by your physician. Signatures: Dispatcher [employer] EDPrisca Scott, HOT METAL MIXER OPERATOR HELPER-C HOT METAL MIXER OPERATOR HELPER-Jeff Dye MD MD cha Gardose, Michele, RN RN mg2 Ravinder Edwards RN RN rr5 Socrates Collazo RN [email or web address] Corrections: (The following items were deleted from the chart) 08/20 23:42 22:56 08/20/2020 22:56 Discharged to Home. Impression: Hyperglycemia, unspecified; rr5 Strain of muscle and tendon of back wall of thorax. Condition is Stable. Forms are Medication Reconciliation Form, Thank You Letter, Antibiotic Education, Prescription Opioid Use. Follow up: Emergency Department; When: As needed; Reason: Worsening of condition. Follow up: Private Physician; When: 2 - 3 days; Reason: Recheck today's complaints, Continuance of care, Re-evaluation by your physician. kb
[2020-08-21 00:26] VITALS: TEMP 98.1
[2020-08-21 00:30] VITALS: O2SAT 99
[2020-08-21 00:31] VITALS: BP 135/75
--- NOTE | 2020-08-21 07:19 | RAD REPORT ---
EXAM DESCRIPTION: Jigna Single View08/20/2020 10:09 pm CLINICAL HISTORY: Hypertension/pain COMPARISON: July 29, 2020 FINDINGS: The lungs appear clear of acute infiltrate. The heart is mildly enlarged IMPRESSION: No acute abnormalities displayed
== END 2020-08-20 23:42 | disposition home or self-care (01) ==
LOC: ER 18:58
DX: S29.012A Strain of muscle and tendon of back wall of thorax, initial encounter (principal); E11.65 Type 2 diabetes mellitus with hyperglycemia; I10 Essential (primary) hypertension; Z79.82 Long term (current) use of aspirin
CPT/HCPCS: 96361; 85025; 80048; 36415; 82010; 82947 ×3; 71045; 96374; 99284; J7030